=== PATIENT | male | born 1975 | race Caucasian/White ===

== ENCOUNTER → 2016-06-12 | Outpatient (CLI) | payer MEDICARE ==
[2016-02-28 10:51] VITALS: BP 160/96
[~2016-06-12] MED LIST: CYCL5TAB PO; DOCU-27 PO; GABA-586 PO; HYDR-2666 PO; OXYC-323 PO; OXYC5TAB88 PO
--- NOTE | 2016-06-12 08:59 | KCIC ---
ABDOMINAL ULTRASOUND, 06/12/2016: History: Abdominal pain The gallbladder is within normal limits in size. There is no sonographic evidence of cholelithiasis. The gallbladder funes are not thickened. No bile duct dilatation is seen. The liver demonstrates increased echogenicity suggesting fatty change. It measures 19 centimeters in craniocaudad extent. The pancreas and central retroperitoneum including the aorta and inferior vena cava were obscured by overlying bowel. The spleen was also not visualized. No renal abnormality is detected. No free fluid is evident in the abdomen. IMPRESSION: 1. No gallbladder abnormality is detected. 2. Increased hepatic echogenicity suggesting hepatic steatosis. 3. Inadequate visualization of the central retroperitoneum and the spleen due to overlying bowel and the patient's body habitus. Electronically signed by: Jeff Garcia MD (Jun 12, 2016 08:57:53)
== END | disposition home or self-care (01) ==
LOC: KCIC US 07:52
PROVIDERS: ATTEND Family Medicine
DX: R10.9 Unspecified abdominal pain (principal)
CPT/HCPCS: 76700

== ENCOUNTER → 2018-05-17 | Outpatient (CLI) | payer MEDICARE ==
[2016-02-28 10:51] VITALS: BP 160/96
[~2018-05-17] MED LIST changes: +AMOX1TAB61 PO; +ASCO500T2 PO; +DOCU-109 PO; -DOCU-27 PO; +DOXY100C2 PO; -GABA-586 PO; +GABA300C18 PO; -HYDR-2666 PO; +HYDR-2761 PO; +INSU100I11 SQ; +INSU100I13 SQ; +LISI-338 PO; +MULT1TAB90 PO; -OXYC-323 PO; +OXYC1TAB15 PO
[2018-05-17 15:17] LABS: BASO # 0.1 x10^3/uL (0.0-0.2); BASO % 1 % (0-3); EOS # 0.2 x10^3/uL (0.0-0.7); EOS % 2 % (0-3); HEMATOCRIT 50.4 % (39.0-53.0); HEMOGLOBIN 16.9 g/dL (13.0-17.5); LYMPH # 2.3 x10^3/uL (1.0-4.8); LYMPH % 22 % (24-48); MEAN CORPUSCULAR HEMOGLOBIN 29 pg (25-35); MEAN CORPUSCULAR HGB CONC 34 g/dL (31-37); MEAN CORPUSCULAR VOLUME 87 fL (79-100); MONO # 0.6 x10^3/uL (0.0-1.1); MONO % 6 % (0-9); NEUT # 7.1 x10^3uL (1.8-7.7); NEUT % 69 % (31-73); PLATELET COUNT 269 x10^3/uL (140-400); RED BLOOD COUNT 5.82 x10^6/uL (4.30-5.70); RED CELL DISTRIBUTION WIDTH 13.4 % (11.5-14.5); WHITE BLOOD COUNT 10.3 x10^3/uL (4.0-11.0)
[2018-05-17 15:44] LABS: ALBUMIN 3.3 g/dL (3.4-5.0); ALBUMIN/GLOBULIN RATIO 0.7 (1.0-1.7); C-REACTIVE PROTEIN 28.6 mg/L (0-3.3); CALCIUM 9.1 mg/dL (8.5-10.1); CREATININE 1.3 mg/dL (0.7-1.3); GFR 60.5; POTASSIUM 4.1 mmol/L (3.5-5.1); TOTAL BILIRUBIN 0.7 mg/dL (0.2-1.0); TOTAL PROTEIN 8.1 g/dL (6.4-8.2)
[2018-05-18 03:14] LABS: HEMOGLOBIN A1C 9.9 % (4.8-5.6)
== END | disposition home or self-care (01) ==
LOC: EDBD 14:52 → LAB 14:52
PROVIDERS: ATTEND Podiatrist
DX: E11.621 Type 2 diabetes mellitus with foot ulcer (principal)
CPT/HCPCS: 36415; 80053; 83036; 85025; 85651; 86140; 87071; 87075; 87186

== ENCOUNTER 2018-09-01 08:25 | Inpatient (IN) | payer MEDICARE ==
[~2018-09-01] VITALS: Ht 200.7 cm; Wt 138.8 kg
[2018-09-01] VITALS (11 sets, daily range): BP systolic 123–165; BP diastolic 65–77
[~2018-09-01 08:25] MED LIST changes: +HEPARIN SODIUM 5,000 UNIT in IV NORMAL SALINE 500ML BAG 500 ML IRR ONE; +HYDROmorphone 2 MG/ML VIAL IV PRN; +IV RINGERS,LACTATED 1000ML 1,000 ML IV SCH; +MORPHINE SULFATE 2 MG/ML VIAL. IV PRN; +ONDANSETRON PF 4 MG/2 ML VIAL. IV PRN; +PROCHLORPERAZINE 10 MG/2 ML VIAL. IV PRN; +fentaNYL PF VIAL 100 MCG/2 ML VIAL IV PRN
[2018-09-01] MEDS: INSULIN LISPRO 100 UNIT/ML 3ML VIAL for OP,RR ONLY. SQ PRN ×3 (09:24→15:28)
[2018-09-01] MEDS ORDERED: DEXAMETHASONE SOD PHOS 4 MG/ML VIAL ONE (09:31)
[2018-09-01] MEDS ORDERED: ONDANSETRON PF 4 MG/2 ML VIAL. ONE (09:31)
[2018-09-01] MEDS ORDERED: ROCURONIUM 50 MG/5 ML VIAL. ONE (09:31)
[2018-09-01] MEDS ORDERED: fentaNYL PF VIAL 100 MCG/2 ML VIAL ONE ×3 (09:31→14:51)
[2018-09-01] MEDS ORDERED: LIDOCAINE 2% PF 5 ML VIAL. ONE (09:31)
[2018-09-01] MEDS ORDERED: PROPOFOL 20 ML IV ONE (09:31)
[2018-09-01] MEDS ORDERED: MIDAZOLAM HCL/PF 2 MG/2 ML VIAL. ONE (09:32)
[2018-09-01] MEDS ORDERED: PAPAVERINE 60 MG/2 ML VIAL FOR OR ONLY. ONE (09:40)
[2018-09-01] MEDS ORDERED: IOHEXOL 300 MG/ML 50 ML VIAL. ONE (09:40)
[2018-09-01] MEDS ORDERED: GELATIN SPONGE SIZE 4 SPONGE. ONE (09:40)
[2018-09-01] MEDS ORDERED: SURGICEL FIBRILLAR 1X2 EACH. ONE (09:40)
[2018-09-01 09:55] LABS: CALCIUM 8.9 mg/dL (8.5-10.1); CREATININE 1.4 mg/dL (0.7-1.3); GFR 55.6; POTASSIUM 3.7 mmol/L (3.5-5.1)
[2018-09-01 10:20] LABS: BASO # 0.1 x10^3/uL (0.0-0.2); BASO % 1 % (0-3); EOS # 0.2 x10^3/uL (0.0-0.7); EOS % 1 % (0-3); HEMATOCRIT 42.7 % (39.0-53.0); HEMOGLOBIN 14.9 g/dL (13.0-17.5); LYMPH # 2.5 x10^3/uL (1.0-4.8); LYMPH % 21 % (24-48); MEAN CORPUSCULAR HEMOGLOBIN 29 pg (25-35); MEAN CORPUSCULAR HGB CONC 35 g/dL (31-37); MEAN CORPUSCULAR VOLUME 84 fL (79-100); MONO # 0.9 x10^3/uL (0.0-1.1); MONO % 7 % (0-9); NEUT # 8.5 x10^3/uL (1.8-7.7); NEUT % 70 % (31-73); PLATELET COUNT 271 x10^3/uL (140-400); RED BLOOD COUNT 5.05 x10^6/uL (4.30-5.70); RED CELL DISTRIBUTION WIDTH 13.2 % (11.5-14.5); WHITE BLOOD COUNT 12.2 x10^3/uL (4.0-11.0)
[2018-09-01] MEDS ORDERED: HEPARIN for IV BOLUS 10,000 UNIT/10 ML VIAL. ONE (11:26)
[2018-09-01] MEDS ORDERED: VANCOMYCIN 1 GM in IV NORMAL SALINE 250ML 250 ML IV ONE (11:30)
[2018-09-01] MEDS ORDERED: PHENYLEPHRINE in 0.9% NACL PF 1 MG/10 ML SYRINGE. IV ONE (11:35)
[2018-09-01] MEDS ORDERED: HEPARIN SODIUM 5,000 UNIT in IV NORMAL SALINE 500ML BAG 500 ML IRR ONE (14:00)
[2018-09-01] MEDS ORDERED: SEVOFLURANE > 120 MINUTES. IH ONE (14:45)
[2018-09-01] MEDS ORDERED: IV NORMAL SALINE 1000ML BAG 1,000 ML IV SCH (15:14)
[2018-09-01] MEDS ORDERED: LABETALOL 20 MG/4 ML DISP.SYRIN. IVP PRN (15:15)
[2018-09-01] MEDS ORDERED: oxyCODONE IR 5 MG TABLET PO PRN (15:15)
[2018-09-01] MEDS ORDERED: hydrALAZINE 20 MG/ML VIAL. IVP PRN (15:15)
[2018-09-01] MEDS ORDERED: PROCHLORPERAZINE 10 MG/2 ML VIAL. IV PRN (15:15)
[2018-09-01] MEDS ORDERED: 0.9 % SODIUM CHLORIDE 10 ML DISP.SYRIN. IV PRN (15:15)
[2018-09-01] MEDS ORDERED: NALOXONE 0.4 MG/ML VIAL. IV PRN ×2 (15:15)
[2018-09-01] MEDS ORDERED: VANCOMYCIN PER PHARMACY MC PRN (15:15)
[2018-09-01] MEDS ORDERED: PROCHLORPERAZINE 10 MG/2 ML VIAL. ONE (15:24)
--- NOTE | 2018-09-01 15:35 | PDOC ---
BRIEF OPERATIVE NOTE Date: Sep 01, 2018 Pre-Op Diagnosis PAD, Right lateral foot wound Post-Op Diagnosis same Procedure Performed Right femoral to posterior tibial bypass with greater saphenous vein Right lateral foot excisional debridement of skin, subcutaneous tissue and bone Surgeon Dr. Hooper Shotblast Operator Nnamdi Tay,SAADIA Walker Anesthesia Type: General Blood Loss 200cc Findings Doppler distal PT 5th metatarsal bone soft and necrotic Complications none Operative Note see dictated note NNAMDI TAY SAND MILL OPERATOR Sep 01, 2018 15:35
--- NOTE | 2018-09-01 16:42 | NUR ---
Pharmacy Vancomycin Dosing Note S: Consulted to monitor and dose vancomycin started 09/01/18. O: ENRIQUETA WRIGHT is a 42 year old M with Abscess, . Other Antibiotics: ZOSYN LABS: Last BUN: 17 Last Creatinine: 1.4 Creatinine Clearance: 104 mL/min Last WBC: 12.2 Last Procalcitonin: Tmax (past 24 hours): Microbiology: I/O: Drug Levels: Last level: on at Last dose given at Vancomycin Dosing: Dosing Weight: Actual Target Trough: 15-20 A: Based on: HT, WT AND RENAL FUNCTION P: 1. Begin Vancomycin 2000 mg IV q12h 2. Follow up Trough level on 09/03/18 at 0530 3. Pharmacy will continue to monitor, follow and adjust therapy as needed. VIOLET BENEDICT, [facility], 09/01/18 [id number]
[2018-09-01] MEDS: ASPIRIN ENTERIC COATED 81 MG TABLET.DR. PO SCH (16:49)
[2018-09-01] MEDS: CLOPIDOGREL BISULFATE 75 MG TABLET PO SCH (16:49)
[2018-09-01] MEDS: oxyCODONE/APAP 5/325 1 TAB TABLET PO PRN ×2 (16:50→21:37)
[2018-09-01] MEDS: IV NORMAL SALINE 1000ML BAG 1,000 ML IV SCH (16:50)
[2018-09-01] MEDS: PIPERACILLIN/TAZOBACTAM 3.375 GM in IV NORMAL SALINE 50ML 50 ML IV SCH ×2 (17:43→23:27)
[2018-09-01] MEDS ORDERED: DEXTROSE 50% 25 GM / 50ML DISP.SYRIN. IV PRN (17:45)
[2018-09-01] MEDS ORDERED: INSULIN LISPRO 300 UNITS/3 ML INSULN.PEN. SQ ONE (18:00)
[2018-09-01] MEDS: VANCOMYCIN 2 GM in IV NORMAL SALINE 500ML BAG 500 ML IV SCH (18:14)
--- NOTE | 2018-09-01 19:13 | OP ---
DATE OF SURGERY: 09/01/2018 SURGEON: Cass Hooper MD ASSISTANTS: 1. Eugenia Ramirez APRN 2. SAADIA Park PREOPERATIVE DIAGNOSES: Right lower extremity severe peripheral arterial disease with a nonhealing lateral foot open wound with necrotic tissue and exposed bone. POSTOPERATIVE DIAGNOSES: Right lower extremity severe peripheral arterial disease with a nonhealing lateral foot open wound with necrotic tissue and exposed bone. PROCEDURES PERFORMED: 1. Right common femoral artery to posterior tibial artery bypass graft using his right leg great saphenous vein in the nonreversed fashion. 2. Right leg great saphenous vein harvest with lysis of the valves; the vein was used in a nonreversed fashion. 3. Right lateral foot sharp excisional debridement removing necrotic skin, subcutaneous tissue, muscle, tendon, and a portion of the fifth metatarsal bone. Measurement after debridement was approximately 3.5 cm in length x 3.5 cm in width x 1.5 cm in depth. ANESTHESIA USED: General anesthesia. BLOOD LOSS: 200 mL. INDICATIONS FOR PROCEDURE: The patient is a 42-year-old male with a history of diabetes mellitus, who has developed severe peripheral arterial disease in his right lower extremity. He has developed a right lateral foot necrotic wound, which is nonhealing. He has been followed by Dr. Goff and evaluated with an angiogram, which showed severe occlusive disease throughout the right leg including occlusion of the right superficial femoral artery, popliteal artery, and proximal tibial arteries with reconstitution of the posterior tibial artery in the distal lower calf and ankle area. This is his best runoff to his right leg. Vein mapping was performed, which shows adequate vein for bypass conduit. Recommendations were made for right femoral to posterior tibial artery bypass graft with debridement of his right foot wound. Informed consent was obtained by myself from the patient including the risk of bleeding, infection, breakdown, infection of his long leg incisions requiring long-term wound care, possible bypass graft failure or need for revision in the future, possible worsening of his right foot wound, which would potentially require an amputation if it does not heal in the future. DESCRIPTION OF PROCEDURE: The patient was brought to the operating room and placed on the table in supine position. He received general anesthesia throughout the case monitored by the anesthesiologist. We used the ultrasounds prior to starting the case and marked the great saphenous vein along the length of the right leg. We began by making a longitudinal incision to the right groin. I dissected down through the subcutaneous tissue down to the femoral vessels. We dissected out the common femoral artery, profunda artery, and superficial femoral artery. The common femoral artery was very soft, noncalcified, and had a very strong palpable pulse within it. Medial to this, we found the great saphenous vein, which was dissected out up to the saphenofemoral junction. We dissected out distally within the wound. We made a second thigh incision and dissected out the great saphenous vein in the upper thigh connecting it up to the groin. This great saphenous vein was of very good size. It was at least 6-7 mm in diameter. The saphenous vein became very superficial in the midthigh and was visible through the skin; therefore, we made a long incision to the thigh down to the calf to fully expose the great saphenous vein and ensure no damage to the vein. There were multiple branches and varicose tight veins seen within the leg. We ligated branches with silk sutures, clipped distally, and divided them until we had the great saphenous vein completely mobilized. I made a longitudinal incision in the lower calf and upper ankle area along the medial aspect of the lower leg, dissected down to the subcutaneous tissue and fascia down to the posterior tibial space. The posterior tibial vein and artery were identified. I dissected out the posterior tibial artery and it was very soft at this location. The great saphenous vein was dissected out down to this distal incision for adequate length. We heparinized with 8000 units of heparin giving an additional 2000 units throughout the case. After the vein was fully mobilized, I clamped the saphenofemoral junction and divided the vein. We oversew the stump with two layers of 5-0 Prolene suture. The distal end of the great saphenous vein was ligated with 2-0 silk sutures, clips, and divided. We irrigated the vein with heparinized saline. It dilated nicely and had no areas of narrowing throughout the vein. We used a valvulotome. I cut the valves throughout the length of the vein and ensured good flow with no resistance after cutting the valves. We then clamped the proximal common femoral artery, profunda, and superficial femoral arteries. I made a longitudinal arteriotomy in the distal common femoral artery. The vessel was widely patent with no significant calcification. We then spatulated the proximal end of the great saphenous vein. I excised the visible valves out of the lumen of the vessel. We performed an end-to-side anastomosis between the great saphenous vein and the common femoral artery with running 6-0 Prolene suture. We then inspected the vein. There were several areas of venous branches, which we ligated with silk sutures again. There was one area that persistently was bleeding; therefore, I used the 7-0 Prolene suture, oversew this area, and ensured that there was no narrowing or twisting of the vein after this repair was performed. When the vein was very dry and had pulsatile blood flow through the end of it, we then used a Colin tunneler. His leg was very long in length. I made the first tunnel from the upper calf area below the fascia up to the groin, pulled the vein through this tunnel, and then had to do a second pass from the posterior tibial artery incision under the fascia up to the upper calf and brought the vein down. There was no bleeding from the tunnel tract and there was pulsatile blood flow through the end of the vein conduit, which we irrigated with heparinized saline and clamped. I made a longitudinal arteriotomy within the posterior tibial artery. There was good backbleeding. I ran a #3 Ivone embolectomy catheter distally, ran all the way into the foot, and pulled back. There was no thrombus and good backbleeding. I ran in the Ivone embolectomy catheter proximally and it did confirm occlusion of this vessel. We cut the vein to length, spatulated the end, and performed an end-to-side anastomosis with running 7-0 Prolene suture. Before finishing the anastomosis, we removed the clamps, backbled the vessels, then finished the anastomosis, and restored blood flow. There was strong dopplerable flow in the distal posterior tibial artery, which was graft dependent and strong dopplerable flow at the ankle level over the posterior tibial location, which was also graft dependent. We irrigated all incision sites with copious amounts of antibiotic solution. We gained good hemostasis with electrocautery and clips. Fibrillar was left over all the artery and anastomosis. The groin incision was closed with two layers of 2-0 Vicryl suture in the subcutaneous tissue level and teto on the skin. The posterior tibial incision was closed with two layers of 2-0 Vicryl suture in the subcutaneous tissue level and teto on the skin, and the long leg incision was closed with Vicryl suture in the subcutaneous tissue level and teto on the skin. A Prevena VAC was left in the groin and 4x4s on the long leg incision. I then debrided his right foot lateral wound. This was in the mid foot on the lateral surface. There was necrotic skin, subcutaneous tissue, muscle, and tendon within the wound, which were removed. His fifth metatarsal bone was within the wound. I used a rongeur. It was very soft and necrotic on the lateral aspect of this bone suggesting osteomyelitis. I removed the necrotic areas with a rongeur back to healthier bone. Electrocautery was used to gain hemostasis. This was packed with 4x4 gauze, Kerlix, and an Lemuel wrap. He tolerated the surgery with no immediate complications. Eugenia Ramirez was scrubbed throughout the entire length of this very complicated case. Marilee Fontaine was scrubbed for the vein harvest and anastomosis. CASS HOOPER MD DR: HENRIETTA/clau JOB#: [id number] / [id number]
[2018-09-01] MEDS: ASCORBIC ACID 500 MG TABLET PO SCH (21:38)
[2018-09-01] MEDS: ACETAMINOPHEN 325 MG TABLET. PO SCH (21:38)
--- NOTE | 2018-09-01 21:54 | PDOC1 ---
History and Physical Date of Admission Date of Admission DATE: 09/01/18 TIME: 21:52 Identification/Chief Complaint Chief Complaint 42-year-old male with a history of diabetes mellitus, who has developed severe peripheral arterial disease in his right lower extremity. He has developed a right lateral foot necrotic wound, He has been followed by Dr. Goff and evaluated with an angiogram, which showed severe occlusive disease throughout the right leg including occlusion of the right superficial femoral artery, popliteal artery, ADMITTED TODAY FOR DEFINITIVE SURGERY Past Medical History Cardiovascular: HTN, Hyperlipidemia Pulmonary: No pertinent hx CENTRAL NERVOUS SYSTEM: Periperal neuropathy GI: Constipation, GERD, Other Heme/Onc: No pertinent hx Hepatobiliary: No pertinent hx Psych: No pertinent hx Rheumatologic: Other Infectious disease: No pertinent hx Renal/: Chronic renal insuff Endocrine: Diabetes Past Surgical History Past Surgical History: Other Family History Family History: Heart Disease, High Cholestrol Social History Smoke: <1 pack per day ALCOHOL: occassional Drugs: None, Marijuana Current Medications Current Medications Current Medications Ondansetron HCl (Zofran) 4 mg PRN Q6HRS PRN IV NAUSEA/VOMITING; Start 09/01/18 at 07:00; Stop 09/01/18 at 21:00; Status DC Fentanyl Citrate (Fentanyl 2ml Vial) 25 mcg PRN Q5MIN PRN IV MILD PAIN 1-3; Start 09/01/18 at 07:00; Stop 09/01/18 at 21:00; Status DC Fentanyl Citrate (Fentanyl 2ml Vial) 50 mcg PRN Q5MIN PRN IV MODERATE TO SEVERE PAIN; Start 09/01/18 at 07:00; Stop 09/01/18 at 21:00; Status DC Morphine Sulfate (Morphine Sulfate) 1 mg PRN Q10MIN PRN IV SEVERE PAIN 7-10; Start 09/01/18 at 07:00; Stop 09/01/18 at 21:00; Status DC Ringer's Solution 1,000 ml @ 30 mls/hr Q24H IV Last administered on 09/01/18at 09:32; Start 09/01/18 at 07:00; Stop 09/01/18 at 18:59; Status DC Hydromorphone HCl (Dilaudid) 0.5 mg PRN Q10MIN PRN IV SEV PAIN, Second choice; Start 09/01/18 at 07:00; Stop 09/01/18 at 21:00; Status DC Prochlorperazine Edisylate (Compazine) 5 mg PACU PRN PRN IV NAUSEA, MRX1 Last administered on 09/01/18at 15:27; Start 09/01/18 at 07:00; Stop 09/01/18 at 21:00; Status DC Heparin Sodium (Porcine) 5000 unit/Sodium Chloride 505 ml @ 505 mls/hr 1X ONCE IRR Last administered on 09/01/18at 11:35; Start 09/01/18 at 06:00; Stop 09/01/18 at 06:59; Status DC Cefazolin Sodium 1 gm/Sodium Chloride 500 ml @ 500 mls/hr 1X ONCE IRR Last administered on 09/01/18at 11:35; Start 09/01/18 at 06:00; Stop 09/01/18 at 06:59; Status DC Cefazolin Sodium/ Dextrose 50 ml @ 100 mls/hr 1X PREOP PRN IV PRIOR TO PROCEDURE Last administered on 09/01/18at 11:00; Start 09/02/18 at 06:00; Stop 09/02/18 at 18:00 Insulin Human Lispro (HumaLOG VIAL for OP,RR ONLY) 0-10 units PRN Q1HR PRN SQ PER PROTOCOL Last administered on 09/01/18at 15:28; Start 09/01/18 at 09:15; Stop 09/01/18 at 21:00; Status DC Propofol 20 ml @ As Directed STK-MED ONCE IV ; Start 09/01/18 at 09:31; Stop 09/01/18 at 09:32; Status DC Lidocaine HCl (Lidocaine Pf 2% Vial) 5 ml STK-MED ONCE .ROUTE ; Start 09/01/18 at 09:31; Stop 09/01/18 at 09:32; Status DC Ondansetron HCl (Zofran) 4 mg STK-MED ONCE .ROUTE ; Start 09/01/18 at 09:31; Stop 09/01/18 at 09:32; Status DC Dexamethasone Sodium Phosphate (Decadron) 4 mg STK-MED ONCE .ROUTE ; Start 09/01/18 at 09:31; Stop 09/01/18 at 09:32; Status DC Rocuronium Q[place]man (Zemuron) 50 mg STK-MED ONCE .ROUTE ; Start 09/01/18 at 09:31; Stop 09/01/18 at 09:32; Status DC Fentanyl Citrate (Fentanyl 2ml Vial) 100 mcg STK-MED ONCE .ROUTE ; Start 09/01 at 09:31; Stop 09/01/18 at 09:32; Status DC Midazolam HCl (Versed) 2 mg STK-MED ONCE .ROUTE ; Start 09/01/18 at 09:32; Stop 09/01/18 at 09:33; Status DC Gelatin (Gelfoam Dental Sponge Size 4) 1 each STK-MED ONCE .ROUTE ; Start 09/01/18 at 09:40; Stop 09/01/18 at 10:40; Status DC Iohexol (Omnipaque 300 Mg/ml) 50 ml STK-MED ONCE .ROUTE ; Start 09/01/18 at 09:40; Stop 09/01/18 at 10:40; Status DC Cellulose (Surgicel Fibrillar 1x2) 1 each STK-MED ONCE .ROUTE Last administered on 09/01/18at 14:37; Start 09/01/18 at 09:40; Stop 09/01/18 at 10:40; Status DC Papaverine HCl 60 mg STK-MED ONCE .ROUTE ; Start 09/01/18 at 09:40; Stop 09/01/18 at 10:40; Status DC Vancomycin HCl 1 gm/Sodium Chloride 250 ml @ 250 mls/hr 1X ONCE IV Last administered on 09/01/18at 11:30; Start 09/01/18 at 11:30; Stop 09/01/18 at 12:29; Status DC Heparin Sodium (Porcine) (Heparin Sodium) 10,000 unit STK-MED ONCE .ROUTE ; Start 09/01/18 at 11:26; Stop 09/01/18 at 11:27; Status DC Phenylephrine HCl (PHENYLEPHRINE in 0.9% NACL PF) 1 mg STK-MED ONCE IV ; Start 09/01/18 at 11:35; Stop 09/01/18 at 11:36; Status DC Fentanyl Citrate (Fentanyl 2ml Vial) 100 mcg STK-MED ONCE .ROUTE ; Start 09/01/18 at 12:30; Stop 09/01/18 at 12:31; Status DC Heparin Sodium (Porcine) 5000 unit/Sodium Chloride 505 ml @ 505 mls/hr 1X ONCE IRR Last administered on 09/01/18at 14:37; Start 09/01/18 at 14:00; Stop 09/01/18 at 14:59; Status DC Cefazolin Sodium 1 gm/Sodium Chloride 500 ml @ 500 mls/hr 1X ONCE IRR Last administered on 09/01/18at 14:36; Start 09/01/18 at 14:30; Stop 09/01/18 at 15:29; Status DC Cefazolin Sodium/ Dextrose 50 ml @ 100 mls/hr 1X ONCE IV Last administered on 09/01/18at 15:00; Start 09/01/18 at 15:00; Stop 09/01/18 at 15:29; Status DC Sevoflurane (Ultane) 90 ml STK-MED ONCE IH ; Start 09/01/18 at 14:45; Stop 09/01/18 at 14:46; Status DC Fentanyl Citrate (Fentanyl 2ml Vial) 100 mcg STK-MED ONCE .ROUTE ; Start 09/01/18 at 14:51; Stop 09/01/18 at 14:52; Status DC Ascorbic Acid (Vitamin C) 500 mg BID PO Last administered on 09/01/18at 21:38; Start 09/01/18 at 21:00 Multivitamins (Thera M Plus) 1 tab DAILY PO ; Start 09/02/18 at 09:00 Lisinopril (Prinivil) 5 mg DAILY PO ; Start 09/02/18 at 09:00 Prochlorperazine Edisylate (Compazine) 10 mg STK-MED ONCE .ROUTE ; Start 09/01/18 at 15:24; Stop 09/01/18 at 15:25; Status DC Aspirin (Ecotrin) 81 mg DAILYWBKFT PO Last administered on 09/01/18at 16:49; Start 09/01/18 at 17:00 Clopidogrel Bisulfate (Plavix) 75 mg DAILYWBKFT PO Last administered on 09/01/18at 16:49; Start 09/01/18 at 17:00 Oxycodone HCl (Roxicodone) 5 mg PRN Q3HRS PRN PO UNRELIEVED PAIN; Start 09/01/18 at 15:15 Info (Non-Icu Electrolyte Protocol) 1 ea PRN DAILY PRN MC SEE COMMENTS; Start 09/02/18 at 09:00 Naloxone HCl (Narcan) 0.1 mg PRN Q2MIN PRN IV ADMIN; Start 09/01/18 at 15:15 Sodium Chloride (Normal Saline Flush) 3 ml QSHIFT PRN IV AFTER MEDS AND BLOOD DRAWS; Start 09/01/18 at 15:15 Sodium Chloride 1,000 ml @ 100 mls/hr Q10H IV Last administered on 09/01/18at 16:50; Start 09/01/18 at 18:00 Oxycodone/ Acetaminophen (Percocet 5/325) 1 tab PRN Q4HRS PRN PO MILD PAIN, 1ST CHOICE; Start 09/01/18 at 15:15 Oxycodone/ Acetaminophen (Percocet 5/325) 2 tab PRN Q4HRS PRN PO MODERATE PAIN, SEVERE PAIN Last administered on 09/01/18at 21:37; Start 09/01/18 at 15:15 Acetaminophen (Tylenol) 650 mg Q8HRS PO Last administered on 09/01/18at 21:38; Start 09/01/18 at 22:00 Morphine Sulfate (Morphine Sulfate) 2 mg PRN Q1HR PRN IV PAIN; Start 09/01/18 at 15:15 Naloxone HCl (Narcan) 0.4 mg PRN Q2MIN PRN IV SEE INSTRUCTIONS; Start 09/01/18 at 15:15; Status UNV Sodium Chloride 1,000 ml @ 25 mls/hr Q24H IV ; Start 09/01/18 at 15:14; Status UNV Senna/Docusate Sodium (Senna Plus) 1 tab PRN BID PRN PO CONSTIPATION; Start 09/01/18 at 15:15 Ondansetron HCl (Zofran) 4 mg PRN Q6HRS PRN IV NAUESA, 1ST CHOICE; Start 09/01/18 at 15:15 Prochlorperazine Edisylate (Compazine) 5 mg PRN Q6HRS PRN IV N/V, 2nd Choice, MR X1; Start 09/01/18 at 15:15 Hydralazine HCl (Apresoline Inj) 5 mg PRN Q4HRS PRN IVP ELEVATED BP, 1st CHOICE; Start 09/01/18 at 15:15 Labetalol HCl (Normodyne Iv Push) 10 mg PRN Q2HR PRN IVP HYPERTENSION, 2nd CHOICE; Start 09/01/18 at 15:15 Piperacillin Sod/ Tazobactam Sod 3.375 gm/Sodium Chloride 50 ml @ 100 mls/hr Q6HRS IV Last administered on 09/01/18at 17:43; Start 09/01/18 at 18:00 Vancomycin HCl (Vanco Per Pharmacy) 1 each PRN DAILY PRN MC SEE COMMENTS Last administered on 09/01/18at 16:40; Start 09/01/18 at 15:15 Vancomycin HCl 2 gm/Sodium Chloride 500 ml @ 250 mls/hr Q12H IV Last administered on 09/01/18at 18:14; Start 09/01/18 at 18:00 Vancomycin HCl (Vancomycin Trough Level) 1 each 1X ONCE MC ; Start 09/03/18 at 05:30; Stop 09/03/18 at 05:31 Insulin Human Lispro (HumaLOG) 0-7 UNITS TIDWMEALS SQ ; Start 09/02/18 at 08:00 Dextrose (Dextrose 50%-Water Syringe) 12.5 gm PRN Q15MIN PRN IV SEE COMMENTS; Start 09/01/18 at 17:45 Insulin Human Lispro (HumaLOG) 5 units 1X ONCE SQ Last administered on 09/01/18at 17:50; Start 09/01/18 at 18:00; Stop 09/01/18 at 18:01; Status DC Active Scripts Active Lisinopril 5 Mg Tablet 1 Tab PO DAILY Doxycycline Hyclate 100 Mg Capsule 1 Cap PO BID Augmentin 875-125 Tablet (Amoxicillin/Potassium Clav) 1 Each Tablet 1 Tab PO BID Thera-M Tablet (Multivits,Ca,Minerals/Iron/Fa) 1 Each Tablet 1 Tab PO DAILY 30 Days Vitamin C (Ascorbic Acid) 500 Mg Tablet 500 Mg PO BID 30 Days Allergies Allergies: Coded Allergies: No Known Drug Allergies (Unverified , 09/01/18) ROS Review of System Physical Exam Physical Exam Constitutional: Well developed, well nourished, no acute distress, non-toxic appearance. [] HENT: Normocephalic, atraumatic, bilateral external ears normal, oropharynx moist, no oral exudates, nose normal. [] Eyes: PERRLA, EOMI, conjunctiva normal. [] Neck: Normal range of motion. [] Cardiovascular:Heart rate regular rhythm, no murmur [] Lungs & Thorax: Bilateral breath sounds clear to auscultation []s Extremities: Right foot DRY DRESSING NOT REMOVED POST-OP Neurologic: Alert and oriented X 3, normal motor function, normal sensory function, no focal deficits noted. [] Psychologic: Affect normal, judgement normal, mood normal. [] General: YES: Fatigue PSYCHOLOGICAL ROS: YES: Anxiety ALLERGY AND IMMUNOLOGY: No: Hives, Insect Bite Sensitivity, Itchy/Watery Eyes, Nasal Congestion, Post Nasal Drip, Seasonal Allergies, Other Cardiovascular: No Chest Pain, No Palpitations, No Orthopnea, No Paroxysmal Noc. Dyspnea, No Edema, No Lt Headedness, No Other Gastrointestinal: Yes Nausea Musculoskeletal: Yes Gait Disturbance, Yes Joint Stiffness Skin: Yes Dry Skin, Yes Skin Lesion Changes Physical Exam General: Alert, Oriented X3, Cooperative, No acute distress, mild distress HEENT: PERRLA Lungs: Clear to auscultation, Normal air movement Heart: S1S2, RRR, no gallops Breasts: Not examined Abdomen: Normal bowel sounds, Soft Rectal Exam: not examined PELVIC: Examination not indicated Neuro: Normal speech, Cranial nerves 3-12 NL Psych/Mental Status: Mental status NL Vitals Vitals Vital Signs Date Time Temp Pulse Resp B/P (MAP) Pulse Ox O2 Delivery O2 Flow Rate FiO2 09/01/18 21:37 18 94 Room Air 09/01/18 19:46 98.0 88 123/65 (84) 98.0 09/01/18 15:15 8 Labs Labs Laboratory Tests Test 09/01/18 08:49 09/01/18 09:25 09/01/18 10:49 09/01/18 15:20 Glucose (Fingerstick) 254 mg/dL (70-99) 218 mg/dL (70-99) 268 mg/dL (70-99) White Blood Count 12.2 x10^3/uL (4.0-11.0) Red Blood Count 5.05 x10^6/uL (4.30-5.70) Hemoglobin 14.9 g/dL (13.0-17.5) Hematocrit 42.7 % (39.0-53.0) Mean Corpuscular Volume 84 fL (79-100) Mean Corpuscular Hemoglobin 29 pg (25-35) Mean Corpuscular Hemoglobin Concent 35 g/dL (31-37) Red Cell Distribution Width 13.2 % (11.5-14.5) Platelet Count 271 x10^3/uL (140-400) Neutrophils (%) (Auto) 70 % (31-73) Lymphocytes (%) (Auto) 21 % (24-48) Monocytes (%) (Auto) 7 % (0-9) Eosinophils (%) (Auto) 1 % (0-3) Basophils (%) (Auto) 1 % (0-3) Neutrophils # (Auto) 8.5 x10^3/uL (1.8-7.7) Lymphocytes # (Auto) 2.5 x10^3/uL (1.0-4.8) Monocytes # (Auto) 0.9 x10^3/uL (0.0-1.1) Eosinophils # (Auto) 0.2 x10^3/uL (0.0-0.7) Basophils # (Auto) 0.1 x10^3/uL (0.0-0.2) Sodium Level 136 mmol/L (136-145) Potassium Level 3.7 mmol/L (3.5-5.1) Chloride Level 98 mmol/L (98-107) Carbon Dioxide Level 26 mmol/L (21-32) Anion Gap 12 (6-14) Blood Urea Nitrogen 17 mg/dL (8-26) Creatinine 1.4 mg/dL (0.7-1.3) Estimated GFR (Cockcroft-Gault) 55.6 Glucose Level 271 mg/dL (70-99) Calcium Level 8.9 mg/dL (8.5-10.1) Test 09/01/18 17:24 09/01/18 20:19 Glucose (Fingerstick) 240 mg/dL (70-99) 223 mg/dL (70-99) Laboratory Tests Test 09/01/18 08:49 09/01/18 09:25 09/01/18 10:49 09/01/18 15:20 Glucose (Fingerstick) 254 mg/dL (70-99) 218 mg/dL (70-99) 268 mg/dL (70-99) White Blood Count 12.2 x10^3/uL (4.0-11.0) Red Blood Count 5.05 x10^6/uL (4.30-5.70) Hemoglobin 14.9 g/dL (13.0-17.5) Hematocrit 42.7 % (39.0-53.0) Mean Corpuscular Volume 84 fL (79-100) Mean Corpuscular Hemoglobin 29 pg (25-35) Mean Corpuscular Hemoglobin Concent 35 g/dL (31-37) Red Cell Distribution Width 13.2 % (11.5-14.5) Platelet Count 271 x10^3/uL (140-400) Neutrophils (%) (Auto) 70 % (31-73) Lymphocytes (%) (Auto) 21 % (24-48) Monocytes (%) (Auto) 7 % (0-9) Eosinophils (%) (Auto) 1 % (0-3) Basophils (%) (Auto) 1 % (0-3) Neutrophils # (Auto) 8.5 x10^3/uL (1.8-7.7) Lymphocytes # (Auto) 2.5 x10^3/uL (1.0-4.8) Monocytes # (Auto) 0.9 x10^3/uL (0.0-1.1) Eosinophils # (Auto) 0.2 x10^3/uL (0.0-0.7) Basophils # (Auto) 0.1 x10^3/uL (0.0-0.2) Sodium Level 136 mmol/L (136-145) Potassium Level 3.7 mmol/L (3.5-5.1) Chloride Level 98 mmol/L (98-107) Carbon Dioxide Level 26 mmol/L (21-32) Anion Gap 12 (6-14) Blood Urea Nitrogen 17 mg/dL (8-26) Creatinine 1.4 mg/dL (0.7-1.3) Estimated GFR (Cockcroft-Gault) 55.6 Glucose Level 271 mg/dL (70-99) Calcium Level 8.9 mg/dL (8.5-10.1) Test 09/01/18 17:24 09/01/18 20:19 Glucose (Fingerstick) 240 mg/dL (70-99) 223 mg/dL (70-99) VTE Prophylaxis Ordered VTE Prophylaxis Devices: Yes VTE Pharmacological Prophylaxi: Yes Assessment/Plan Assessment/Plan IMPRESSION RIGHT Diabetic foot ulcer with cellulitis ///osteomyelitis. Severe peripheral vascular disease right lower extremity, cellulitis severe occlusive disease throughout the right leg including occlusion of the right superficial femoral artery, popliteal artery, Chronic epigastric pain due to gastroparesis and possible gallbladder disease. Type 2 diabetes, UNCONTROLLED LAST A1C =9.4 Hypertension. MORBID OBESITY HX NONCOMPLIANCE PLAN ADMIT CONSULT DR STEPHENS CV BED Right femoral to posterior tibial bypass with greater saphenous vein TODAY 09/01 Right lateral foot sharp excisional debridement removing necrotic skin, subcutaneous tissue, muscle, tendon, and a portion of the fifth metatarsal bone. Measurement after debridement was approximately 3.5 cm in length x 3.5 cm in width x 1.[address] STEPHENS 09/01 needs followup colonoscopy /// regarding his history of malignant colonic polyp. 76 MIN PT EXAM, CHART REVIEW, > 50% OF TIME SPENT WITH EXAM, CHART REVIEW, PT CARE COORDINATION ASSISTANTS: 1. Eugenia Ramirez APRN 2. SAADIA Park PREOPERATIVE DIAGNOSES: Right lower extremity severe peripheral arterial disease with a nonhealing lateral foot open wound with necrotic tissue and exposed bone. POSTOPERATIVE DIAGNOSES: Right lower extremity severe peripheral arterial disease with a nonhealing lateral foot open wound with necrotic tissue and exposed bone. PROCEDURES PERFORMED: 1. Right common femoral artery to posterior tibial artery bypass graft using his right leg great saphenous vein in the nonreversed fashion. 2. Right leg great saphenous vein harvest with lysis of the valves; the vein was used in a nonreversed fashion. 3. Right lateral foot sharp excisional debridement removing necrotic skin, subcutaneous tissue, muscle, tendon, and a portion of the fifth metatarsal bone. Measurement after debridement was approximately 3.5 cm in length x 3.5 cm in width x 1.5 cm in depth. ANESTHESIA USED: General anesthesia. BLOOD LOSS: 200 mL. INDICATIONS FOR PROCEDURE: The patient is a 42-year-old male with a history of diabetes mellitus, who has developed severe peripheral arterial disease in his right lower extremity. He has developed a right lateral foot necrotic wound, which is nonhealing. He has been followed by Dr. Goff and evaluated with an angiogram, which showed severe occlusive disease throughout the right leg including occlusion of the right superficial femoral artery, popliteal artery, RUPA CARDENAS MD Sep 01, 2018 21:54
[2018-09-02] MEDS: oxyCODONE/APAP 5/325 1 TAB TABLET PO PRN ×3 (02:14→21:18)
[2018-09-02 03:25] VITALS: BP 152/78
[2018-09-02] MEDS: IV NORMAL SALINE 1000ML BAG 1,000 ML IV SCH ×3 (04:02→23:49)
[2018-09-02] MEDS: PIPERACILLIN/TAZOBACTAM 3.375 GM in IV NORMAL SALINE 50ML 50 ML IV SCH ×4 (05:02→23:49)
[2018-09-02] MEDS: ACETAMINOPHEN 325 MG TABLET. PO SCH ×3 (05:29→21:28)
[2018-09-02] MEDS: VANCOMYCIN 2 GM in IV NORMAL SALINE 500ML BAG 500 ML IV SCH (05:48)
[2018-09-02 06:06] LABS: BASO # 0.1 x10^3/uL (0.0-0.2); BASO % 1 % (0-3); EOS % 0 % (0-3); HEMATOCRIT 40.4 % (39.0-53.0); LYMPH # 1.2 x10^3/uL (1.0-4.8); LYMPH % 9 % (24-48); MEAN CORPUSCULAR HEMOGLOBIN 30 pg (25-35); MEAN CORPUSCULAR HGB CONC 35 g/dL (31-37); MEAN CORPUSCULAR VOLUME 86 fL (79-100); MONO # 0.9 x10^3/uL (0.0-1.1); MONO % 6 % (0-9); NEUT # 11.4 x10^3/uL (1.8-7.7); NEUT % 84 % (31-73); PLATELET COUNT 218 x10^3/uL (140-400); RED BLOOD COUNT 4.72 x10^6/uL (4.30-5.70); RED CELL DISTRIBUTION WIDTH 13.3 % (11.5-14.5); WHITE BLOOD COUNT 13.5 x10^3/uL (4.0-11.0)
[2018-09-02 06:12] LABS: CALCIUM 8.6 mg/dL (8.5-10.1); CREATININE 1.4 mg/dL (0.7-1.3); GFR 55.6; PHOSPHORUS 3.9 mg/dL (2.6-4.7)
[2018-09-02 07:00] VITALS: BP 161/76
[2018-09-02] MEDS: ASPIRIN ENTERIC COATED 81 MG TABLET.DR. PO SCH (08:18)
[2018-09-02] MEDS: MULTIVITAMIN with MINERAL TABLET. PO SCH (08:18)
[2018-09-02] MEDS: SENNOSIDES/DOCUSATE 8.6/50MG TABLET. PO PRN (08:18)
[2018-09-02] MEDS: CLOPIDOGREL BISULFATE 75 MG TABLET PO SCH (08:19)
[2018-09-02] MEDS: ASCORBIC ACID 500 MG TABLET PO SCH ×2 (08:19→21:13)
[2018-09-02] MEDS: LISINOPRIL 5 MG TABLET. PO SCH (08:20)
[2018-09-02] MEDS: INSULIN LISPRO 300 UNITS/3 ML INSULN.PEN. SQ SCH ×3 (08:29→18:06)
[2018-09-02] MEDS ORDERED: ELECTROLYTE (NON-ICU) PROTOCOL MC PRN (09:00)
--- NOTE | 2018-09-02 09:14 | PDOC ---
Infectious Disease Note Vital Sign Vital Signs Vital Signs Date Time Temp Pulse Resp B/P (MAP) Pulse Ox O2 Delivery O2 Flow Rate FiO2 09/02/18 08:20 80 161/76 09/02/18 08:19 16 Room Air 09/02/18 07:00 98.5 93 98.5 09/01/18 15:15 8 Labs Lab Laboratory Tests Test 09/01/18 09:25 09/01/18 10:49 09/01/18 15:20 09/01/18 17:24 White Blood Count 12.2 x10^3/uL (4.0-11.0) Red Blood Count 5.05 x10^6/uL (4.30-5.70) Hemoglobin 14.9 g/dL (13.0-17.5) Hematocrit 42.7 % (39.0-53.0) Mean Corpuscular Volume 84 fL (79-100) Mean Corpuscular Hemoglobin 29 pg (25-35) Mean Corpuscular Hemoglobin Concent 35 g/dL (31-37) Red Cell Distribution Width 13.2 % (11.5-14.5) Platelet Count 271 x10^3/uL (140-400) Neutrophils (%) (Auto) 70 % (31-73) Lymphocytes (%) (Auto) 21 % (24-48) Monocytes (%) (Auto) 7 % (0-9) Eosinophils (%) (Auto) 1 % (0-3) Basophils (%) (Auto) 1 % (0-3) Neutrophils # (Auto) 8.5 x10^3/uL (1.8-7.7) Lymphocytes # (Auto) 2.5 x10^3/uL (1.0-4.8) Monocytes # (Auto) 0.9 x10^3/uL (0.0-1.1) Eosinophils # (Auto) 0.2 x10^3/uL (0.0-0.7) Basophils # (Auto) 0.1 x10^3/uL (0.0-0.2) Sodium Level 136 mmol/L (136-145) Potassium Level 3.7 mmol/L (3.5-5.1) Chloride Level 98 mmol/L (98-107) Carbon Dioxide Level 26 mmol/L (21-32) Anion Gap 12 (6-14) Blood Urea Nitrogen 17 mg/dL (8-26) Creatinine 1.4 mg/dL (0.7-1.3) Estimated GFR (Cockcroft-Gault) 55.6 Glucose Level 271 mg/dL (70-99) Calcium Level 8.9 mg/dL (8.5-10.1) Glucose (Fingerstick) 218 mg/dL (70-99) 268 mg/dL (70-99) 240 mg/dL (70-99) Test 09/01/18 20:19 09/02/18 05:00 09/02/18 07:43 Glucose (Fingerstick) 223 mg/dL (70-99) 262 mg/dL (70-99) White Blood Count 13.5 x10^3/uL (4.0-11.0) Red Blood Count 4.72 x10^6/uL (4.30-5.70) Hemoglobin 14.0 g/dL (13.0-17.5) Hematocrit 40.4 % (39.0-53.0) Mean Corpuscular Volume 86 fL (79-100) Mean Corpuscular Hemoglobin 30 pg (25-35) Mean Corpuscular Hemoglobin Concent 35 g/dL (31-37) Red Cell Distribution Width 13.3 % (11.5-14.5) Platelet Count 218 x10^3/uL (140-400) Neutrophils (%) (Auto) 84 % (31-73) Lymphocytes (%) (Auto) 9 % (24-48) Monocytes (%) (Auto) 6 % (0-9) Eosinophils (%) (Auto) 0 % (0-3) Basophils (%) (Auto) 1 % (0-3) Neutrophils # (Auto) 11.4 x10^3/uL (1.8-7.7) Lymphocytes # (Auto) 1.2 x10^3/uL (1.0-4.8) Monocytes # (Auto) 0.9 x10^3/uL (0.0-1.1) Eosinophils # (Auto) 0.0 x10^3/uL (0.0-0.7) Basophils # (Auto) 0.1 x10^3/uL (0.0-0.2) Sodium Level 138 mmol/L (136-145) Potassium Level 4.0 mmol/L (3.5-5.1) Chloride Level 102 mmol/L (98-107) Carbon Dioxide Level 27 mmol/L (21-32) Anion Gap 9 (6-14) Blood Urea Nitrogen 20 mg/dL (8-26) Creatinine 1.4 mg/dL (0.7-1.3) Estimated GFR (Cockcroft-Gault) 55.6 Glucose Level 244 mg/dL (70-99) Calcium Level 8.6 mg/dL (8.5-10.1) Phosphorus Level 3.9 mg/dL (2.6-4.7) Magnesium Level 2.0 mg/dL (1.8-2.4) Objective Assessment R foot osteomyelitis s/p I and D 09/01 PAD - s/p Bypass RLE 09/01 Leukocytosis - s/p Dexamethasone 09/01 RAVEN - stable DM Recent MRSE H/o Strep Gallolyticus Plan Plan of Care Discont Vanc with RAVEN and dose Dapto F/u Cr Sed rate this am cont Zosyn for now - Had been on Doxy and augmentin prior to admit Will need PICC Social service eval Needs Colonoscopy if not performed since August 2014 2ith h/o Strep Gallolyticus Thank you # [id number] LUKE HANDLEY MD Sep 02, 2018 09:14
--- NOTE | 2018-09-02 09:21 | PDOC ---
PROGRESS NOTES Subjective Subjective Patient seen and examined in room. Family at bedside. Patient complains of minimal incisional and foot pain. Patient complains of nausea and vomiting. He is tolerating some fluids. Patient is complaining of constipation. Objective Objective Vital Signs Date Time Temp Pulse Resp B/P (MAP) Pulse Ox O2 Delivery O2 Flow Rate FiO2 09/02/18 08:20 80 161/76 09/02/18 08:19 16 Room Air 09/02/18 07:00 98.5 93 98.5 09/01/18 15:15 8 Intake and Output 09/02/18 07:00 Intake Total 3890 ml Output Total 1925 ml Balance 1965 ml Intake Oral 790 ml IV Total 3100 ml Output Urine Total 1725 ml Estimated Blood Loss 200 ml # Voids 100 Physical Exam Abdomen: Normal bowel sounds, Soft Heart: Regular rate Extremities: Other (foot is warm, moderate swelling, Doppler biphasic posterior tibial pulse. Capillary refill less than 3 seconds.) Lungs: Normal air movement Neuro: Other (motor and sensation intact right foot.) Skin: Other (incisional dressings dry and intact, pervenous VAC to right groin.) Assessment Assessment 1. Right lower extremity severe peripheral arterial disease with a nonhealing lateral foot open wound with necrotic tissue and exposed bone. POD #1 PROCEDURES PERFORMED: Right common femoral artery to posterior tibial artery bypass graft using his right leg great saphenous vein in the nonreversed fashion. Right lateral foot sharp excisional debridement removing necrotic skin, subcutaneous tissue, muscle, tendon, and a portion of the fifth metatarsal bone. 2. Diabetes. 3. Hyperlipidemia. Plan Plan of Care 1. Activity as tolerated, with right heel touch only, PT eval. If patient is unable to manage heel touch will need full non-weight bearing. 2. Wound team consult with wound vac placement to lateral right foot wound. 3. Saline lock and discontinue IV fluids when nausea and vomiting subsides. 4. Aggressive diabetes management, patient with hx of noncompliance, management per IM. 5. Daily Aspirin and Plavix, prescription for Plavix on chart will need to continue for at least 90 days for maintenance of bypass graft. 6. SS consult, patient will need home vac, antibiotics, and financial assistance with medications. 7. Hyperlipidemia-elevated last admission, recommend statin therapy, management per IM. 8. Albumin 3.0 last visit, nutritional consult. Comment Labs Laboratory reviewed 07/24/2018 Albumin 3.0 LDL 113 HDL 25 Triglycerides 135 Medications reviewed Vitals/I & O reviewed NNAMDI TAY APRN Sep 02, 2018 09:21
[2018-09-02] MEDS: MORPHINE SULFATE 2 MG/ML VIAL. IV PRN ×3 (09:49→17:58)
[2018-09-02] MEDS: DAPTOmycin (GENERIC) IVPB 760 MG in IV NORMAL SALINE 50ML 50 ML IV SCH (10:26)
[2018-09-02 11:00] VITALS: BP 268/80
[2018-09-02] MEDS ORDERED: ONDANSETRON ODT 4 MG TAB.RAPDIS. PO PRN (11:30)
--- NOTE | 2018-09-02 11:35 | NUR ---
SS following for discharge planning. SS reviewed pt chart. Pt is from home and is currently on room air. Per ID pt will need outpatient IV antibiotics at discharge. SS will continue to follow for discharge planning.
[2018-09-02] MEDS: ONDANSETRON PF 4 MG/2 ML VIAL. IV PRN (11:49)
[2018-09-02] MEDS ORDERED: LIDOCAINE WITH 8.4% SOD BICARB 3 ML DISP.SYRIN. ONE (11:57)
[2018-09-02] MEDS ORDERED: LIDOCAINE WITH 8.4% SOD BICARB 3 ML DISP.SYRIN. IJ ONE (12:15)
--- NOTE | 2018-09-02 13:44 | RAD ---
Exam: Fluoroscopic and ultrasound guided right percutaneous inserted central venous catheter placement 09/02/2018 1:39 PM .Indication: assisted IV antibiotics Technique: Informed oral and written consent were obtained. The right upper extremity was prepped and draped using sterile barrier technique. All elements of maximal sterile barrier technique including the use of a cap, mask, sterile gown, sterile gloves, large sterile sheet, appropriate hand hygiene, and 2% chlorhexidine for cutaneous antisepsis (or acceptable alternative antiseptic per current guidelines) were followed for this procedure.. Real-time ultrasound demonstrated a patent right basilic vein. The right upper extremity was prepped and draped in usual sterile fashion. 1% lidocaine used for local anesthesia. Using real-time ultrasound guidance the access needle percutaneously punctured the selected vein. Reference ultrasound images were saved to the medical record. A guidewire was advanced through the needle to the cavoatrial junction, and a peel-away sheath placed. The catheter was cut to length and inserted through the peel-away sheath. The final position of the catheter was confirmed by fluoroscopy, with tip at the cavoatrial junction. The wire and sheath were removed, and the catheter secured in place, and a sterile dressing was applied. Catheter was found to flush and aspirate normally. No immediate complications are identified. FLUORO TIME: 0.6 Minutes DOSE AREA PRODUCT: 7 Gycm2 Impression: Ultrasound and fluoroscopically guided placement of a right upper extremity PICC line.
[2018-09-02 15:00] VITALS: BP 137/71
--- NOTE | 2018-09-02 15:48 | NUR ---
Wound Care Wound care consult for right lateral foot open surgical incision. Pt is [facility] patient. I&D performed yesterday by Dr Hooper with order to place wound vac today. Cleansed wound and applied collagen to base of wound to assist with slow bleeding. Wound vac applied with silver foam at 125 mmHg continuous pressure. Pt has surgical incisions to R lower leg and upper leg with occlusive dressing in place. No other wounds noted on full skin inspection. will continue to follow in and outpatient for wound vac dressing changes and wound assessment.
--- NOTE | 2018-09-02 17:18 | PDOC ---
PROGRESS NOTES Subjective Subjective Patient transferred to our care after inadvertently being admitted to [facility]. Patient has complaints of nausea. This is chronic but has been exacerbated by the recent surgery and anesthesia. Objective Objective Vital Signs Date Time Temp Pulse Resp B/P (MAP) Pulse Ox O2 Delivery O2 Flow Rate FiO2 09/02/18 15:00 98.0 61 14 137/71 (93) 97 Room Air 98.0 09/02/18 08:00 8.0 Intake and Output 09/02/18 06:59 Intake Total 3890 ml Output Total 1925 ml Balance 1965 ml Intake Oral 790 ml IV Total 3100 ml Output Urine Total 1725 ml Estimated Blood Loss 200 ml # Voids 100 Physical Exam Abdomen: Normal bowel sounds Heart: Regular rate, Normal S1 Extremities: Normal pulses General: Alert Lungs: Other Assessment Assessment Type 2 diabetes high noncompliant. Diabetic gastroparesis. Severe peripheral breast disease status post revascularization of right lower extremity postop day 1. Plan Plan of Care Plan continue IV antibiotics per infectious disease number to Continue postoperative care Add Zofran for nausea consider Compazine Comment Review of Relevant I have reviewed the following items jo (where applicable) has been applied. Labs Laboratory Tests Test 09/01/18 08:49 09/01/18 09:25 09/01/18 10:49 09/01/18 15:20 Glucose (Fingerstick) 254 mg/dL (70-99) 218 mg/dL (70-99) 268 mg/dL (70-99) White Blood Count 12.2 x10^3/uL (4.0-11.0) Red Blood Count 5.05 x10^6/uL (4.30-5.70) Hemoglobin 14.9 g/dL (13.0-17.5) Hematocrit 42.7 % (39.0-53.0) Mean Corpuscular Volume 84 fL (79-100) Mean Corpuscular Hemoglobin 29 pg (25-35) Mean Corpuscular Hemoglobin Concent 35 g/dL (31-37) Red Cell Distribution Width 13.2 % (11.5-14.5) Platelet Count 271 x10^3/uL (140-400) Neutrophils (%) (Auto) 70 % (31-73) Lymphocytes (%) (Auto) 21 % (24-48) Monocytes (%) (Auto) 7 % (0-9) Eosinophils (%) (Auto) 1 % (0-3) Basophils (%) (Auto) 1 % (0-3) Neutrophils # (Auto) 8.5 x10^3/uL (1.8-7.7) Lymphocytes # (Auto) 2.5 x10^3/uL (1.0-4.8) Monocytes # (Auto) 0.9 x10^3/uL (0.0-1.1) Eosinophils # (Auto) 0.2 x10^3/uL (0.0-0.7) Basophils # (Auto) 0.1 x10^3/uL (0.0-0.2) Sodium Level 136 mmol/L (136-145) Potassium Level 3.7 mmol/L (3.5-5.1) Chloride Level 98 mmol/L (98-107) Carbon Dioxide Level 26 mmol/L (21-32) Anion Gap 12 (6-14) Blood Urea Nitrogen 17 mg/dL (8-26) Creatinine 1.4 mg/dL (0.7-1.3) Estimated GFR (Cockcroft-Gault) 55.6 Glucose Level 271 mg/dL (70-99) Calcium Level 8.9 mg/dL (8.5-10.1) Test 09/01/18 17:24 09/01/18 20:19 09/02/18 05:00 09/02/18 07:43 Glucose (Fingerstick) 240 mg/dL (70-99) 223 mg/dL (70-99) 262 mg/dL (70-99) White Blood Count 13.5 x10^3/uL (4.0-11.0) Red Blood Count 4.72 x10^6/uL (4.30-5.70) Hemoglobin 14.0 g/dL (13.0-17.5) Hematocrit 40.4 % (39.0-53.0) Mean Corpuscular Volume 86 fL (79-100) Mean Corpuscular Hemoglobin 30 pg (25-35) Mean Corpuscular Hemoglobin Concent 35 g/dL (31-37) Red Cell Distribution Width 13.3 % (11.5-14.5) Platelet Count 218 x10^3/uL (140-400) Neutrophils (%) (Auto) 84 % (31-73) Lymphocytes (%) (Auto) 9 % (24-48) Monocytes (%) (Auto) 6 % (0-9) Eosinophils (%) (Auto) 0 % (0-3) Basophils (%) (Auto) 1 % (0-3) Neutrophils # (Auto) 11.4 x10^3/uL (1.8-7.7) Lymphocytes # (Auto) 1.2 x10^3/uL (1.0-4.8) Monocytes # (Auto) 0.9 x10^3/uL (0.0-1.1) Eosinophils # (Auto) 0.0 x10^3/uL (0.0-0.7) Basophils # (Auto) 0.1 x10^3/uL (0.0-0.2) Sodium Level 138 mmol/L (136-145) Potassium Level 4.0 mmol/L (3.5-5.1) Chloride Level 102 mmol/L (98-107) Carbon Dioxide Level 27 mmol/L (21-32) Anion Gap 9 (6-14) Blood Urea Nitrogen 20 mg/dL (8-26) Creatinine 1.4 mg/dL (0.7-1.3) Estimated GFR (Cockcroft-Gault) 55.6 Glucose Level 244 mg/dL (70-99) Calcium Level 8.6 mg/dL (8.5-10.1) Phosphorus Level 3.9 mg/dL (2.6-4.7) Magnesium Level 2.0 mg/dL (1.8-2.4) Test 09/02/18 13:10 09/02/18 13:13 Erythrocyte Sedimentation Rate 53 (0-15) Glucose (Fingerstick) 260 mg/dL (70-99) Laboratory Tests Test 09/01/18 17:24 09/01/18 20:19 09/02/18 05:00 09/02/18 07:43 Glucose (Fingerstick) 240 mg/dL (70-99) 223 mg/dL (70-99) 262 mg/dL (70-99) White Blood Count 13.5 x10^3/uL (4.0-11.0) Red Blood Count 4.72 x10^6/uL (4.30-5.70) Hemoglobin 14.0 g/dL (13.0-17.5) Hematocrit 40.4 % (39.0-53.0) Mean Corpuscular Volume 86 fL (79-100) Mean Corpuscular Hemoglobin 30 pg (25-35) Mean Corpuscular Hemoglobin Concent 35 g/dL (31-37) Red Cell Distribution Width 13.3 % (11.5-14.5) Platelet Count 218 x10^3/uL (140-400) Neutrophils (%) (Auto) 84 % (31-73) Lymphocytes (%) (Auto) 9 % (24-48) Monocytes (%) (Auto) 6 % (0-9) Eosinophils (%) (Auto) 0 % (0-3) Basophils (%) (Auto) 1 % (0-3) Neutrophils # (Auto) 11.4 x10^3/uL (1.8-7.7) Lymphocytes # (Auto) 1.2 x10^3/uL (1.0-4.8) Monocytes # (Auto) 0.9 x10^3/uL (0.0-1.1) Eosinophils # (Auto) 0.0 x10^3/uL (0.0-0.7) Basophils # (Auto) 0.1 x10^3/uL (0.0-0.2) Sodium Level 138 mmol/L (136-145) Potassium Level 4.0 mmol/L (3.5-5.1) Chloride Level 102 mmol/L (98-107) Carbon Dioxide Level 27 mmol/L (21-32) Anion Gap 9 (6-14) Blood Urea Nitrogen 20 mg/dL (8-26) Creatinine 1.4 mg/dL (0.7-1.3) Estimated GFR (Cockcroft-Gault) 55.6 Glucose Level 244 mg/dL (70-99) Calcium Level 8.6 mg/dL (8.5-10.1) Phosphorus Level 3.9 mg/dL (2.6-4.7) Magnesium Level 2.0 mg/dL (1.8-2.4) Test 09/02/18 13:10 09/02/18 13:13 Erythrocyte Sedimentation Rate 53 (0-15) Glucose (Fingerstick) 260 mg/dL (70-99) Medications Current Medications Ondansetron HCl (Zofran) 4 mg PRN Q6HRS PRN IV NAUSEA/VOMITING; Start 09/01/18 at 07:00; Stop 09/01/18 at 21:00; Status DC Fentanyl Citrate (Fentanyl 2ml Vial) 25 mcg PRN Q5MIN PRN IV MILD PAIN 1-3; Start 09/01/18 at 07:00; Stop 09/01/18 at 21:00; Status DC Fentanyl Citrate (Fentanyl 2ml Vial) 50 mcg PRN Q5MIN PRN IV MODERATE TO SEVERE PAIN; Start 09/01/18 at 07:00; Stop 09/01/18 at 21:00; Status DC Morphine Sulfate (Morphine Sulfate) 1 mg PRN Q10MIN PRN IV SEVERE PAIN 7-10; Start 09/01/18 at 07:00; Stop 09/01/18 at 21:00; Status DC Ringer's Solution 1,000 ml @ 30 mls/hr Q24H IV Last administered on 09/01/18at 09:32; Start 09/01/18 at 07:00; Stop 09/01/18 at 18:59; Status DC Hydromorphone HCl (Dilaudid) 0.5 mg PRN Q10MIN PRN IV SEV PAIN, Second choice; Start 09/01/18 at 07:00; Stop 09/01/18 at 21:00; Status DC Prochlorperazine Edisylate (Compazine) 5 mg PACU PRN PRN IV NAUSEA, MRX1 Last administered on 09/01/18at 15:27; Start 09/01/18 at 07:00; Stop 09/01/18 at 21:00 ; Status DC Heparin Sodium (Porcine) 5000 unit/Sodium Chloride 505 ml @ 505 mls/hr 1X ONCE IRR Last administered on 09/01/18at 11:35; Start 09/01/18 at 06:00; Stop 09/01/18 at 06:59; Status DC Cefazolin Sodium 1 gm/Sodium Chloride 500 ml @ 500 mls/hr 1X ONCE IRR Last administered on 09/01/18at 11:35; Start 09/01/18 at 06:00; Stop 09/01/18 at 06:59; Status DC Cefazolin Sodium/ Dextrose 50 ml @ 100 mls/hr 1X PREOP PRN IV PRIOR TO PROCEDURE Last administered on 09/01/18at 11:00; Start 09/02/18 at 06:00; Stop 09/02/18 at 18:00 Insulin Human Lispro (HumaLOG VIAL for OP,RR ONLY) 0-10 units PRN Q1HR PRN SQ PER PROTOCOL Last administered on 09/01/18at 15:28; Start 09/01/18 at 09:15; Stop 09/01/18 at 21:00; Status DC Propofol 20 ml @ As Directed STK-MED ONCE IV ; Start 09/01/18 at 09:31; Stop 09/01/18 at 09:32; Status DC Lidocaine HCl (Lidocaine Pf 2% Vial) 5 ml STK-MED ONCE .ROUTE ; Start 09/01/18 at 09:31; Stop 09/01/18 at 09:32; Status DC Ondansetron HCl (Zofran) 4 mg STK-MED ONCE .ROUTE ; Start 09/01/18 at 09:31; Stop 09/01/18 at 09:32; Status DC Dexamethasone Sodium Phosphate (Decadron) 4 mg STK-MED ONCE .ROUTE ; Start 09/01/18 at 09:31; Stop 09/01/18 at 09:32; Status DC Rocuronium [place] (Zemuron) 50 mg STK-MED ONCE .ROUTE ; Start 09/01/18 at 09:31; Stop 09/01/18 at 09:32; Status DC Fentanyl Citrate (Fentanyl 2ml Vial) 100 mcg STK-MED ONCE .ROUTE ; Start 09/01/18 at 09:31; Stop 09/01/18 at 09:32; Status DC Midazolam HCl (Versed) 2 mg STK-MED ONCE .ROUTE ; Start 09/01/18 at 09:32; Stop 09/01/18 at 09:33; Status DC Gelatin (Gelfoam Dental Sponge Size 4) 1 each STK-MED ONCE .ROUTE ; Start 09/01/18 at 09:40; Stop 09/01/18 at 10:40; Status DC Iohexol (Omnipaque 300 Mg/ml) 50 ml STK-MED ONCE .ROUTE ; Start 09/01/18 at 09:40; Stop 09/01/18 at 10:40; Status DC Cellulose (Surgicel Fibrillar 1x2) 1 each STK-MED ONCE .ROUTE Last administered on 09/01/18at 14:37; Start 09/01/18 at 09:40; Stop 09/01/18 at 10:40; Status DC Papaverine HCl 60 mg STK-MED ONCE .ROUTE ; Start 09/01/18 at 09:40; Stop 09/01/18 at 10:40; Status DC Vancomycin HCl 1 gm/Sodium Chloride 250 ml @ 250 mls/hr 1X ONCE IV Last administered on 09/01/18at 11:30; Start 09/01/18 at 11:30; Stop 09/01/18 at 12:29; Status DC Heparin Sodium (Porcine) (Heparin Sodium) 10,000 unit STK-MED ONCE .ROUTE ; Start 09/01/18 at 11:26; Stop 09/01/18 at 11:27; Status DC Phenylephrine HCl (PHENYLEPHRINE in 0.9% NACL PF) 1 mg STK-MED ONCE IV ; Start 09/01/18 at 11:35; Stop 09/01/18 at 11:36; Status DC Fentanyl Citrate (Fentanyl 2ml Vial) 100 mcg STK-MED ONCE .ROUTE ; Start 09/01/18 at 12:30; Stop 09/01/18 at 12:31; Status DC Heparin Sodium (Porcine) 5000 unit/Sodium Chloride 505 ml @ 505 mls/hr 1X ONCE IRR Last administered on 09/01/18at 14:37; Start 09/01/18 at 14:00; Stop 09/01/18 at 14:59; Status DC Cefazolin Sodium 1 gm/Sodium Chloride 500 ml @ 500 mls/hr 1X ONCE IRR Last administered on 09/01/18at 14:36; Start 09/01/18 at 14:30; Stop 09/01/18 at 15:29; Status DC Cefazolin Sodium/ Dextrose 50 ml @ 100 mls/hr 1X ONCE IV Last administered on 09/01/18at 15:00; Start 09/01/18 at 15:00; Stop 09/01/18 at 15:29; Status DC Sevoflurane (Ultane) 90 ml STK-MED ONCE IH ; Start 09/01/18 at 14:45; Stop 09/01/18 at 14:46; Status DC Fentanyl Citrate (Fentanyl 2ml Vial) 100 mcg STK-MED ONCE .ROUTE ; Start 09/01/18 at 14:51; Stop 09/01/18 at 14:52; Status DC Ascorbic Acid (Vitamin C) 500 mg BID PO Last administered on 09/02/18at 08:19; Start 09/01/18 at 21:00 Multivitamins (Thera M Plus) 1 tab DAILY PO Last administered on 09/02/18at 08:18; Start 09/02/18 at 09:00 Lisinopril (Prinivil) 5 mg DAILY PO Last administered on 09/02/18at 08:20; Start 09/02/18 at 09:00 Prochlorperazine Edisylate (Compazine) 10 mg STK-MED ONCE .ROUTE ; Start 09/01/18 at 15:24; Stop 09/01/18 at 15:25; Status DC Aspirin (Ecotrin) 81 mg DAILYWBKFT PO Last administered on 09/02/18at 08:18; Start 09/01/18 at 17:00 Clopidogrel Bisulfate (Plavix) 75 mg DAILYWBKFT PO Last administered on 09/02/18at 08:19; Start 09/01/18 at 17:00 Oxycodone HCl (Roxicodone) 5 mg PRN Q3HRS PRN PO UNRELIEVED PAIN; Start 09/01/18 at 15:15 Info (Non-Icu Electrolyte Protocol) 1 ea PRN DAILY PRN MC SEE COMMENTS; Start 09/02/18 at 09:00 Naloxone HCl (Narcan) 0.1 mg PRN Q2MIN PRN IV ADMIN; Start 09/01/18 at 15:15 Sodium Chloride (Normal Saline Flush) 3 ml QSHIFT PRN IV AFTER MEDS AND BLOOD DRAWS; Start 09/01/18 at 15:15 Sodium Chloride 1,000 ml @ 100 mls/hr Q10H IV Last administered on 09/02/18at 04:02; Start 09/01/18 at 18:00 Oxycodone/ Acetaminophen (Percocet 5/325) 1 tab PRN Q4HRS PRN PO MILD PAIN, 1ST CHOICE Last administered on 09/02/18at 08:19; Start 09/01/18 at 15:15 Oxycodone/ Acetaminophen (Percocet 5/325) 2 tab PRN Q4HRS PRN PO MODERATE PAIN, SEVERE PAIN Last administered on 09/02/18at 02:14; Start 09/01/18 at 15:15 Acetaminophen (Tylenol) 650 mg Q8HRS PO Last administered on 09/01/18at 21:38; Start 09/01/18 at 22:00 Morphine Sulfate (Morphine Sulfate) 2 mg PRN Q1HR PRN IV PAIN Last administered on 09/02/18at 14:57; Start 09/01/18 at 15:15 Naloxone HCl (Narcan) 0.4 mg PRN Q2MIN PRN IV SEE INSTRUCTIONS; Start 09/01/18 at 15:15; Status UNV Sodium Chloride 1,000 ml @ 25 mls/hr Q24H IV ; Start 09/01/18 at 15:14; Status UNV Senna/Docusate Sodium (Senna Plus) 1 tab PRN BID PRN PO CONSTIPATION Last administered on 09/02/18 08:18; Start 09/01/18 at 15:15 Ondansetron HCl (Zofran) 4 mg PRN Q6HRS PRN IV NAUESA, 1ST CHOICE Last administered on 09/02/18at 11:49; Start 09/01/18 at 15:15 Prochlorperazine Edisylate (Compazine) 5 mg PRN Q6HRS PRN IV N/V, 2nd Choice, MR X1 Last administered on 09/02/18at 08:55; Start 09/01/18 at 15:15 Hydralazine HCl (Apresoline Inj) 5 mg PRN Q4HRS PRN IVP ELEVATED BP, 1st CHOICE; Start 09/01/18 at 15:15 Labetalol HCl (Normodyne Iv Push) 10 mg PRN Q2HR PRN IVP HYPERTENSION, 2nd CHOICE; Start 09/01/18 at 15:15 Piperacillin Sod/ Tazobactam Sod 3.375 gm/Sodium Chloride 50 ml @ 100 mls/hr Q6HRS IV Last administered on 09/02/18at 11:49; Start 09/01/18 at 18:00 Vancomycin HCl (Vanco Per Pharmacy) 1 each PRN DAILY PRN MC SEE COMMENTS Last administered on 09/01/18at 16:40; Start 09/01/18 at 15:15; Stop 09/02/18 at 08:59; Status DC Vancomycin HCl 2 gm/Sodium Chloride 500 ml @ 250 mls/hr Q12H IV Last administered on 09/02/18at 05:48; Start 09/01/18 at 18:00; Stop 09/02/18 at 08:59; Status DC Vancomycin HCl (Vancomycin Trough Level) 1 each 1X ONCE MC ; Start 09/03/18 at 05:30; Stop 09/03/18 at 05:31; Status Cancel Insulin Human Lispro (HumaLOG) 0-7 UNITS TIDWMEALS SQ Last administered on 09/02/18at 13:30; Start 09/02/18 at 08:00 Dextrose (Dextrose 50%-Water Syringe) 12.5 gm PRN Q15MIN PRN IV SEE COMMENTS; Start 09/01/18 at 17:45 Insulin Human Lispro (HumaLOG) 5 units 1X ONCE SQ Last administered on 09/01/18at 17:50; Start 09/01/18 at 18:00; Stop 09/01/18 at 18:01; Status DC Daptomycin 760 mg/ Sodium Chloride 50 ml @ 100 mls/hr Q24H IV Last administer ed on 09/02/18at 10:26; Start 09/02/18 at 10:00 Lactobacillus Rhamnosus (Culturelle) 1 cap BID PO ; Start 09/02/18 at 21:00 Ondansetron HCl (Zofran Odt) 4 mg Q4HRS PRN PO NAUSEA/VOMITING; Start 09/02/18 at 11:30 Lidocaine/Sodium Bicarbonate (Buffered Lidocaine 1%) 3 ml STK-MED ONCE .ROUTE ; Start 09/02/18 at 11:57; Stop 09/02/18 at 11:58; Status DC Lidocaine/Sodium Bicarbonate (Buffered Lidocaine 1%) 3 ml 1X ONCE IJ Last administered on 09/02/18at 12:15; Start 09/02/18 at 12:15; Stop 09/02/18 at 12:16; Status DC Lorazepam (Ativan Inj) 0.5 mg PRN Q6HRS PRN IV ANXIETY / AGITATION Last administered on 09/02/18at 13:23; Start 09/02/18 at 13:00 Active Scripts Active Lisinopril 5 Mg Tablet 1 Tab PO DAILY Doxycycline Hyclate 100 Mg Capsule 1 Cap PO BID Augmentin 875-125 Tablet (Amoxicillin/Potassium Clav) 1 Each Tablet 1 Tab PO BID Thera-M Tablet (Multivits,Ca,Minerals/Iron/Fa) 1 Each Tablet 1 Tab PO DAILY 30 Days Vitamin C (Ascorbic Acid) 500 Mg Tablet 500 Mg PO BID 30 Days Vitals/I & O Vital Sign - Last 24 Hours 09/01/18 09/01/18 09/01/18 09/01/18 17:19 17:30 17:45 18:15 Pulse 90 92 86 Resp 16 16 16 Pulse Ox 93 93 93 O2 Delivery Room Air Room Air Room Air Room Air 09/01/18 09/01/18 09/01/18 09/01/18 18:45 19:46 20:00 20:00 Temp 98.0 98.0 Pulse 87 88 80 Resp 16 18 B/P (MAP) 123/65 (84) 125/68 (87) Pulse Ox 93 94 O2 Delivery Room Air Room Air Room Air 09/01/18 09/01/18 09/01/18 09/02/18 21:00 21:37 23:28 02:14 Temp 98.1 98.1 Pulse 76 67 Resp 18 16 18 B/P (MAP) 140/70 (93) 140/74 (96) Pulse Ox 94 96 96 O2 Delivery Room Air Room Air Room Air 09/02/18 09/02/18 09/02/18 09/02/18 03:14 03:25 07:00 08:00 Temp 98.1 98.5 98.1 98.5 Pulse 72 80 Resp 18 16 16 B/P (MAP) 152/78 (102) 161/76 (104) Pulse Ox 96 95 93 O2 Delivery Room Air Room Air Room Air O2 Flow Rate 8.0 09/02/18 09/02/18 09/02/18 09/02/18 08:19 08:20 09:49 11:00 Temp 98.3 98.3 Pulse 80 76 Resp 16 18 16 B/P (MAP) 161/76 268/80 (142) Pulse Ox 97 O2 Delivery Room Air Room Air Room Air 09/02/18 09/02/18 14:57 15:00 Temp 98.0 98.0 Pulse 61 Resp 14 B/P (MAP) 137/71 (93) Pulse Ox 97 O2 Delivery Room Air Room Air Intake and Output 09/01/18 09/01/18 09/02/18 14:59 22:59 06:59 Intake Total 2110 ml 1780 ml Output Total 1075 ml 850 ml Balance 1035 ml 930 ml MORENA GIBSON MD Sep 02, 2018 17:18
--- NOTE | 2018-09-02 18:07 | CONS ---
DATE OF CONSULTATION: 09/02/2018 INFECTIOUS DISEASE CONSULTATION ROOM: 261. REQUESTING PHYSICIAN: Dr. Hooper. REASON FOR CONSULTATION: Osteomyelitis of the foot. HISTORY OF PRESENT ILLNESS: The patient is a 42-year-old gentleman with history of diabetes who states about 3 years ago he developed a callus on the side of his right foot, over the time it buildup crack and opened. [facility], had been on doxycycline and Augmentin for several weeks. He was admitted in July for the same issue, was found to have peripheral arterial disease and required bypass surgery; however, this was delayed secondary to his decisions. He has now been admitted on 09/01/2018, was taken to the operating room by Dr. Hooper, underwent a right common femoral artery to posterior tibial artery bypass graft using his right leg great saphenous vein. Also had a right lateral foot sharp excisional debridement removing necrotic skin, subcutaneous tissue, muscle, tendon and a portion of the fifth metatarsal bone. Debridement was 3.5 x 3.5 x 1.5 in depth. According to the operative note the bone was soft, consistent with osteomyelitis. He has not had any recent culture obtained. Currently, the patient is lying in bed. He is fairly comfortable, had a little bit of pain. Denies any fevers, chills or sweats. He is having some issues with constipation, no problems passing his urine. PAST MEDICAL HISTORY: Positive for diabetes, peripheral neuropathy, gastroesophageal reflux disease, hypertension, hyperlipidemia, chronic back pain, renal insufficiency, and peripheral arterial disease. History of perirectal abscess 2014. History of Strep gallolyticus. REVIEW OF SYSTEMS: Otherwise negative except for mentioned above. ALLERGIES: No known drug allergies. SOCIAL HISTORY: He is a smoker, no alcohol. FAMILY HISTORY: Noncontributory. CURRENT MEDICATIONS: Include vancomycin and Zosyn. He did receive some cefazolin, Ecotrin and Plavix. He did receive Decadron on as well, hydralazine, insulin, lisinopril, multivitamins, ondansetron, Compazine, and senna. PHYSICAL EXAMINATION: VITAL SIGNS: He is afebrile, temperature 98.5, pulse 80, respirations 16, blood pressure 161/76, satting 93% on room air. CONSTITUTIONAL: He is lying in bed. He is cooperative. He is in no acute distress. HEENT: Pupils equal and reactive. Normal conjunctivae. Oral cavity, pharynx is clear. NECK: Supple, no JVD. LUNGS: Clear to auscultation bilaterally. HEART: S1, S2. ABDOMEN: Soft, nontender, positive bowel sounds. EXTREMITIES: No clubbing, cyanosis. His right lower extremity has a bandage postop along the medial aspect of his leg also has a work boot in place. His right foot is bandaged and topical wound VAC in place. Other lower extremity is without signs of any gross edema. SKIN: Warm to touch without signs of rash. NEUROLOGIC: He is nonfocal and appropriate. Affect is appropriate. LABORATORY DATA: White count 13.5, hemoglobin 14, platelets 218, neutrophils 84, creatinine of 1.4, glucose of 144. Last cultures obtained on 07/23/2018 positive for a coag, negative Staph, MRSE. Cultures from 05/17/2018 also showing an MRSE. IMPRESSION: 1. Right foot osteomyelitis, status post incision and drainage 09/01/2018. 2. Peripheral arterial disease, status post bypass, right lower extremity 09/01/2018. 3. Leukocytosis, status post dexamethasone 09/01/2018. 4. Acute kidney injury, currently stable. 5. Diabetes. 6. Recent MRSE as mentioned above. 7. History of Strep gallolyticus. RECOMMENDATIONS: For now discontinue the vancomycin with acute kidney injury, dose daptomycin. Follow up creatinine in the morning. Obtain sed rate this morning. Continue Zosyn for now. Had been on doxycycline and Augmentin prior to admission. We will need a PICC line. We will need social work manager consultation and he will need a colonoscopy if not performed since 08/2014 with a history gallolyticus. Thank you for asking us to participate in this patient's care. If you have any questions, please do not hesitate to contact me. LUKE HANDLEY MD DR: ARLYN/clau JOB#: [id number] / [id number]
[2018-09-02 19:44] VITALS: BP 129/66
[2018-09-02] MEDS: LACTOBACILLUS RHAMNOSUS GG 1 CAPSULE. PO SCH (21:13)
[2018-09-02 22:24] VITALS: BP 114/77
[2018-09-03 03:13] VITALS: BP 94/54
[2018-09-03] MEDS: oxyCODONE/APAP 5/325 1 TAB TABLET PO PRN ×3 (03:25→18:05)
[2018-09-03 05:11] LABS: CALCIUM 8.4 mg/dL (8.5-10.1); CREATININE 1.2 mg/dL (0.7-1.3); GFR 66.4; POTASSIUM 3.4 mmol/L (3.5-5.1)
[2018-09-03] MEDS: PIPERACILLIN/TAZOBACTAM 3.375 GM in IV NORMAL SALINE 50ML 50 ML IV SCH ×4 (06:00→23:56)
[2018-09-03] MEDS: ACETAMINOPHEN 325 MG TABLET. PO SCH ×3 (06:00→22:19)
--- NOTE | 2018-09-03 06:53 | PDOC ---
Infectious Disease Note Subjective Subjective Has some pain today. Better after some Ativan No F/C/S/N/V but is not hungry No rash/cough ROS ROS o/w neg Vital Sign Vital Signs Vital Signs Date Time Temp Pulse Resp B/P (MAP) Pulse Ox O2 Delivery O2 Flow Rate FiO2 09/03/18 03:13 98.1 108 18 94/54 (67) Room Air 98.1 09/02/18 22:24 97 09/02/18 08:00 8.0 Physical Exam PHYSICAL EXAM CONSTITUTIONAL: He is lying in bed. He is cooperative. He is in no acute distress. HEENT: Pupils equal and reactive. Normal conjunctivae. Oral cavity, pharynx with some thrush NECK: Supple, no JVD. LUNGS: Clear to auscultation bilaterally. HEART: S1, S2. ABDOMEN: Soft, nontender, positive bowel sounds. EXTREMITIES: No clubbing, cyanosis. His right lower extremity has a bandage postop along the medial aspect of his leg also has a work boot in place. His right foot is bandaged and topical wound VAC in place. Other lower extremity is without signs of any gross edema. SKIN: Warm to touch without signs of rash. NEUROLOGIC: He is nonfocal and appropriate. Affect is appropriate. IV: PICC - RUE - is clean Labs Lab Laboratory Tests Test 09/02/18 07:43 09/02/18 10:00 09/02/18 13:10 09/02/18 13:13 Glucose (Fingerstick) 262 mg/dL (70-99) 260 mg/dL (70-99) Nasal Screen MRSA (PCR) Negative (Negative) Erythrocyte Sedimentation Rate 53 (0-15) Test 09/02/18 17:07 09/02/18 21:54 09/03/18 04:00 Glucose (Fingerstick) 255 mg/dL (70-99) 197 mg/dL (70-99) Sodium Level 139 mmol/L (136-145) Potassium Level 3.4 mmol/L (3.5-5.1) Chloride Level 102 mmol/L (98-107) Carbon Dioxide Level 28 mmol/L (21-32) Anion Gap 9 (6-14) Blood Urea Nitrogen 15 mg/dL (8-26) Creatinine 1.2 mg/dL (0.7-1.3) Estimated GFR (Cockcroft-Gault) 66.4 Glucose Level 204 mg/dL (70-99) Calcium Level 8.4 mg/dL (8.5-10.1) Objective Assessment Thrush - previous abx and steroids R foot osteomyelitis s/p I and D 09/01 h/o STCN PAD - s/p Bypass RLE 09/01 Leukocytosis - s/p Dexamethasone 09/01 RAVEN - some better DM Recent MRSE H/o Strep Gallolyticus Plan Plan of Care Myclex lion Discont Vanc with RAVEN and dosed Dapto 09/02 F/u Cr cont Zosyn for now - Had been on Doxy and augmentin prior to admit Needs Colonoscopy if not performed 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
[2018-09-03 07:17] VITALS: BP 134/77
[2018-09-03] MEDS: ASPIRIN ENTERIC COATED 81 MG TABLET.DR. PO SCH (08:00)
[2018-09-03] MEDS: INSULIN LISPRO 300 UNITS/3 ML INSULN.PEN. SQ SCH ×4 (08:00→22:27)
--- NOTE | 2018-09-03 08:10 | PDOC ---
TCOM NOTE Transcutaneous oximetry was performed on Mr. Varela's RLE on 09/02/18 utilizing a reference lead on the LLE. 100% Oxygen Challenge Lead placement RA 5 min 10 min Lead 1 Right dorsal lateral foot 18 mmHg 39 mmHg 38 mmHg Lead 2 Right dorsal medial foot 12 20 21 Lead 3 Right lateral midfoot 30 76 87 Lead 4 Right lateral distal leg 21 41 44 Lead 5 Right anterior distal leg 30 74 83 Lead 6 Reference: left medial ankle 40 68 74 pO2 of < 20 mmHg predicts likely failure to heal pO2 of 20-40 mmHg is asociated with delayed healing Oxygen challenge of > 100 mmHg predicts a positive response to HBO therapy. There are some patients who benefit from HBO tx even with oxygen challenge results of < 100 mmHg so it is reasonable to perform a trial of 10-15 HBO treatments in these pts for whom the alternative is amputation. Mr. 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 However, in the light of his vascular intervention on 09/01/18 it is recommended to continue care of this wound. Full benefit of revasculariztion takes time to be realized. I think a trial of HBO would be appropriate to maximize his chances of healing this wound. MECHELLE MCKEON MD Sep 03, 2018 08:10
--- NOTE | 2018-09-03 08:24 | NUR ---
RN NOTE patient wants to wait until he can have his ativan to take his medications will continue to monitor
--- NOTE | 2018-09-03 08:50 | PDOC ---
PROGRESS NOTES Subjective Subjective Patient seen and examined in room. Patient complains of right lower extremity pain, incisional and overall "leg tightness". Continues to complain of nausea, vomiting and constipation. Tolerating a small amount of liquids. Indwelling urinary catheter is been removed and patient is voiding without difficulty. Objective Objective Vital Signs Date Time Temp Pulse Resp B/P (MAP) Pulse Ox O2 Delivery O2 Flow Rate FiO2 09/03/18 07:17 97.7 97 15 134/77 (96) 97 Room Air 97.7 09/02/18 08:00 8.0 Intake and Output 09/03/18 07:00 Intake Total 1220 ml Output Total 1550 ml Balance -330 ml Intake Oral 1220 ml Output Urine Total 1550 ml # Voids 1 Physical Exam Abdomen: Soft Heart: Regular rate General: Alert, Oriented X3, Cooperative Lungs: Normal air movement Skin: Other (Incisions all dry and intact, Prevena vac in place and functioning in groin, wound vac in place right lateral foot, foot is ruborous, warm. Doppler PT and DP pulses. Palpable graft pulse at the knee. ) Assessment Assessment 1. Right lower extremity severe peripheral arterial disease with a nonhealing lateral foot open wound with necrotic tissue and exposed bone. POD #2 Right common femoral artery to posterior tibial artery bypass graft using his right leg great saphenous vein in the nonreversed fashion. Right lateral foot sharp excisional debridement removing necrotic skin, subcutaneous tissue, muscle, tendon, and a portion of the fifth metatarsal bone. 2. Diabetes. 3. Hyperlipidemia. 4. Nausea, Vomiting, Constipation. 5. Thrush Plan Plan of Care Plan Plan of Care 1. Activity as tolerated, with right heel touch only, continue PT. If patient is unable to manage heel touch will need full non-weight bearing. 2. Wound team continue to manage wound vac therapy right foot wound. TCOM performed, recommend HBO, patient refusing at this time, appreciate Wound Care Team input. 3. Saline lock and discontinue IV fluids when nausea and vomiting subsides. Will add additional meds for constipation. 4. Aggressive diabetes management, patient with hx of noncompliance, management per IM. 5. Daily Aspirin and Plavix, prescription for Plavix on chart will need to c ontinue for at least 90 days for maintenance of bypass graft. 6. SS consult, patient will need home vac, antibiotics, and financial assistance with medications. PICC line in place right arm. Antibiotics per ID. 7. Hyperlipidemia-elevated last admission, recommend statin therapy, management per IM. 8. Albumin 3.0 last visit, nutritional consult. Follow up appointment 09/16/[address] Rufus Turk Labs Laboratory Tests Test 09/01/18 08:49 09/01/18 09:25 09/01/18 10:49 09/01/18 15:20 Glucose (Fingerstick) 254 mg/dL (70-99) 218 mg/dL (70-99) 268 mg/dL (70-99) White Blood Count 12.2 x10^3/uL (4.0-11.0) Red Blood Count 5.05 x10^6/uL (4.30-5.70) Hemoglobin 14.9 g/dL (13.0-17.5) Hematocrit 42.7 % (39.0-53.0) Mean Corpuscular Volume 84 fL (79-100) Mean Corpuscular Hemoglobin 29 pg (25-35) Mean Corpuscular Hemoglobin Concent 35 g/dL (31-37) Red Cell Distribution Width 13.2 % (11.5-14.5) Platelet Count 271 x10^3/uL (140-400) Neutrophils (%) (Auto) 70 % (31-73) Lymphocytes (%) (Auto) 21 % (24-48) Monocytes (%) (Auto) 7 % (0-9) Eosinophils (%) (Auto) 1 % (0-3) Basophils (%) (Auto) 1 % (0-3) Neutrophils # (Auto) 8.5 x10^3/uL (1.8-7.7) Lymphocytes # (Auto) 2.5 x10^3/uL (1.0-4.8) Monocytes # (Auto) 0.9 x10^3/uL (0.0-1.1) Eosinophils # (Auto) 0.2 x10^3/uL (0.0-0.7) Basophils # (Auto) 0.1 x10^3/uL (0.0-0.2) Sodium Level 136 mmol/L (136-145) Potassium Level 3.7 mmol/L (3.5-5.1) Chloride Level 98 mmol/L (98-107) Carbon Dioxide Level 26 mmol/L (21-32) Anion Gap 12 (6-14) Blood Urea Nitrogen 17 mg/dL (8-26) Creatinine 1.4 mg/dL (0.7-1.3) Estimated GFR (Cockcroft-Gault) 55.6 Glucose Level 271 mg/dL (70-99) Calcium Level 8.9 mg/dL (8.5-10.1) Test 09/01/18 17:24 09/01/18 20:19 09/02/18 05:00 09/02/18 07:43 Glucose (Fingerstick) 240 mg/dL (70-99) 223 mg/dL (70-99) 262 mg/dL (70-99) White Blood Count 13.5 x10^3/uL (4.0-11.0) Red Blood Count 4.72 x10^6/uL (4.30-5.70) Hemoglobin 14.0 g/dL (13.0-17.5) Hematocrit 40.4 % (39.0-53.0) Mean Corpuscular Volume 86 fL (79-100) Mean Corpuscular Hemoglobin 30 pg (25-35) Mean Corpuscular Hemoglobin Concent 35 g/dL (31-37) Red Cell Distribution Width 13.3 % (11.5-14.5) Platelet Count 218 x10^3/uL (140-400) Neutrophils (%) (Auto) 84 % (31-73) Lymphocytes (%) (Auto) 9 % (24-48) Monocytes (%) (Auto) 6 % (0-9) Eosinophils (%) (Auto) 0 % (0-3) Basophils (%) (Auto) 1 % (0-3) Neutrophils # (Auto) 11.4 x10^3/uL (1.8-7.7) Lymphocytes # (Auto) 1.2 x10^3/uL (1.0-4.8) Monocytes # (Auto) 0.9 x10^3/uL (0.0-1.1) Eosinophils # (Auto) 0.0 x10^3/uL (0.0-0.7) Basophils # (Auto) 0.1 x10^3/uL (0.0-0.2) Sodium Level 138 mmol/L (136-145) Potassium Level 4.0 mmol/L (3.5-5.1) Chloride Level 102 mmol/L (98-107) Carbon Dioxide Level 27 mmol/L (21-32) Anion Gap 9 (6-14) Blood Urea Nitrogen 20 mg/dL (8-26) Creatinine 1.4 mg/dL (0.7-1.3) Estimated GFR (Cockcroft-Gault) 55.6 Glucose Level 244 mg/dL (70-99) Calcium Level 8.6 mg/dL (8.5-10.1) Phosphorus Level 3.9 mg/dL (2.6-4.7) Magnesium Level 2.0 mg/dL (1.8-2.4) Test 09/02/18 10:00 09/02/18 13:10 09/02/18 13:13 09/02/18 17:07 Nasal Screen MRSA (PCR) Negative (Negative) Erythrocyte Sedimentation Rate 53 (0-15) Glucose (Fingerstick) 260 mg/dL (70-99) 255 mg/dL (70-99) Test 09/02/18 21:54 09/03/18 04:00 09/03/18 07:44 Glucose (Fingerstick) 197 mg/dL (70-99) 198 mg/dL (70-99) Sodium Level 139 mmol/L (136-145) Potassium Level 3.4 mmol/L (3.5-5.1) Chloride Level 102 mmol/L (98-107) Carbon Dioxide Level 28 mmol/L (21-32) Anion Gap 9 (6-14) Blood Urea Nitrogen 15 mg/dL (8-26) Creatinine 1.2 mg/dL (0.7-1.3) Estimated GFR (Cockcroft-Gault) 66.4 Glucose Level 204 mg/dL (70-99) Calcium Level 8.4 mg/dL (8.5-10.1) Laboratory Tests Test 09/02/18 10:00 09/02/18 13:10 09/02/18 13:13 09/02/18 17:07 Nasal Screen MRSA (PCR) Negative (Negative) Erythrocyte Sedimentation Rate 53 (0-15) Glucose (Fingerstick) 260 mg/dL (70-99) 255 mg/dL (70-99) Test 09/02/18 21:54 09/03/18 04:00 09/03/18 07:44 Glucose (Fingerstick) 197 mg/dL (70-99) 198 mg/dL (70-99) Sodium Level 139 mmol/L (136-145) Potassium Level 3.4 mmol/L (3.5-5.1) Chloride Level 102 mmol/L (98-107) Carbon Dioxide Level 28 mmol/L (21-32) Anion Gap 9 (6-14) Blood Urea Nitrogen 15 mg/dL (8-26) Creatinine 1.2 mg/dL (0.7-1.3) Estimated GFR (Cockcroft-Gault) 66.4 Glucose Level 204 mg/dL (70-99) Calcium Level 8.4 mg/dL (8.5-10.1) Vitals/I & O NNAMDI TAY [employer] Sep 03, 2018 08:50
[2018-09-03] MEDS: ASCORBIC ACID 500 MG TABLET PO SCH ×2 (09:00→22:19)
[2018-09-03] MEDS: MULTIVITAMIN with MINERAL TABLET. PO SCH (09:00)
[2018-09-03] MEDS: LISINOPRIL 5 MG TABLET. PO SCH (09:00)
[2018-09-03] MEDS: LACTOBACILLUS RHAMNOSUS GG 1 CAPSULE. PO SCH ×2 (09:00→22:18)
--- NOTE | 2018-09-03 09:15 | PDOC ---
PROGRESS NOTES Subjective Subjective Patient c/o Nausea and productive cough. Objective Objective Vital Signs Date Time Temp Pulse Resp B/P (MAP) Pulse Ox O2 Delivery O2 Flow Rate FiO2 09/03/18 07:17 97.7 97 15 134/77 (96) 97 Room Air 97.7 09/02/18 08:00 8.0 Intake and Output 09/03/18 07:00 Intake Total 1220 ml Output Total 1550 ml Balance -330 ml Intake Oral 1220 ml Output Urine Total 1550 ml # Voids 1 Physical Exam Abdomen: Normal bowel sounds Heart: Regular rate Extremities: Other (Healing incision right leg 1+ edema) General: Alert Lungs: Clear to auscultation Assessment Assessment Severe peripheral artery disease status post revascularization of right lower extremity postop day 2. Type 2 diabetes high noncompliant. Diabetic gastroparesis. HLD Depression Plan Plan of Care Start Lantus Increase SS insulin Add Lipitor Continue wound care & PT/OT Continue IV antix Await social service input on Rehab vs. SNU vs. Home with Home Health Comment Review of Relevant I have reviewed the following items jo (where applicable) has been applied. Labs Laboratory Tests Test 09/01/18 09:25 09/01/18 10:49 09/01/18 15:20 09/01/18 17:24 White Blood Count 12.2 x10^3/uL (4.0-11.0) Red Blood Count 5.05 x10^6/uL (4.30-5.70) Hemoglobin 14.9 g/dL (13.0-17.5) Hematocrit 42.7 % (39.0-53.0) Mean Corpuscular Volume 84 fL (79-100) Mean Corpuscular Hemoglobin 29 pg (25-35) Mean Corpuscular Hemoglobin Concent 35 g/dL (31-37) Red Cell Distribution Width 13.2 % (11.5-14.5) Platelet Count 271 x10^3/uL (140-400) Neutrophils (%) (Auto) 70 % (31-73) Lymphocytes (%) (Auto) 21 % (24-48) Monocytes (%) (Auto) 7 % (0-9) Eosinophils (%) (Auto) 1 % (0-3) Basophils (%) (Auto) 1 % (0-3) Neutrophils # (Auto) 8.5 x10^3/uL (1.8-7.7) Lymphocytes # (Auto) 2.5 x10^3/uL (1.0-4.8) Monocytes # (Auto) 0.9 x10^3/uL (0.0-1.1) Eosinophils # (Auto) 0.2 x10^3/uL (0.0-0.7) Basophils # (Auto) 0.1 x10^3/uL (0.0-0.2) Sodium Level 136 mmol/L (136-145) Potassium Level 3.7 mmol/L (3.5-5.1) Chloride Level 98 mmol/L (98-107) Carbon Dioxide Level 26 mmol/L (21-32) Anion Gap 12 (6-14) Blood Urea Nitrogen 17 mg/dL (8-26) Creatinine 1.4 mg/dL (0.7-1.3) Estimated GFR (Cockcroft-Gault) 55.6 Glucose Level 271 mg/dL (70-99) Calcium Level 8.9 mg/dL (8.5-10.1) Glucose (Fingerstick) 218 mg/dL (70-99) 268 mg/dL (70-99) 240 mg/dL (70-99) Test 09/01/18 20:19 09/02/18 05:00 09/02/18 07:43 09/02/18 10:00 Glucose (Fingerstick) 223 mg/dL (70-99) 262 mg/dL (70-99) White Blood Count 13.5 x10^3/uL (4.0-11.0) Red Blood Count 4.72 x10^6/uL (4.30-5.70) Hemoglobin 14.0 g/dL (13.0-17.5) Hematocrit 40.4 % (39.0-53.0) Mean Corpuscular Volume 86 fL (79-100) Mean Corpuscular Hemoglobin 30 pg (25-35) Mean Corpuscular Hemoglobin Concent 35 g/dL (31-37) Red Cell Distribution Width 13.3 % (11.5-14.5) Platelet Count 218 x10^3/uL (140-400) Neutrophils (%) (Auto) 84 % (31-73) Lymphocytes (%) (Auto) 9 % (24-48) Monocytes (%) (Auto) 6 % (0-9) Eosinophils (%) (Auto) 0 % (0-3) Basophils (%) (Auto) 1 % (0-3) Neutrophils # (Auto) 11.4 x10^3/uL (1.8-7.7) Lymphocytes # (Auto) 1.2 x10^3/uL (1.0-4.8) Monocytes # (Auto) 0.9 x10^3/uL (0.0-1.1) Eosinophils # (Auto) 0.0 x10^3/uL (0.0-0.7) Basophils # (Auto) 0.1 x10^3/uL (0.0-0.2) Sodium Level 138 mmol/L (136-145) Potassium Level 4.0 mmol/L (3.5-5.1) Chloride Level 102 mmol/L (98-107) Carbon Dioxide Level 27 mmol/L (21-32) Anion Gap 9 (6-14) Blood Urea Nitrogen 20 mg/dL (8-26) Creatinine 1.4 mg/dL (0.7-1.3) Estimated GFR (Cockcroft-Gault) 55.6 Glucose Level 244 mg/dL (70-99) Calcium Level 8.6 mg/dL (8.5-10.1) Phosphorus Level 3.9 mg/dL (2.6-4.7) Magnesium Level 2.0 mg/dL (1.8-2.4) Nasal Screen MRSA (PCR) Negative (Negative) Test 09/02/18 13:10 09/02/18 13:13 09/02/18 17:07 09/02/18 21:54 Erythrocyte Sedimentation Rate 53 (0-15) Glucose (Fingerstick) 260 mg/dL (70-99) 255 mg/dL (70-99) 197 mg/dL (70-99) Test 09/03/18 04:00 09/03/18 07:44 Sodium Level 139 mmol/L (136-145) Potassium Level 3.4 mmol/L (3.5-5.1) Chloride Level 102 mmol/L (98-107) Carbon Dioxide Level 28 mmol/L (21-32) Anion Gap 9 (6-14) Blood Urea Nitrogen 15 mg/dL (8-26) Creatinine 1.2 mg/dL (0.7-1.3) Estimated GFR (Cockcroft-Gault) 66.4 Glucose Level 204 mg/dL (70-99) Calcium Level 8.4 mg/dL (8.5-10.1) Glucose (Fingerstick) 198 mg/dL (70-99) Laboratory Tests Test 09/02/18 10:00 09/02/18 13:10 09/02/18 13:13 09/02/18 17:07 Nasal Screen MRSA (PCR) Negative (Negative) Erythrocyte Sedimentation Rate 53 (0-15) Glucose (Fingerstick) 260 mg/dL (70-99) 255 mg/dL (70-99) Test 09/02/18 21:54 09/03/18 04:00 09/03/18 07:44 Glucose (Fingerstick) 197 mg/dL (70-99) 198 mg/dL (70-99) Sodium Level 139 mmol/L (136-145) Potassium Level 3.4 mmol/L (3.5-5.1) Chloride Level 102 mmol/L (98-107) Carbon Dioxide Level 28 mmol/L (21-32) Anion Gap 9 (6-14) Blood Urea Nitrogen 15 mg/dL (8-26) Creatinine 1.2 mg/dL (0.7-1.3) Estimated GFR (Cockcroft-Gault) 66.4 Glucose Level 204 mg/dL (70-99) Calcium Level 8.4 mg/dL (8.5-10.1) Medications Current Medications Ondansetron HCl (Zofran) 4 mg PRN Q6HRS PRN IV NAUSEA/VOMITING; Start 09/01/18 at 07:00; Stop 09/01/18 at 21:00; Status DC Fentanyl Citrate (Fentanyl 2ml Vial) 25 mcg PRN Q5MIN PRN IV MILD PAIN 1-3; Start 09/01/18 at 07:00; Stop 09/01/18 at 21:00; Status DC Fentanyl Citrate (Fentanyl 2ml Vial) 50 mcg PRN Q5MIN PRN IV MODERATE TO SEVERE PAIN; Start 09/01/18 at 07:00; Stop 09/01/18 at 21:00; Status DC Morphine Sulfate (Morphine Sulfate) 1 mg PRN Q10MIN PRN IV SEVERE PAIN 7-10; Start 09/01/18 at 07:00; Stop 09/01/18 at 21:00; Status DC Ringer's Solution 1,000 ml @ 30 mls/hr Q24H IV Last administered on 09/01/18at 09:32; Start 09/01/18 at 07:00; Stop 09/01/18 at 18:59; Status DC Hydromorphone HCl (Dilaudid) 0.5 mg PRN Q10MIN PRN IV SEV PAIN, Second choice; Start 09/01/18 at 07:00; Stop 09/01/18 at 21:00; Status DC Prochlorperazine Edisylate (Compazine) 5 mg PACU PRN PRN IV NAUSEA, MRX1 Last administered on 09/01/18at 15:27; Start 09/01/18 at 07:00; Stop 09/01/18 at 21:00; Status DC Heparin Sodium (Porcine) 5000 unit/Sodium Chloride 505 ml @ 505 mls/hr 1X ONCE IRR Last administered on 09/01/18at 11:35; Start 09/01/18 at 06:00; Stop 09/01/18 at 06:59; Status DC Cefazolin Sodium 1 gm/Sodium Chloride 500 ml @ 500 mls/hr 1X ONCE IRR Last administered on 09/01/18at 11:35; Start 09/01/18 at 06:00; Stop 09/01/18 at 06:59; Status DC Cefazolin Sodium/ Dextrose 50 ml @ 100 mls/hr 1X PREOP PRN IV PRIOR TO PROCEDURE Last administered on 09/01/18at 11:00; Start 09/02/18 at 06:00; Stop 09/02/18 at 18:00; Status DC Insulin Human Lispro (HumaLOG VIAL for OP,RR ONLY) 0-10 units PRN Q1HR PRN SQ PER PROTOCOL Last administered on 09/01/18at 15:28; Start 09/01/18 at 09:15; Stop 09/01/18 at 21:00; Status DC Propofol 20 ml @ As Directed STK-MED ONCE IV ; Start 09/01/18 at 09:31; Stop at 09:32; Status DC Lidocaine HCl (Lidocaine Pf 2% Vial) 5 ml STK-MED ONCE .ROUTE ; Start 09/01/18 at 09:31; Stop 09/01/18 at 09:32; Status DC Ondansetron HCl (Zofran) 4 mg STK-MED ONCE .ROUTE ; Start 09/01/18 at 09:31; Stop 09/01/18 at 09:32; Status DC Dexamethasone Sodium Phosphate (Decadron) 4 mg STK-MED ONCE .ROUTE ; Start 09/01/18 at 09:31; Stop 09/01/18 at 09:32; Status DC Rocuronium [place] (Zemuron) 50 mg STK-MED ONCE .ROUTE ; Start 09/01/18 at 09:31; Stop 09/01/18 at 09:32; Status DC Fentanyl Citrate (Fentanyl 2ml Vial) 100 mcg STK-MED ONCE .ROUTE ; Start 09/01/18 at 09:31; Stop 09/01/18 at 09:32; Status DC Midazolam HCl (Versed) 2 mg STK-MED ONCE .ROUTE ; Start 09/01/18 at 09:32; Stop 09/01/18 at 09:33; Status DC Gelatin (Gelfoam Dental Sponge Size 4) 1 each STK-MED ONCE .ROUTE ; Start 09/01/18 at 09:40; Stop 09/01/18 at 10:40; Status DC Iohexol (Omnipaque 300 Mg/ml) 50 ml STK-MED ONCE .ROUTE ; Start 09/01/18 at 09:40; Stop 09/01/18 at 10:40; Status DC Cellulose (Surgicel Fibrillar 1x2) 1 each STK-MED ONCE .ROUTE Last administered on 09/01/18at 14:37; Start 09/01/18 at 09:40; Stop 09/01/18 at 10:40; Status DC Papaverine HCl 60 mg STK-MED ONCE .ROUTE ; Start 09/01/18 at 09:40; Stop 09/01/18 at 10:40; Status DC Vancomycin HCl 1 gm/Sodium Chloride 250 ml @ 250 mls/hr 1X ONCE IV Last administered on 09/01/18at 11:30; Start 09/01/18 at 11:30; Stop 09/01/18 at 12 :29; Status DC Heparin Sodium (Porcine) (Heparin Sodium) 10,000 unit STK-MED ONCE .ROUTE ; Start 09/01/18 at 11:26; Stop 09/01/18 at 11:27; Status DC Phenylephrine HCl (PHENYLEPHRINE in 0.9% NACL PF) 1 mg STK-MED ONCE IV ; Start 09/01/18 at 11:35; Stop 09/01/18 at 11:36; Status DC Fentanyl Citrate (Fentanyl 2ml Vial) 100 mcg STK-MED ONCE .ROUTE ; Start 09/01/18 at 12:30; Stop 09/01/18 at 12:31; Status DC Heparin Sodium (Porcine) 5000 unit/Sodium Chloride 505 ml @ 505 mls/hr 1X ONCE IRR Last administered on 09/01/18at 14:37; Start 09/01/18 at 14:00; Stop 09/01/18 at 14:59; Status DC Cefazolin Sodium 1 gm/Sodium Chloride 500 ml @ 500 mls/hr 1X ONCE IRR Last administered on 09/01/18at 14:36; Start 09/01/18 at 14:30; Stop 09/01/18 at 15:29; Status DC Cefazolin Sodium/ Dextrose 50 ml @ 100 mls/hr 1X ONCE IV Last administered on 09/01/18at 15:00; Start 09/01/18 at 15:00; Stop 09/01/18 at 15:29; Status DC Sevoflurane (Ultane) 90 ml STK-MED ONCE IH ; Start 09/01/18 at 14:45; Stop 09/01/18 at 14:46; Status DC Fentanyl Citrate (Fentanyl 2ml Vial) 100 mcg STK-MED ONCE .ROUTE ; Start 09/01/18 at 14:51; Stop 09/01/18 at 14:52; Status DC Ascorbic Acid (Vitamin C) 500 mg BID PO Last administered on 09/02/18at 21:13; Start 09/01/18 at 21:00 Multivitamins (Thera M Plus) 1 tab DAILY PO Last administered on 09/02/18at 08:18; Start 09/02/18 at 09:00 Lisinopril (Prinivil) 5 mg DAILY PO Last administered on 09/02/18at 08:20; Start 09/02/18 at 09:00 Prochlorperazine Edisylate (Compazine) 10 mg STK-MED ONCE .ROUTE ; Start 09/01/18 at 15:24; Stop 09/01/18 at 15:25; Status DC Aspirin (Ecotrin) 81 mg DAILYWBKFT PO Last administered on 09/02/18at 08:18; Start 09/01/18 at 17:00 Clopidogrel Bisulfate (Plavix) 75 mg DAILYWBKFT PO Last administered on 09/02/18at 08:19; Start 09/01/18 at 17:00 Oxycodone HCl (Roxicodone) 5 mg PRN Q3HRS PRN PO UNRELIEVED PAIN; Start 09/01/18 at 15:15 Info (Non-Icu Electrolyte Protocol) 1 ea PRN DAILY PRN MC SEE COMMENTS; Start 09/02/18 at 09:00 Naloxone HCl (Narcan) 0.1 mg PRN Q2MIN PRN IV ADMIN; Start 09/01/18 at 15:15 Sodium Chloride (Normal Saline Flush) 3 ml QSHIFT PRN IV AFTER MEDS AND BLOOD DRAWS; Start 09/01/18 at 15:15 Sodium Chloride 1,000 ml @ 100 mls/hr Q10H IV Last administered on 09/02/18at 23:49; Start 09/01/18 at 18:00 Oxycodone/ Acetaminophen (Percocet 5/325) 1 tab PRN Q4HRS PRN PO MILD PAIN, 1ST CHOICE Last administered on 09/03/18at 03:25; Start 09/01/18 at 15:15 Oxycodone/ Acetaminophen (Percocet 5/325) 2 tab PRN Q4HRS PRN PO MODERATE PAIN, SEVERE PAIN Last administered on 09/02/18at 02:14; Start 09/01/18 at 15:15 Acetaminophen (Tylenol) 650 mg Q8HRS PO Last administered on 09/01/18at 21:38; Start 09/01/18 at 22:00 Morphine Sulfate (Morphine Sulfate) 2 mg PRN Q1HR PRN IV PAIN Last administered on 09/02/18at 17:58; Start 09/01/18 at 15:15 Naloxone HCl (Narcan) 0.4 mg PRN Q2MIN PRN IV SEE INSTRUCTIONS; Start 09/01/18 at 15:15; Status UNV Sodium Chloride 1,000 ml @ 25 mls/hr Q24H IV ; Start 09/01/18 at 15:14; Status UNV Senna/Docusate Sodium (Senna Plus) 1 tab PRN BID PRN PO CONSTIPATION Last administered on 09/02/18at 08:18; Start 09/01/18 at 15:15 Ondansetron HCl (Zofran) 4 mg PRN Q6HRS PRN IV NAUESA, 1ST CHOICE Last administered on 09/02/18at 11:49; Start 09/01/18 at 15:15 Prochlorperazine Edisylate (Compazine) 5 mg PRN Q6HRS PRN IV N/V, 2nd Choice, MR X1 Last administered on 09/02/18at 08:55; Start 09/01/18 at 15:15 Hydralazine HCl (Apresoline Inj) 5 mg PRN Q4HRS PRN IVP ELEVATED BP, 1st CHOICE; Start 09/01/18 at 15:15 Labetalol HCl (Normodyne Iv Push) 10 mg PRN Q2HR PRN IVP HYPERTENSION, 2nd CHOICE; Start 09/01/18 at 15:15 Piperacillin Sod/ Tazobactam Sod 3.375 gm/Sodium Chloride 50 ml @ 100 mls/hr Q6HRS IV Last administered on 09/03/18at 06:00; Start 09/01/18 at 18:00 Vancomycin HCl (Vanco Per Pharmacy) 1 each PRN DAILY PRN MC SEE COMMENTS Last administered on 09/01/18at 16:40; Start 09/01/18 at 15:15; Stop 09/02/18 at 08:59; Status DC Vancomycin HCl 2 gm/Sodium Chloride 500 ml @ 250 mls/hr Q12H IV Last administered on 09/02/18at 05:48; Start 09/01/18 at 18:00; Stop 09/02/18 at 08:59; Status DC Vancomycin HCl (Vancomycin Trough Level) 1 each 1X ONCE MC ; Start 09/03/18 at 05:30; Stop 09/03/18 at 05:31; Status Cancel Insulin Human Lispro (HumaLOG) 0-7 UNITS TIDWMEALS SQ Last administered on 09/02/18at 18:06; Start 09/02/18 at 08:00 Dextrose (Dextrose 50%-Water Syringe) 12.5 gm PRN Q15MIN PRN IV SEE COMMENTS; Start 09/01/18 at 17:45 Insulin Human Lispro (HumaLOG) 5 units 1X ONCE SQ Last administered on 09/01/18at 17:50; Start 09/01/18 at 18:00; Stop 09/01/18 at 18:01; Status DC Daptomycin 760 mg/ Sodium Chloride 50 ml @ 100 mls/hr Q24H IV Last administered on 09/02/18at 10:26; Start 09/02/18 at 10:00 Lactobacillus Rhamnosus (Culturelle) 1 cap BID PO Last administered on 09/02/18at 21:13; Start 09/02/18 at 21:00 Ondansetron HCl (Zofran Odt) 4 mg Q4HRS PRN PO NAUSEA/VOMITING; Start 09/02/18 at 11:30 Lidocaine/Sodium Bicarbonate (Buffered Lidocaine 1%) 3 ml STK-MED ONCE .ROUTE ; Start 09/02/18 at 11:57; Stop 09/02/18 at 11:58; Status DC Lidocaine/Sodium Bicarbonate (Buffered Lidocaine 1%) 3 ml 1X ONCE IJ Last administered on 09/02/18at 12:15; Start 09/02/18 at 12:15; Stop 09/02/18 at 12:16; Status DC Lorazepam (Ativan Inj) 0.5 mg PRN Q6HRS PRN IV ANXIETY / AGITATION Last administered on 09/03/18at 03:58; Start 09/02/18 at 13:00 Clotrimazole (Mycelex) 10 mg 5XDAY MM ; Start 09/03/18 at 10:00 Active Scripts Active Lisinopril 5 Mg Tablet 1 Tab PO DAILY Doxycycline Hyclate 100 Mg Capsule 1 Cap PO BID Augmentin 875-125 Tablet (Amoxicillin/Potassium Clav) 1 Each Tablet 1 Tab PO BID Thera-M Tablet (Multivits,Ca,Minerals/Iron/Fa) 1 Each Tablet 1 Tab PO DAILY 30 Days Vitamin C (Ascorbic Acid) 500 Mg Tablet 500 Mg PO BID 30 Days Vitals/I & O Vital Sign - Last 24 Hours 09/02/18 09/02/18 09/02/18 09/02/18 09:49 11:00 14:57 15:00 Temp 98.3 98.0 98.3 98.0 Pulse 76 61 Resp 18 16 14 B/P (MAP) 268/80 (142) 137/71 (93) Pulse Ox 97 97 O2 Delivery Room Air Room Air Room Air Room Air 09/02/18 09/02/18 09/02/1818/19 17:58 19:44 20:00 22:24 Temp 98.1 98.0 98.1 98.0 Pulse 85 77 Resp 16 16 16 B/P (MAP) 129/66 (87) 114/77 (89) Pulse Ox 98 97 O2 Delivery Room Air Room Air Room Air Room Air 09/03/18 09/03/18 03:13 07:17 Temp 98.1 97.7 98.1 97.7 Pulse 108 97 Resp 18 15 B/P (MAP) 94/54 (67) 134/77 (96) Pulse Ox 97 O2 Delivery Room Air Room Air Intake and Output 09/02/18 09/02/18 09/03/18 15:00 23:00 07:00 Intake Total 420 ml 800 ml Output Total 500 ml 350 ml 700 ml Balance -500 ml 70 ml 100 ml MORENA GIBSON MD Sep 03, 2018 09:15
[2018-09-03] MEDS ORDERED: POTASSIUM CHLORIDE 20 MEQ TABLET.ER. PO ONE (09:30)
[2018-09-03] MEDS ORDERED: BISACODYL 10 MG SUPP.RECT. PR PRN (10:15)
[2018-09-03] MEDS ORDERED: MAGNESIUM HYDROXIDE 2,400 MG/30 ML ORAL.SUSP. PO PRN (10:15)
[2018-09-03] MEDS: IV NORMAL SALINE 1000ML BAG 1,000 ML IV SCH ×2 (10:44→23:56)
[2018-09-03] MEDS: DAPTOmycin (GENERIC) IVPB 760 MG in IV NORMAL SALINE 50ML 50 ML IV SCH (10:47)
[2018-09-03] MEDS: CLOPIDOGREL BISULFATE 75 MG TABLET PO SCH (10:49)
[2018-09-03 11:17] VITALS: BP 135/73
[2018-09-03] MEDS: METOCLOPRAMIDE 5 MG TABLET. PO SCH ×3 (12:13→22:19)
[2018-09-03] MEDS: CLOTRIMAZOLE 10 MG TROCHE. MM SCH ×4 (12:13→22:25)
[2018-09-03 15:02] VITALS: BP 135/69
[2018-09-03 19:00] VITALS: BP 142/75
[2018-09-03] MEDS: ATORVASTATIN CALCIUM 20 MG TABLET PO SCH (22:18)
[2018-09-03] MEDS: SERTRALINE 25 MG TABLET. PO SCH (22:19)
[2018-09-03] MEDS: INSULIN GLARGINE 300 UNITS/3 ML INSULN.PEN. SQ SCH (22:24)
[2018-09-03 23:00] VITALS: BP 153/87
[2018-09-04] MEDS: oxyCODONE/APAP 5/325 1 TAB TABLET PO PRN ×4 (00:08→18:30)
[2018-09-04 03:00] VITALS: BP 172/90
[2018-09-04] MEDS: PIPERACILLIN/TAZOBACTAM 3.375 GM in IV NORMAL SALINE 50ML 50 ML IV SCH ×3 (06:10→18:33)
[2018-09-04] MEDS: CLOTRIMAZOLE 10 MG TROCHE. MM SCH ×5 (06:10→21:54)
[2018-09-04] MEDS: METOCLOPRAMIDE 5 MG TABLET. PO SCH ×4 (06:11→21:53)
[2018-09-04] MEDS: ACETAMINOPHEN 325 MG TABLET. PO SCH (06:11)
[2018-09-04 07:00] VITALS: BP 167/79
[2018-09-04] MEDS: INSULIN LISPRO 300 UNITS/3 ML INSULN.PEN. SQ SCH ×4 (07:30→22:06)
[2018-09-04 08:28] LABS: HEMATOCRIT 33.8 % (39.0-53.0); HEMOGLOBIN 11.7 g/dL (13.0-17.5); RED BLOOD COUNT 3.91 x10^6/uL (4.30-5.70); RED CELL DISTRIBUTION WIDTH 13.3 % (11.5-14.5); WHITE BLOOD COUNT 10.5 x10^3/uL (4.0-11.0)
[2018-09-04] MEDS: ASPIRIN ENTERIC COATED 81 MG TABLET.DR. PO SCH (08:36)
[2018-09-04] MEDS: SENNOSIDES/DOCUSATE 8.6/50MG TABLET. PO PRN (08:36)
[2018-09-04] MEDS: LISINOPRIL 5 MG TABLET. PO SCH (08:36)
[2018-09-04] MEDS: CLOPIDOGREL BISULFATE 75 MG TABLET PO SCH (08:36)
[2018-09-04] MEDS: LACTOBACILLUS RHAMNOSUS GG 1 CAPSULE. PO SCH ×2 (08:36→21:53)
[2018-09-04] MEDS: MULTIVITAMIN with MINERAL TABLET. PO SCH (08:36)
[2018-09-04] MEDS: ASCORBIC ACID 500 MG TABLET PO SCH ×2 (08:36→21:53)
[2018-09-04 08:53] LABS: ALBUMIN 2.3 g/dL (3.4-5.0); ALBUMIN/GLOBULIN RATIO 0.5 (1.0-1.7); CALCIUM 8.5 mg/dL (8.5-10.1); GFR 81.9; POTASSIUM 3.4 mmol/L (3.5-5.1); TOTAL BILIRUBIN 0.9 mg/dL (0.2-1.0); TOTAL PROTEIN 6.5 g/dL (6.4-8.2)
--- NOTE | 2018-09-04 09:29 | PDOC ---
Infectious Disease Note Subjective Subjective Pain controlled Not very hungry Denies F/C/N/V + flatus, No BM ROS ROS per HPI Vital Sign Vital Signs Vital Signs Date Time Temp Pulse Resp B/P (MAP) Pulse Ox O2 Delivery O2 Flow Rate FiO2 09/04/18 08:36 89 167/79 09/04/18 07:00 98.5 18 94 Room Air 98.5 Physical Exam PHYSICAL EXAM GENERAL: Lying down, awake, NAD HEENT: Pupils equal and reactive. Normal conjunctivae. Oral cavity, pharynx dry NECK: Supple LUNGS: Clear to auscultation bilaterally. HEART: S1, S2. ABDOMEN: Soft, nontender, positive bowel sounds. EXTREMITIES: Right lower extremity incision well-approx/teto along the medial aspect of his leg; Rooke boot in place. Right foot and groin wound vac in place. No cyanosis SKIN: Warm to touch without signs of rash. NEUROLOGIC: Answers questions appropriately RUE-PICC (09/02) clean PIV Labs Lab Laboratory Tests Test 09/03/18 10:49 09/03/18 17:06 09/03/18 22:15 09/04/18 07:20 Glucose (Fingerstick) 264 mg/dL (70-99) 201 mg/dL (70-99) 183 mg/dL (70-99) 166 mg/dL (70-99) Test 09/04/18 08:15 White Blood Count 10.5 x10^3/uL (4.0-11.0) Red Blood Count 3.91 x10^6/uL (4.30-5.70) Hemoglobin 11.7 g/dL (13.0-17.5) Hematocrit 33.8 % (39.0-53.0) Mean Corpuscular Volume 86 fL (79-100) Mean Corpuscular Hemoglobin 30 pg (25-35) Mean Corpuscular Hemoglobin Concent 35 g/dL (31-37) Red Cell Distribution Width 13.3 % (11.5-14.5) Platelet Count 187 x10^3/uL (140-400) Sodium Level 138 mmol/L (136-145) Potassium Level 3.4 mmol/L (3.5-5.1) Chloride Level 101 mmol/L (98-107) Carbon Dioxide Level 26 mmol/L (21-32) Anion Gap 11 (6-14) Blood Urea Nitrogen 12 mg/dL (8-26) Creatinine 1.0 mg/dL (0.7-1.3) Estimated GFR (Cockcroft-Gault) 81.9 BUN/Creatinine Ratio 12 (6-20) Glucose Level 170 mg/dL (70-99) Calcium Level 8.5 mg/dL (8.5-10.1) Total Bilirubin 0.9 mg/dL (0.2-1.0) Aspartate Amino Transf (AST/SGOT) 17 U/L (15-37) Alanine Aminotransferase (ALT/SGPT) 12 U/L (16-63) Alkaline Phosphatase 97 U/L (46-116) Creatine Kinase 116 U/L (39-308) Total Protein 6.5 g/dL (6.4-8.2) Albumin 2.3 g/dL (3.4-5.0) Albumin/Globulin Ratio 0.5 (1.0-1.7) Objective Assessment Thrush. previous abx and steroids Right foot osteomyelitis, status post incision and drainage 09/01/2018. h/o CoNS Peripheral arterial disease, status post bypass, right lower extremity 09/01/2018. Leukocytosis, status post dexamethasone 09/01/2018. Acute kidney injury, better Diabetes. Recent MRSE as mentioned above. History of Strep gallolyticus. Plan Plan of Care Dapto (08/23) with RAVEN Myclex lion Zosyn for now - (Had been on Doxy and Augmentin prior to admit) Probiotics Needs Colonoscopy if not performed since August 2014 with h/o Strep Gallolyticus D/w father at bedside Attending Co-Sign The patient was seen and interviewed as well as examined at the bedside. The chart was reviewed. The case was discussed. Agree with the plan of care. EVA HASSAN APRN Sep 04, 2018 09:29 DANIELLE HURTADO MD Sep 04, 2018 11:50
[2018-09-04] MEDS: DAPTOmycin (GENERIC) IVPB 760 MG in IV NORMAL SALINE 50ML 50 ML IV SCH (10:25)
[2018-09-04 11:00] VITALS: BP 162/82
--- NOTE | 2018-09-04 12:32 | PDOC ---
Provider Note Provider Note AF VSS awake and alert right groin with prevena, no hematoma right leg incisions intact with no erythema/drainage right foot with VAC dressing right foot with strong doppler DP/PT pulses, doppler graft pulse POD #3 Right common femoral artery to posterior tibial artery bypass graft using right leg great saphenous vein and right lateral foot debridement - aspirin and plavix daily - wound VAC change on thursday to the right foot - encourage diet and ambulation - PT/OT - antibiotics per ID FRANCISCO STEPHENS MD Sep 04, 2018 12:32
[2018-09-04] MEDS ORDERED: POTASSIUM CHLORIDE 10 MEQ TABLET.ER. PO ONE (13:45)
--- NOTE | 2018-09-04 13:53 | PDOC ---
PROGRESS NOTES Subjective c/o right groin pain from "suction cup". Pain controlled with Percocet but needs Ativan prior for control of nausea. No post op complications, sugars better but not eating much Objective Afebrile General: A&O, his dad is present Heart: RRR Lungs: CTA Abd: non focal tenderness Ext: right leg incision open, dry, protective heel boot on, good pulse Vital Signs Vital Signs Date Time Temp Pulse Resp B/P (MAP) Pulse Ox O2 Delivery O2 Flow Rate FiO2 09/04/18 12:19 Room Air 09/04/18 11:00 98.5 88 18 162/82 (108) 96 98.5 09/02/18 08:00 8.0 I & O Intake and Output 09/04/18 06:59 Intake Total 650 ml Output Total 1500 ml Balance -850 ml Intake Oral 200 ml IV Total 450 ml Output Urine Total 1500 ml Assessment and Plan Assessment Severe peripheral artery disease status post revascularization of right lower extremity postop day 3. Type 2 diabetes - recent control good. Diabetic gastroparesis with chronic nausea. HLD Depression Plan of Care Continue wound care & PT/OT, Continue IV antibx Started Lantus Increase SS insulin Add Lipitor Await social service input on Rehab vs. SNU vs. Home with Home Health started sertraline Kerry VEGA MD Sep 04, 2018 13:53
[2018-09-04 15:00] VITALS: BP 135/67
[2018-09-04 19:45] VITALS: BP 146/77
[2018-09-04] MEDS: IV NORMAL SALINE 1000ML BAG 1,000 ML IV SCH (19:46)
[2018-09-04] MEDS: ATORVASTATIN CALCIUM 20 MG TABLET PO SCH (21:53)
[2018-09-04] MEDS: SERTRALINE 25 MG TABLET. PO SCH (21:54)
[2018-09-04] MEDS: INSULIN GLARGINE 300 UNITS/3 ML INSULN.PEN. SQ SCH (22:07)
[2018-09-04 23:30] VITALS: BP 142/85
[2018-09-05] MEDS: PIPERACILLIN/TAZOBACTAM 3.375 GM in IV NORMAL SALINE 50ML 50 ML IV SCH ×4 (00:16→17:36)
[2018-09-05] MEDS: oxyCODONE/APAP 5/325 1 TAB TABLET PO PRN ×5 (00:20→22:35)
[2018-09-05 03:00] VITALS: BP 154/78
[2018-09-05] MEDS: CLOTRIMAZOLE 10 MG TROCHE. MM SCH ×5 (06:21→22:28)
[2018-09-05 07:00] VITALS: BP 156/77
[2018-09-05] MEDS: ASCORBIC ACID 500 MG TABLET PO SCH ×2 (09:57→22:28)
[2018-09-05] MEDS: MULTIVITAMIN with MINERAL TABLET. PO SCH (09:58)
[2018-09-05] MEDS: LISINOPRIL 5 MG TABLET. PO SCH (09:58)
[2018-09-05] MEDS: LACTOBACILLUS RHAMNOSUS GG 1 CAPSULE. PO SCH ×2 (09:58→22:29)
[2018-09-05] MEDS: CLOPIDOGREL BISULFATE 75 MG TABLET PO SCH (09:58)
[2018-09-05] MEDS: METOCLOPRAMIDE 5 MG TABLET. PO SCH ×4 (09:58→22:28)
[2018-09-05] MEDS: ASPIRIN ENTERIC COATED 81 MG TABLET.DR. PO SCH (09:59)
[2018-09-05] MEDS: DAPTOmycin (GENERIC) IVPB 760 MG in IV NORMAL SALINE 50ML 50 ML IV SCH (09:59)
[2018-09-05] MEDS: INSULIN LISPRO 300 UNITS/3 ML INSULN.PEN. SQ SCH ×4 (10:00→22:42)
--- NOTE | 2018-09-05 10:14 | PDOC ---
Provider Note Provider Note AF VSS awake and alert right groin with prevena, no hematoma right leg incisions intact with no erythema/drainage right foot with VAC dressing right foot with strong doppler DP/PT pulses, doppler graft pulse POD #4 Right common femoral artery to posterior tibial artery bypass graft using right leg great saphenous vein and right lateral foot debridement - aspirin and plavix daily - wound VAC change on thursday to the right foot - encourage diet and ambulation - PT/OT, will need rehab at this point - antibiotics per ID - d/c IV fluids - will remove right groin prevena VAC tomorrow FRANCISCO STEPHENS MD Sep 05, 2018 10:14
[2018-09-05 11:00] VITALS: BP 144/67
--- NOTE | 2018-09-05 11:09 | PDOC ---
Infectious Disease Note Subjective Subjective Pain controlled feeling better today Denies F/C/N/V Vital Sign Vital Signs Vital Signs Date Time Temp Pulse Resp B/P (MAP) Pulse Ox O2 Delivery O2 Flow Rate FiO2 09/05/18 10:14 95 Room Air 8.0 09/05/18 09:58 86 156/77 09/05/18 07:00 98.9 18 98.9 Physical Exam PHYSICAL EXAM GENERAL: Lying down, alert, NAD HEENT: Pupils equal and reactive. Normal conjunctivae. Oral cavity, pharynx dry NECK: Supple LUNGS: Clear to auscultation bilaterally. HEART: S1, S2. ABDOMEN: Soft, nontender, positive bowel sounds. EXTREMITIES: Right lower extremity incision well-approx/teto along the medial aspect of his leg; Rooke boot in place. Right foot and groin wound vac in place. No cyanosis SKIN: Warm to touch without signs of rash. NEUROLOGIC: Alert, and answers questions appropriately RUE-PICC (09/02) clean Labs Lab Laboratory Tests Test 09/04/18 11:23 09/04/18 17:17 09/04/18 20:37 09/05/18 08:01 Glucose (Fingerstick) 155 mg/dL (70-99) 218 mg/dL (70-99) 232 mg/dL (70-99) 158 mg/dL (70-99) Objective Assessment Thrush. previous abx and steroids Right foot osteomyelitis, status post incision and drainage 09/01/2018. h/o CoNS Peripheral arterial disease, status post bypass, right lower extremity 09/01/2018. Leukocytosis, status post dexamethasone 09/01/2018. Acute kidney injury, better Diabetes. Recent MRSE as mentioned above. History of Strep gallolyticus. Plan Plan of Care Dapto (08/23) with RAVEN (CK 116 on 09/04) Myclex lion Zosyn for now - (Had been on Doxy and Augmentin prior to admit) Probiotics Needs Colonoscopy if not performed since August 2014 with h/o Strep Gallolyticus D/w father at bedside Pt seen and examined case discussed agree with above a /p EVA HASSAN APRN Sep 05, 2018 11:09 KVNG HURTADO MD Sep 05, 2018 14:46
--- NOTE | 2018-09-05 12:44 | PDOC ---
PROGRESS NOTES Subjective More comfortable today but still not out of pain. Appetite still poor. No cardiac issues on monitor. Objective General: A&O, NAD Heart: RRR Lungs: CTA Abd: soft, non tender Ext: right leg healing Vital Signs Vital Signs Date Time Temp Pulse Resp B/P (MAP) Pulse Ox O2 Delivery O2 Flow Rate FiO2 09/05/18 11:16 95 Room Air 09/05/18 11:00 98.6 90 18 144/67 (92) 98.6 09/05/18 10:14 8.0 I & O Intake and Output 09/05/18 06:59 Intake Total 1260 ml Output Total 1730 ml Balance -470 ml Intake Oral 1110 ml IV Total 150 ml Output Urine Total 1530 ml Urine/Stool Mix 200 ml # Bowel Movements 1 Assessment and Plan A: Severe peripheral artery disease status post revascularization of right lower extremity postop day 3. Type 2 diabetes - recent control better but he is not eating well. Diabetic gastroparesis with chronic nausea. HLD Depression P: Continue wound care & PT/OT, Continue IV antibx Started Lantus Increase SS insulin Add Lipitor Await social service input on Rehab vs. SNU vs. Home with Home Health started sertraline Kerry VEGA MD Sep 05, 2018 12:44
[2018-09-05 15:00] VITALS: BP 151/67
[2018-09-05] MEDS: ONDANSETRON PF 4 MG/2 ML VIAL. IV PRN (16:29)
[2018-09-05 19:00] VITALS: BP 127/74
--- NOTE | 2018-09-05 19:45 | NUR ---
Wound vac is to be removed in the AM on 09/06/18 before PT works with the patient. Photographs will be taken at the time of removal in the AM.
[2018-09-05] MEDS: SERTRALINE 25 MG TABLET. PO SCH (22:29)
[2018-09-05] MEDS: ATORVASTATIN CALCIUM 20 MG TABLET PO SCH (22:29)
[2018-09-05] MEDS: INSULIN GLARGINE 300 UNITS/3 ML INSULN.PEN. SQ SCH (22:33)
[2018-09-05 23:00] VITALS: BP 138/71
[2018-09-06] MEDS: PIPERACILLIN/TAZOBACTAM 3.375 GM in IV NORMAL SALINE 50ML 50 ML IV SCH ×4 (00:52→17:21)
[2018-09-06 03:00] VITALS: BP 122/64
[2018-09-06] MEDS: oxyCODONE/APAP 5/325 1 TAB TABLET PO PRN ×3 (05:32→17:53)
[2018-09-06 05:53] LABS: HEMATOCRIT 33.6 % (39.0-53.0); HEMOGLOBIN 11.5 g/dL (13.0-17.5); RED BLOOD COUNT 3.91 x10^6/uL (4.30-5.70); RED CELL DISTRIBUTION WIDTH 13.7 % (11.5-14.5); WHITE BLOOD COUNT 8.2 x10^3/uL (4.0-11.0)
[2018-09-06] MEDS: CLOTRIMAZOLE 10 MG TROCHE. MM SCH ×5 (05:56→21:52)
[2018-09-06 06:03] LABS: CALCIUM 8.7 mg/dL (8.5-10.1); GFR 81.9; POTASSIUM 3.2 mmol/L (3.5-5.1)
[2018-09-06 07:00] VITALS: BP 139/57
[2018-09-06] MEDS: INSULIN LISPRO 300 UNITS/3 ML INSULN.PEN. SQ SCH ×4 (07:30→21:56)
[2018-09-06] MEDS: MULTIVITAMIN with MINERAL TABLET. PO SCH (08:30)
[2018-09-06] MEDS: LISINOPRIL 5 MG TABLET. PO SCH (08:30)
[2018-09-06] MEDS: LACTOBACILLUS RHAMNOSUS GG 1 CAPSULE. PO SCH ×2 (08:30→21:52)
[2018-09-06] MEDS: ASCORBIC ACID 500 MG TABLET PO SCH ×2 (08:30→21:52)
[2018-09-06] MEDS: METOCLOPRAMIDE 5 MG TABLET. PO SCH ×4 (08:30→21:52)
[2018-09-06] MEDS: CLOPIDOGREL BISULFATE 75 MG TABLET PO SCH (08:31)
[2018-09-06] MEDS: ASPIRIN ENTERIC COATED 81 MG TABLET.DR. PO SCH (08:31)
[2018-09-06] MEDS: DAPTOmycin (GENERIC) IVPB 760 MG in IV NORMAL SALINE 50ML 50 ML IV SCH (09:59)
--- NOTE | 2018-09-06 10:49 | PDOC ---
Provider Note Provider Note Vascular S: Patient continues to complain of nausea, this is improving and oral intake is improving. Continues to complain of right leg pain, improving as well. O; AF VSS awake and alert Prevena vac removed right groin, incision dry and intact, no hematoma right leg incisions intact with no erythema/drainage right foot with VAC dressing removed, wound bed clean, exposed bone, some slight maceration along skin edges. right foot with strong doppler DP/PT pulses, doppler graft pulse POD #4 Right common femoral artery to posterior tibial artery bypass graft using right leg great saphenous vein and right lateral foot debridement - aspirin and plavix daily - continue wound vac therapy, ok to shower today before wound vac is replaced. - encourage diet and nutritional supplements - encourage ambulation - PT/OT, ? home versus rehab - antibiotics per NNAMDI PICKERING APRN Sep 06, 2018 10:49
[2018-09-06 11:00] VITALS: BP 140/69
--- NOTE | 2018-09-06 11:16 | NUR ---
SS following up with discharge planning. PT/OT recommending usp unit at discharge. logistics planner, Arlette Mosqueda, met with pt to discuss usp unit. Pt declining usp unit at this time stating that he would prefer to discharge to home with home healthcare and outpatient IV antibiotics. Pt agreeable to [facility], ; fax [phone], at this time. SS will continue to follow for discharge planning.
--- NOTE | 2018-09-06 11:19 | NUR ---
This nurse took over patient care from SHELLEY Cool around 0900. Prior to PT this morning the vascular physician came in and discontinued the patients prevena vac in his right groin and the wound vac on the patients right foot stating they will have wound care follow up and put it back on later today. Patient participated with PT but was noncompliant with weight bearing status according to the therapist. Will continue to monitor
[2018-09-06] MEDS ORDERED: ATOR20TA58 PO (11:38)
[2018-09-06] MEDS ORDERED: CLOP75TA PO (11:38)
--- NOTE | 2018-09-06 11:49 | PDOC ---
Infectious Disease Note Subjective: Subjective Pain controlled feeling better Denies F/C/N/V has constipation ROS: ROS Negative except for above. Vital Signs: Vital Signs Vital Signs Date Time Temp Pulse Resp B/P (MAP) Pulse Ox O2 Delivery O2 Flow Rate FiO2 09/06/18 11:00 97.6 80 18 140/69 (92) 97 Room Air 97.6 09/05/18 10:14 8.0 Physical Exam: PHYSICAL EXAM GENERAL: Lying down, alert, NAD HEENT: Pupils equal and reactive. Normal conjunctivae. Oral cavity, pharynx dry NECK: Supple LUNGS: Clear to auscultation bilaterally. HEART: S1, S2. ABDOMEN: Soft, nontender, positive bowel sounds. EXTREMITIES: Right lower extremity incision well-approx/teto along the medial aspect of his leg; Rooke boot in place. Right foot and groin wound vac in place. No cyanosis SKIN: Warm to touch without signs of rash. NEUROLOGIC: Alert, and answers questions appropriately RUE-PICC (09/02) clean Medications: Inpatient Meds: Current Medications Medications (Trade) Dose Ordered Sig/Toby Start Time Stop Time Status Last Admin Dose Admin Acetaminophen (Tylenol) 650 mg Q8HRS 09/01/18 22:00 09/04/18 13:39 DC 09/04/18 06:11 650 MG Ascorbic Acid (Vitamin C) 500 mg BID 09/01/18 21:00 09/06/18 08:30 500 MG Aspirin (Ecotrin) 81 mg [id number] 09/01/18 17:00 09/06/18 08:31 81 MG Atorvastatin Calcium (Lipitor) 20 mg QHS 09/03/18 21:00 09/05/18 22:29 20 MG Bisacodyl (Dulcolax Supp) 10 mg PRN DAILY PRN 09/03/18 10:15 Cefazolin Sodium 1 gm/Sodium Chloride 500 ml @ 500 mls/hr 1X ONCE 09/01/18 14:30 09/01/18 15:29 DC 09/01/18 14:36 Cefazolin Sodium/ Dextrose 50 ml @ 100 mls/hr 1X ONCE 09/01/18 15:00 09/01/18 15:29 DC 09/01/18 15:00 100 MLS/HR Cellulose (Surgicel Fibrillar 1x2) 1 each STK-MED ONCE 09/01/18 09:40 09/01/18 10:40 DC 09/01/18 14:37 1 EACH Clopidogrel Bisulfate (Plavix) 75 mg DAILYWBKFT 09/01/18 17:00 09/06/18 08:31 75 MG Clotrimazole (Mycelex) 10 mg 5XDAY 09/03/18 10:00 09/06/18 10:21 10 MG Daptomycin 760 mg/ Sodium Chloride 50 ml @ 100 mls/hr Q24H 09/02/18 10:00 09/06/18 09:59 100 MLS/HR Dexamethasone Sodium Phosphate (Decadron) 4 mg STK-MED ONCE 09/01/18 09:31 09/01/18 09:32 DC Dextrose (Dextrose 50%-Water Syringe) 12.5 gm PRN Q15MIN PRN 09/01/18 17:45 Fentanyl Citrate (Fentanyl 2ml Vial) 100 mcg STK-MED ONCE 09/01/18 14:51 09/01/18 14:52 DC Gelatin ([place] Dental Sponge Size 4) 1 each STK-MED ONCE 09/01/18 09:40 09/01/18 10:40 DC Heparin Sodium (Porcine) (Heparin Sodium) 10,000 unit STK-MED ONCE 09/01/18 11:26 09/01/18 11:27 DC Heparin Sodium (Porcine) 5000 unit/Sodium Chloride 505 ml @ 505 mls/hr 1X ONCE 09/01/18 14:00 09/01/18 14:59 DC 09/01/18 14:37 Hydralazine HCl (Apresoline Inj) 5 mg PRN Q4HRS PRN 09/01/18 15:15 Hydromorphone HCl (Dilaudid) 0.5 mg PRN Q10MIN PRN 09/01/18 07:00 09/01/18 21:00 DC Info (Non-Icu Electrolyte Protocol) 1 ea PRN DAILY PRN 09/02/18 09:00 Insulin Glargine (Lantus) 10 units QHS 09/03/18 21:00 09/05/18 22:33 10 UNITS Insulin Human Lispro (HumaLOG VIAL for OP,RR ONLY) 0-10 units PRN Q1HR PRN 09/01/18 09:15 09/01/18 21:00 DC 09/01/18 15:28 8 UNIT Insulin Human Lispro (HumaLOG) 0-12 UNITS QIDACHS 09/03/18 11:30 09/05/18 22:42 2 UNITS Iohexol (Omnipaque 300 Mg/ml) 50 ml STK-MED ONCE 09/01/18 09:40 09/01/18 10:40 DC Labetalol HCl (Normodyne Iv Push) 10 mg PRN Q2HR PRN 09/01/18 15:15 Lactobacillus Rhamnosus (Culturelle) 1 cap BID 09/02/18 21:00 09/06/18 08:30 1 CAP Lidocaine HCl (Lidocaine Pf 2% Vial) 5 ml STK-MED ONCE 09/01/18 09:31 09/01/18 09:32 DC Lidocaine/Sodium Bicarbonate (Buffered Lidocaine 1%) 3 ml 1X ONCE 09/02/18 12:15 09/02/18 12:16 DC 09/02/18 12:15 4 ML Lisinopril (Prinivil) 5 mg DAILY 09/02/18 09:00 09/06/18 08:30 5 MG Lorazepam (Ativan Inj) 0.5 mg PRN Q6HRS PRN 09/02/18 13:00 09/06/18 05:33 0.5 MG Magnesium Hydroxide (Milk Of Magnesia) 2,400 mg PRN DAILY PRN 09/03/18 10:15 09/04/18 08:37 2,400 MG Metoclopramide HCl (Reglan) 5 mg TIDACHC 09/03/18 11:30 09/06/18 08:30 5 MG Midazolam HCl (Versed) 2 mg STK-MED ONCE 09/01/18 09:32 09/01/18 09:33 DC Morphine Sulfate (Morphine Sulfate) 2 mg PRN Q1HR PRN 09/01/18 15:15 09/02/18 17:58 2 MG Multivitamins (Thera M Plus) 1 tab DAILY 09/02/18 09:00 09/06/18 08:30 1 TAB Naloxone HCl (Narcan) 0.4 mg PRN Q2MIN PRN 09/01/18 15:15 UNV Ondansetron HCl (Zofran Odt) 4 mg Q4HRS PRN 09/02/18 11:30 Ondansetron HCl (Zofran) 4 mg PRN Q6HRS PRN 09/01/18 15:15 09/05/18 16:29 4 MG Oxycodone HCl (Roxicodone) 5 mg PRN Q3HRS PRN 09/01/18 15:15 09/03/18 14:21 5 MG Oxycodone/ Acetaminophen (Percocet 5/325) 2 tab PRN Q4HRS PRN 09/01/18 15:15 09/02/18 02:14 2 TAB Papaverine HCl 60 mg STK-MED ONCE 09/01/18 09:40 09/01/18 10:40 DC Phenylephrine HCl (PHENYLEPHRINE in 0.9% NACL PF) 1 mg STK-MED ONCE 09/01/18 11:35 09/01/18 11:36 DC Piperacillin Sod/ Tazobactam Sod 3.375 gm/Sodium Chloride 50 ml @ 100 mls/hr Q6HRS 09/01/18 18:00 09/06/18 05:48 100 MLS/HR Potassium Chloride (Klor-Con) 10 meq 1X ONCE 09/04/18 13:45 09/04/18 13:46 DC 09/04/18 13:41 10 MEQ Prochlorperazine Edisylate (Compazine) 5 mg PRN Q6HRS PRN 09/01/18 15:15 09/02/18 08:55 5 MG Propofol 20 ml @ As Directed STK-MED ONCE 09/01/18 09:31 09/01/18 09:32 DC Ringer's Solution 1,000 ml @ 30 mls/hr Q24H 09/01/18 07:00 09/01/18 18:59 DC 09/01/18 09:32 30 MLS/HR Rocuronium [place] (Zemuron) 50 mg STK-MED ONCE 09/01/18 09:31 09/01/18 09:32 DC Senna/Docusate Sodium (Senna Plus) 1 tab PRN BID PRN 09/01/18 15:15 09/04/18 08:36 1 TAB Sertraline HCl (Zoloft) 25 mg QHS 09/03/18 21:00 09/05/18 22:29 25 MG Sevoflurane (Ultane) 90 ml STK-MED ONCE 09/01/18 14:45 09/01/18 14:46 DC Sodium Chloride 1,000 ml @ 25 mls/hr Q24H 09/01/18 15:14 UNV Sodium Chloride (Normal Saline Flush) 3 ml QSHIFT PRN 09/01/18 15:15 Vancomycin HCl (Vanco Per Pharmacy) 1 each PRN DAILY PRN 09/01/18 15:15 09/02/18 08:59 DC 09/01/18 16:40 1 EACH Vancomycin HCl (Vancomycin Trough Level) 1 each 1X ONCE 09/03/18 05:30 09/03/18 05:31 Cancel Vancomycin HCl 1 gm/Sodium Chloride 250 ml @ 250 mls/hr 1X ONCE 09/01/18 11:30 09/01/18 12:29 DC 09/01/18 11:30 250 MLS/HR Vancomycin HCl 2 gm/Sodium Chloride 500 ml @ 250 mls/hr Q12H 09/01/18 18:00 09/02/18 08:59 DC 09/02/18 05:48 250 MLS/HR Labs: Lab Laboratory Tests Test 09/05/18 16:50 09/05/18 21:26 09/06/18 05:45 09/06/18 07:31 Glucose (Fingerstick) 196 mg/dL (70-99) 180 mg/dL (70-99) 138 mg/dL (70-99) White Blood Count 8.2 x10^3/uL (4.0-11.0) Red Blood Count 3.91 x10^6/uL (4.30-5.70) Hemoglobin 11.5 g/dL (13.0-17.5) Hematocrit 33.6 % (39.0-53.0) Mean Corpuscular Volume 86 fL (79-100) Mean Corpuscular Hemoglobin 29 pg (25-35) Mean Corpuscular Hemoglobin Concent 34 g/dL (31-37) Red Cell Distribution Width 13.7 % (11.5-14.5) Platelet Count 188 x10^3/uL (140-400) Sodium Level 138 mmol/L (136-145) Potassium Level 3.2 mmol/L (3.5-5.1) Chloride Level 100 mmol/L (98-107) Carbon Dioxide Level 28 mmol/L (21-32) Anion Gap 10 (6-14) Blood Urea Nitrogen 9 mg/dL (8-26) Creatinine 1.0 mg/dL (0.7-1.3) Estimated GFR (Cockcroft-Gault) 81.9 Glucose Level 142 mg/dL (70-99) Calcium Level 8.7 mg/dL (8.5-10.1) Objective: Assessment: Right foot osteomyelitis, status post incision and drainage 09/01/2018. h/o CoNS,exposed bone Peripheral arterial disease, status post bypass, right lower extremity 09/01/2018. Leukocytosis, status post dexamethasone 09/01/2018. Acute kidney injury, better Diabetes. Recent MRSE as mentioned above. History of Strep gallolyticus.; has colonoscopy in the past, Thrush. previous abx and steroids Plan: Plan of Care Dapto (09/02) with RAVEN last CK 116 on 09/04 Myclex lion Zosyn for now - (Had been on Doxy and Augmentin prior to admit) Probiotics KVNG HURTADO MD Sep 06, 2018 11:49
--- NOTE | 2018-09-06 11:58 | NUR ---
Patient refused his afternoon insulin stating he did not want to eat lunch. Will follow up
--- NOTE | 2018-09-06 12:39 | PDOC ---
PROGRESS NOTES Subjective Subjective Patient feeling better. Patient desires to go home and return for outpatient IV antibx (if it can be changed to a daily infusion) or home with home health and home antibx or to SNU as last resort if insurance will only cover there. Patient will also f/u with wound care clinic. Objective Objective Vital Signs Date Time Temp Pulse Resp B/P (MAP) Pulse Ox O2 Delivery O2 Flow Rate FiO2 09/06/18 11:42 Room Air 09/06/18 11:00 97.6 80 18 140/69 (92) 97 97.6 09/05/18 10:14 8.0 Intake and Output 09/06/18 07:00 Intake Total 540 ml Output Total 600 ml Balance -60 ml Intake Oral 540 ml Output Urine Total 600 ml # Voids 1 Physical Exam Abdomen: Normal bowel sounds Heart: Regular rate Extremities: Other (healing leg wound and incision) General: Alert Lungs: Clear to auscultation Assessment Assessment Severe peripheral artery disease status post revascularization of right lower extremity postop day 5. Type 2 diabetes high noncompliant. Diabetic gastroparesis. HLD Depression Plan Plan of Care discharge to SNU,Or home with home health Continue wound care & PT/OT Continue IV antix Await social service input IV antibx coverage Switch to daily IV antibx if possible per ID if possible for outpatient treatment Comment Review of Relevant I have reviewed the following items jo (where applicable) has been applied. Labs Laboratory Tests Test 09/04/18 17:17 09/04/18 20:37 09/05/18 08:01 09/05/18 11:38 Glucose (Fingerstick) 218 mg/dL (70-99) 232 mg/dL (70-99) 158 mg/dL (70-99) 196 mg/dL (70-99) Test 09/05/18 16:50 09/05/18 21:26 09/06/18 05:45 09/06/18 07:31 Glucose (Fingerstick) 196 mg/dL (70-99) 180 mg/dL (70-99) 138 mg/dL (70-99) White Blood Count 8.2 x10^3/uL (4.0-11.0) Red Blood Count 3.91 x10^6/uL (4.30-5.70) Hemoglobin 11.5 g/dL (13.0-17.5) Hematocrit 33.6 % (39.0-53.0) Mean Corpuscular Volume 86 fL (79-100) Mean Corpuscular Hemoglobin 29 pg (25-35) Mean Corpuscular Hemoglobin Concent 34 g/dL (31-37) Red Cell Distribution Width 13.7 % (11.5-14.5) Platelet Count 188 x10^3/uL (140-400) Sodium Level 138 mmol/L (136-145) Potassium Level 3.2 mmol/L (3.5-5.1) Chloride Level 100 mmol/L (98-107) Carbon Dioxide Level 28 mmol/L (21-32) Anion Gap 10 (6-14) Blood Urea Nitrogen 9 mg/dL (8-26) Creatinine 1.0 mg/dL (0.7-1.3) Estimated GFR (Cockcroft-Gault) 81.9 Glucose Level 142 mg/dL (70-99) Calcium Level 8.7 mg/dL (8.5-10.1) Test 09/06/18 11:45 Glucose (Fingerstick) 197 mg/dL (70-99) Laboratory Tests Test 09/05/18 16:50 09/05/18 21:26 09/06/18 05:45 09/06/18 07:31 Glucose (Fingerstick) 196 mg/dL (70-99) 180 mg/dL (70-99) 138 mg/dL (70-99) White Blood Count 8.2 x10^3/uL (4.0-11.0) Red Blood Count 3.91 x10^6/uL (4.30-5.70) Hemoglobin 11.5 g/dL (13.0-17.5) Hematocrit 33.6 % (39.0-53.0) Mean Corpuscular Volume 86 fL (79-100) Mean Corpuscular Hemoglobin 29 pg (25-35) Mean Corpuscular Hemoglobin Concent 34 g/dL (31-37) Red Cell Distribution Width 13.7 % (11.5-14.5) Platelet Count 188 x10^3/uL (140-400) Sodium Level 138 mmol/L (136-145) Potassium Level 3.2 mmol/L (3.5-5.1) Chloride Level 100 mmol/L (98-107) Carbon Dioxide Level 28 mmol/L (21-32) Anion Gap 10 (6-14) Blood Urea Nitrogen 9 mg/dL (8-26) Creatinine 1.0 mg/dL (0.7-1.3) Estimated GFR (Cockcroft-Gault) 81.9 Glucose Level 142 mg/dL (70-99) Calcium Level 8.7 mg/dL (8.5-10.1) Test 09/06/18 11:45 Glucose (Fingerstick) 197 mg/dL (70-99) Medications Current Medications Ondansetron HCl (Zofran) 4 mg PRN Q6HRS PRN IV NAUSEA/VOMITING; Start 09/01/18 at 07:00; Stop 09/01/18 at 21:00; Status DC Fentanyl Citrate (Fentanyl 2ml Vial) 25 mcg PRN Q5MIN PRN IV MILD PAIN 1-3; Start 09/01/18 at 07:00; Stop 09/01/18 at 21:00; Status DC Fentanyl Citrate (Fentanyl 2ml Vial) 50 mcg PRN Q5MIN PRN IV MODERATE TO SEVERE PAIN; Start 09/01/18 at 07:00; Stop 09/01/18 at 21:00; Status DC Morphine Sulfate (Morphine Sulfate) 1 mg PRN Q10MIN PRN IV SEVERE PAIN 7-10; Start 09/01/18 at 07:00; Stop 09/01/18 at 21:00; Status DC Ringer's Solution 1,000 ml @ 30 mls/hr Q24H IV Last administered on 09/01/18at 09:32; Start 09/01/18 at 07:00; Stop 09/01/18 at 18:59; Status DC Hydromorphone HCl (Dilaudid) 0.5 mg PRN Q10MIN PRN IV SEV PAIN, Second choice; Start 09/01/18 at 07:00; Stop 09/01/18 at 21:00; Status DC Prochlorperazine Edisylate (Compazine) 5 mg PACU PRN PRN IV NAUSEA, MRX1 Last administered on 09/01/18at 15:27; Start 09/01/18 at 07:00; Stop 09/01/18 at 21:00; Status DC Heparin Sodium (Porcine) 5000 unit/Sodium Chloride 505 ml @ 505 mls/hr 1X ONCE IRR Last administered on 09/01/18at 11:35; Start 09/01/18 at 06:00; Stop 09/01/18 at 06:59; Status DC Cefazolin Sodium 1 gm/Sodium Chloride 500 ml @ 500 mls/hr 1X ONCE IRR Last administered on 09/01/18at 11:35; Start 09/01/18 at 06:00; Stop 09/01/18 at 06:59; Status DC Cefazolin Sodium/ Dextrose 50 ml @ 100 mls/hr 1X PREOP PRN IV PRIOR TO PROCEDURE Last administered on 09/01/18at 11:00; Start 09/02/18 at 06:00; Stop 09/02/18 at 18:00; Status DC Insulin Human Lispro (HumaLOG VIAL for OP,RR ONLY) 0-10 units PRN Q1HR PRN SQ PER PROTOCOL Last administered on 09/01/18at 15:28; Start 09/01/18 at 09:15; Stop 09/01/18 at 21:00; Status DC Propofol 20 ml @ As Directed STK-MED ONCE IV ; Start 09/01/18 at 09:31; Stop 09/01/18 at 09:32; Status DC Lidocaine HCl (Lidocaine Pf 2% Vial) 5 ml STK-MED ONCE .ROUTE ; Start 09/01/18 at 09:31; Stop 09/01/18 at 09:32; Status DC Ondansetron HCl (Zofran) 4 mg STK-MED ONCE .ROUTE ; Start 09/01/18 at 09:31; Stop 09/01/18 at 09:32; Status DC Dexamethasone Sodium Phosphate (Decadron) 4 mg STK-MED ONCE .ROUTE ; Start 09/01/18 at 09:31; Stop 09/01/18 at 09:32; Status DC Rocuronium [place] (Zemuron) 50 mg STK-MED ONCE .ROUTE ; Start 09/01/18 at 09:31; Stop 09/01/18 at 09:32; Status DC Fentanyl Citrate (Fentanyl 2ml Vial) 100 mcg STK-MED ONCE .ROUTE ; Start 09/01/18 at 09:31; Stop 09/01/18 at 09:32; Status DC Midazolam HCl (Versed) 2 mg STK-MED ONCE .ROUTE ; Start 09/01/18 at 09:32; Stop 09/01/18 at 09:33; Status DC Gelatin (Gelfoam Dental Sponge Size 4) 1 each STK-MED ONCE .ROUTE ; Start 09/01/18 at 09:40; Stop 09/01/18 at 10:40; Status DC Iohexol (Omnipaque 300 Mg/ml) 50 ml STK-MED ONCE .ROUTE ; Start 09/01/18 at 09:40; Stop 09/01/18 at 10:40; Status DC Cellulose (Surgicel Fibrillar 1x2) 1 each STK-MED ONCE .ROUTE Last administered on 09/01/18at 14:37; Start 09/01/18 at 09:40; Stop 09/01/18 at 10:40; Status DC Papaverine HCl 60 mg STK-MED ONCE .ROUTE ; Start 09/01/18 at 09:40; Stop 09/01/18 at 10:40; Status DC Vancomycin HCl 1 gm/Sodium Chloride 250 ml @ 250 mls/hr 1X ONCE IV Last administered on 09/01/18at 11:30; Start 09/01/18 at 11:30; Stop 09/01/18 at 12:29; Status DC Heparin Sodium (Porcine) (Heparin Sodium) 10,000 unit STK-MED ONCE .ROUTE ; Start 09/01/18 at 11:26; Stop 09/01/18 at 11:27; Status DC Phenylephrine HCl (PHENYLEPHRINE in 0.9% NACL PF) 1 mg STK-MED ONCE IV ; Start 09/01/18 at 11:35; Stop 09/01/18 at 11:36; Status DC Fentanyl Citrate (Fentanyl 2ml Vial) 100 mcg STK-MED ONCE .ROUTE ; Start 09/01/18 at 12:30; Stop 09/01/18 at 12:31; Status DC Heparin Sodium (Porcine) 5000 unit/Sodium Chloride 505 ml @ 505 mls/hr 1X ONCE IRR Last administered on 09/01/18at 14:37; Start 09/01/18 at 14:00; Stop 09/01/18 at 14:59; Status DC Cefazolin Sodium 1 gm/Sodium Chloride 500 ml @ 500 mls/hr 1X ONCE IRR Last administered on 09/01/18at 14:36; Start 09/01/18 at 14:30; Stop 09/01/18 at 15:29; Status DC Cefazolin Sodium/ Dextrose 50 ml @ 100 mls/hr 1X ONCE IV Last administered on 09/01/18at 15:00; Start 09/01/18 at 15:00; Stop 09/01/18 at 15:29; Status DC Sevoflurane (Ultane) 90 ml STK-MED ONCE IH ; Start 09/01/18 at 14:45; Stop 09/01/18 at 14:46; Status DC Fentanyl Citrate (Fentanyl 2ml Vial) 100 mcg STK-MED ONCE .ROUTE ; Start 09/01/18 at 14:51; Stop 09/01/18 at 14:52; Status DC Ascorbic Acid (Vitamin C) 500 mg BID PO Last administered on 09/06/18at 08:30; Start 09/01/18 at 21:00 Multivitamins (Thera M Plus) 1 tab DAILY PO Last administered on 09/06/18at 08:30; Start 09/02/18 at 09:00 Lisinopril (Prinivil) 5 mg DAILY PO Last administered on 09/06/18at 08:30; Start 09/02/18 at 09:00 Prochlorperazine Edisylate (Compazine) 10 mg STK-MED ONCE .ROUTE ; Start 09/01/18 at 15:24; Stop 09/01/18 at 15:25; Status DC Aspirin (Ecotrin) 81 mg DAILYWBKFT PO Last administered on 09/06/18at 08:31; Start 09/01/18 at 17:00 Clopidogrel Bisulfate (Plavix) 75 mg DAILYWBKFT PO Last administered on 09/06/18at 08:31; Start 09/01/18 at 17:00 Oxycodone HCl (Roxicodone) 5 mg PRN Q3HRS PRN PO UNRELIEVED PAIN Last administered on 09/03/18at 14:21; Start 09/01/18 at 15:15 Info (Non-Icu Electrolyte Protocol) 1 ea PRN DAILY PRN MC SEE COMMENTS; Start 09/02/18 at 09:00 Naloxone HCl (Narcan) 0.1 mg PRN Q2MIN PRN IV ADMIN; Start 09/01/18 at 15:15 Sodium Chloride (Normal Saline Flush) 3 ml QSHIFT PRN IV AFTER MEDS AND BLOOD DRAWS; Start 09/01/18 at 15:15 Sodium Chloride 1,000 ml @ 50 mls/hr Q20H IV Last administered on 09/03/18 23:56; Start 09/01/18 at 18:00; Stop 09/05/18 at 12:32; Status DC Oxycodone/ Acetaminophen (Percocet 5/325) 1 tab PRN Q4HRS PRN PO MILD PAIN, 1ST CHOICE Last administered on 09/06/18 05:32; Start 09/01/18 at 15:15 Oxycodone/ Acetaminophen (Percocet 5/325) 2 tab PRN Q4HRS PRN PO MODERATE PAIN, SEVERE PAIN Last administered on 09/06/18 11:42; Start 09/01/18 at 15:15 Acetaminophen (Tylenol) 650 mg Q8HRS PO Last administered on 09/04/18 06:11; Start 09/01/18 at 22:00; Stop 09/04/18 at 13:39; Status DC Morphine Sulfate (Morphine Sulfate) 2 mg PRN Q1HR PRN IV PAIN Last administered on 09/02/18at 17:58; Start 09/01/18 at 15:15 Naloxone HCl (Narcan) 0.4 mg PRN Q2MIN PRN IV SEE INSTRUCTIONS; Start 09/01/18 at 15:15; Status UNV Sodium Chloride 1,000 ml @ 25 mls/hr Q24H IV ; Start 09/01/18 at 15:14; Status UNV Senna/Docusate Sodium (Senna Plus) 1 tab PRN BID PRN PO CONSTIPATION Last administered on 09/04/18at 08:36; Start 09/01/18 at 15:15 Ondansetron HCl (Zofran) 4 mg PRN Q6HRS PRN IV NAUESA, 1ST CHOICE Last administered on 09/05/18at 16:29; Start 09/01/18 at 15:15 Prochlorperazine Edisylate (Compazine) 5 mg PRN Q6HRS PRN IV N/V, 2nd Choice, MR X1 Last administered on 09/02/18at 08:55; Start 09/01/18 at 15:15 Hydralazine HCl (Apresoline Inj) 5 mg PRN Q4HRS PRN IVP ELEVATED BP, 1st CHOICE; Start 09/01/18 at 15:15 Labetalol HCl (Normodyne Iv Push) 10 mg PRN Q2HR PRN IVP HYPERTENSION, 2nd CHOICE; Start 09/01/18 at 15:15 Piperacillin Sod/ Tazobactam Sod 3.375 gm/Sodium Chloride 50 ml @ 100 mls/hr Q6HRS IV Last administered on 09/06/18at 11:46; Start 09/01/18 at 18:00 Vancomycin HCl (Vanco Per Pharmacy) 1 each PRN DAILY PRN MC SEE COMMENTS Last administered on 09/01/18at 16:40; Start 09/01/18 at 15:15; Stop 09/02/18 at 08:59; Status DC Vancomycin HCl 2 gm/Sodium Chloride 500 ml @ 250 mls/hr Q12H IV Last administered on 09/02/18at 05:48; Start 09/01/18 at 18:00; Stop 09/02/18 at 08:59; Status DC Vancomycin HCl (Vancomycin Trough Level) 1 each 1X ONCE MC ; Start 09/03/18 at 05:30; Stop 09/03/18 at 05:31; Status Cancel Insulin Human Lispro (HumaLOG) 0-7 UNITS TIDWMEALS SQ Last administered on 09/02/18at 18:06; Start 09/02/18 at 08:00; Stop 09/03/18 at 09:10; Status DC Dextrose (Dextrose 50%-Water Syringe) 12.5 gm PRN Q15MIN PRN IV SEE COMMENTS; Start 09/01/18 at 17:45 Insulin Human Lispro (HumaLOG) 5 units 1X ONCE SQ Last administered on 09/01/18at 17:50; Start 09/01/18 at 18:00; Stop 09/01/18 at 18:01; Status DC Daptomycin 760 mg/ Sodium Chloride 50 ml @ 100 mls/hr Q24H IV Last admini stered on 09/06/18at 09:59; Start 09/02/18 at 10:00 Lactobacillus Rhamnosus (Culturelle) 1 cap BID PO Last administered on at 08:30; Start 09/02/18 at 21:00 Ondansetron HCl (Zofran Odt) 4 mg Q4HRS PRN PO NAUSEA/VOMITING; Start 09/02/18 at 11:30 Lidocaine/Sodium Bicarbonate (Buffered Lidocaine 1%) 3 ml STK-MED ONCE .ROUTE ; Start 09/02/18 at 11:57; Stop 09/02/18 at 11:58; Status DC Lidocaine/Sodium Bicarbonate (Buffered Lidocaine 1%) 3 ml 1X ONCE IJ Last administered on 09/02/18 12:15; Start 09/02/18 at 12:15; Stop 09/02/18 at 12:16; Status DC Lorazepam (Ativan Inj) 0.5 mg PRN Q6HRS PRN IV ANXIETY / AGITATION Last admin istered on 09/06/18 11:43; Start 09/02/18 at 13:00 Clotrimazole (Mycelex) 10 mg 5XDAY MM Last administered on 09/06/18 10:21; Start 09/03/18 at 10:00 Insulin Human Lispro (HumaLOG) 0-12 UNITS QIDACHS SQ Last administered on 09/05/18 22:42; Start 09/03/18 at 11:30 Insulin Glargine (Lantus) 10 units QHS SQ Last administered on 09/05/18 22:33; Start 09/03/18 at 21:00 Atorvastatin Calcium (Lipitor) 20 mg QHS PO Last administered on 09/05/18 22:29; Start 09/03/18 at 21:00 Potassium Chloride (Klor-Con) 20 meq 1X ONCE PO Last administered on 09/03/18 12:12; Start 09/03/18 at 09:30; Stop 09/03/18 at 09:31; Status DC Sertraline HCl (Zoloft) 25 mg QHS PO Last administered on 09/05/18 22:29; Start 09/03/18 at 21:00 Metoclopramide HCl (Reglan) 5 mg TIDACHC PO Last administered on 09/06/18 11:42; Start 09/03/18 at 11:30 Magnesium Hydroxide (Milk Of Magnesia) 2,400 mg PRN DAILY PRN PO CONSTIPATION, 2ND CHOICE PO Last administered on 09/04/18 08:37; Start 09/03/18 at 10:15 Bisacodyl (Dulcolax Supp) 10 mg PRN DAILY PRN NM CONSTIPATION; Start 09/03/18 at 10:15 Potassium Chloride (Klor-Con) 10 meq 1X ONCE PO Last administered on 7/20/19at 13:41; Start 09/04/18 at 13:45; Stop 09/04/18 at 13:46; Status DC Active Scripts Active Atorvastatin Calcium 20 Mg Tablet 20 Mg PO QHS 90 Days Clopidogrel (Clopidogrel Bisulfate) 75 Mg Tablet 75 Mg PO DAILYWBKFT 90 Days Lisinopril 5 Mg Tablet 1 Tab PO DAILY Doxycycline Hyclate 100 Mg Capsule 1 Cap PO BID Augmentin 875-125 Tablet (Amoxicillin/Potassium Clav) 1 Each Tablet 1 Tab PO BID Thera-M Tablet (Multivits,Ca,Minerals/Iron/Fa) 1 Each Tablet 1 Tab PO DAILY 30 Days Vitamin C (Ascorbic Acid) 500 Mg Tablet 500 Mg PO BID 30 Days Vitals/I & O Vital Sign - Last 24 Hours 09/05/18 09/05/18 09/05/18 09/05/18 14:51 15:00 18:30 19:00 Temp 97.9 98.2 97.9 98.2 Pulse 80 86 Resp 18 18 B/P (MAP) 151/67 (95) 127/74 (91) Pulse Ox 94 94 96 O2 Delivery Room Air Room Air Room Air Room Air 09/05/18 09/05/18 09/05/18 09/05/18 19:30 20:00 22:35 23:00 Temp 98.9 98.9 Pulse 86 Resp 18 B/P (MAP) 138/71 (93) Pulse Ox 98 O2 Delivery Room Air Room Air Room Air Room Air 09/06/18 09/06/18 09/06/18 09/06/18 03:00 05:32 07:00 08:30 Temp 98.0 98.2 98.0 98.2 Pulse 84 70 70 Resp 18 18 B/P (MAP) 122/64 (83) 139/57 (84) 139/57 Pulse Ox 96 96 O2 Delivery Room Air Room Air Room Air 09/06/18 09/06/18 09/06/18 09:00 11:00 11:42 Temp 97.6 97.6 Pulse 80 Resp 18 B/P (MAP) 140/69 (92) Pulse Ox 97 O2 Delivery Room Air Room Air Room Air Intake and Output 09/05/18 09/05/18 09/06/18 15:00 23:00 07:00 Intake Total 420 ml 120 ml Output Total 600 ml Balance 420 ml -480 ml GIBSONMORENA M MD Sep 06, 2018 12:39
[2018-09-06 15:00] VITALS: BP 141/84
--- NOTE | 2018-09-06 16:59 | NUR ---
Wound Care Wound care follow up for right lateral foot open surgical incision. Pt is [facility] patient. Wound vac dressing changed today. Cleansed wound, Wound vac applied with black foam at 125 mmHg continuous pressure. Pt has surgical incisions to R lower leg and upper leg with occlusive dressing in place. No other wounds noted on full skin inspection. will continue to follow in and outpatient for wound vac dressing changes and wound assessment. Addendum: 09/06/18 at 1722 by FRAN CHILDERS RN Eschar covered wound found on medial right heel. [place]-wound is reddened and fluctuant. Painted with betadine and kerlix.
[2018-09-06 19:35] VITALS: BP 145/82
[2018-09-06] MEDS: ATORVASTATIN CALCIUM 20 MG TABLET PO SCH (21:52)
[2018-09-06] MEDS: SERTRALINE 25 MG TABLET. PO SCH (21:52)
[2018-09-06] MEDS: INSULIN GLARGINE 300 UNITS/3 ML INSULN.PEN. SQ SCH (21:57)
[2018-09-06 23:00] VITALS: BP 137/74
[2018-09-07] MEDS: oxyCODONE/APAP 5/325 1 TAB TABLET PO PRN ×4 (00:01→21:00)
[2018-09-07] MEDS: PIPERACILLIN/TAZOBACTAM 3.375 GM in IV NORMAL SALINE 50ML 50 ML IV SCH ×2 (00:01→06:04)
[2018-09-07 03:10] VITALS: BP 156/75
[2018-09-07] MEDS: CLOTRIMAZOLE 10 MG TROCHE. MM SCH ×5 (06:04→21:54)
[2018-09-07 07:00] VITALS: BP 154/74
[2018-09-07] MEDS: METOCLOPRAMIDE 5 MG TABLET. PO SCH ×4 (07:36→21:00)
[2018-09-07] MEDS: CLOPIDOGREL BISULFATE 75 MG TABLET PO SCH (08:51)
[2018-09-07] MEDS: ASPIRIN ENTERIC COATED 81 MG TABLET.DR. PO SCH (08:51)
[2018-09-07] MEDS: ASCORBIC ACID 500 MG TABLET PO SCH ×2 (08:51→21:00)
[2018-09-07] MEDS: MULTIVITAMIN with MINERAL TABLET. PO SCH (08:51)
[2018-09-07] MEDS: LACTOBACILLUS RHAMNOSUS GG 1 CAPSULE. PO SCH ×2 (08:51→21:00)
[2018-09-07] MEDS: LISINOPRIL 5 MG TABLET. PO SCH (08:59)
[2018-09-07] MEDS: DAPTOmycin (GENERIC) IVPB 760 MG in IV NORMAL SALINE 50ML 50 ML IV SCH (09:01)
[2018-09-07] MEDS: INSULIN LISPRO 300 UNITS/3 ML INSULN.PEN. SQ SCH ×4 (09:10→21:11)
--- NOTE | 2018-09-07 09:47 | PDOC ---
Infectious Disease Note Subjective Subjective Pain controlled + BM Denies F/C/N/V Vital Sign Vital Signs Vital Signs Date Time Temp Pulse Resp B/P (MAP) Pulse Ox O2 Delivery O2 Flow Rate FiO2 09/07/18 08:59 82 131/67 09/07/18 08:58 Room Air 09/07/18 07:00 97.9 16 96 97.9 Physical Exam PHYSICAL EXAM GENERAL: Lying down, alert, NAD HEENT: Oral cavity, pharynx dry NECK: Supple LUNGS: Clear to auscultation bilaterally. HEART: S1, S2. ABDOMEN: Soft, nontender, positive bowel sounds. EXTREMITIES: Right lower extremity incisions well-approx/teto - clean Right foot + edema, wound vac in place. No cyanosis. Rooke boot SKIN: Warm to touch without signs of rash. NEUROLOGIC: Alert, and answers questions appropriately RUE-PICC (09/02) clean Labs Lab Laboratory Tests Test 09/06/18 11:45 09/06/18 16:39 09/06/18 21:38 09/07/18 07:45 Glucose (Fingerstick) 197 mg/dL (70-99) 235 mg/dL (70-99) 175 mg/dL (70-99) 203 mg/dL (70-99) Objective Assessment Right foot nonhealing wound with osteomyelitis, s/p post excisional debridement removing necrotic skin, subcutaneous tissue, muscle, tendon, and a portion of the fifth metatarsal bone, 09/01/2018. h/o CoNS, Peripheral arterial disease, status post bypass, right lower extremity 09/01/2018. Leukocytosis, status post dexamethasone 09/01/2018. Acute kidney injury, better Diabetes. Recent MRSE as mentioned above. History of Strep gallolyticus.; has colonoscopy in the past, Thrush. previous abx and steroids Plan Plan of Care Dapto (09/02) with RAVEN last CK 116 on 09/04 Zosyn for now - (Had been on Doxy and Augmentin prior to admit) Probiotics Anticipating discharge soon Attending Co-Sign The patient was seen and interviewed as well as examined at the bedside. The chart was reviewed. The case was discussed. Agree with the plan of care. EVA HASSAN APRN Sep 07, 2018 09:47 DANIELLE HURTADO MD Sep 07, 2018 11:09
[2018-09-07 11:00] VITALS: BP 140/60
[2018-09-07] MEDS ORDERED: ERTAPENEM 1GM IVPB (GENERIC) 50 ML IV ONE (12:00)
[2018-09-07] MEDS ORDERED: SERT50TA PO (12:23)
[2018-09-07] MEDS ORDERED: ASPI-612 PO (12:23)
[2018-09-07] MEDS ORDERED: INSU100I13 SQ (12:26)
[2018-09-07] MEDS ORDERED: INSU100I11 SQ (12:26)
--- NOTE | 2018-09-07 12:29 | SNU/HH DC ---
DISCHARGE WITH HOME HEALTH DISCHARGE INFORMATION: Discharge Date: Sep 07, 2018 Condition on Discharge: Stable CODE STATUS: Code Status: Full HOME HEALTH: Face to Face: I certify this patient is under my care and that I, or a nurse practitioner or [employer] sales assistant working with me, had a face to face encounter that meets the physician face to face encounter requirements with this patient on []. RN For Eval/Treatment: Yes Physical Therapy For: Evalulation/Treatment Occupational Therapy For: Evaluation/Treatment Pt Meets Homebound Status: Unsteady balance w/ amb,, Limited distance walking POST DISCHARGE ORDERS: Activity Instructions for Disc: Resume previous activity Weight Bearing Status after Di: Touch down weight bearing DIET AFTER DISCHARGE: ADA Wound/Incision Care: Change dressing CHECKS AFTER DISCHARGE: Checks after discharge: Check blood sugar, ac/hs TREATMENT/EQUIPMENT ORDERS: Adaptive Equipment Issued: None Infusion Equipment, home use: PICC Line CERTIFICATION STATEMENT: Certification Statement: Certification Statement: Based on the above finding, I certify that this patient is confined to the home and needs intermittent long-term care, physical therapy and/or speech therapy, or continues to need occupational therapy.~ This patient is under my care, and I have initiated the establishment of the plan of care.~ This patient will be followed by myself or a community physician who will periodically review the plan of care. Home Meds Active Scripts Insulin Lispro (HUMALOG) 100 Unit/1 Ml Insuln.pen, 0 UNITS SQ QIDACHS for DM2 for 30 Days, #1 EACH 9 Refills Prov:MORENA GIBSON MD 09/07/18 Insulin Glargine,Hum.rec.anlog (LANTUS SOLOSTAR) 100 Unit/1 Ml Insuln.pen, 10 UNITS SQ QHS for DM2 for 30 Days, #1 EACH 9 Refills Prov:MORENA GIBSON MD 09/07/18 Sertraline Hcl (ZOLOFT) 50 Mg Tablet, 1 TAB PO DAILY for Deprssion, #90 TAB 2 Refills Prov:MORENA GIBSON MD 09/07/18 Aspirin (ASPIRIN EC) 81 Mg Tablet.dr, 81 MG PO DAILYWBKFT for PAD for 90 Days, #90 TAB.SR Prov:MORENA GIBSON MD 09/07/18 Atorvastatin Calcium (ATORVASTATIN CALCIUM) 20 Mg Tablet, 20 MG PO QHS for HLD for 90 Days, #90 TAB Prov:MORENA GIBSON MD 09/06/18 Clopidogrel Bisulfate (CLOPIDOGREL) 75 Mg Tablet, 75 MG PO DAILYWBKFT for PAD for 90 Days, #90 TAB Prov:MORENA GIBSON MD 09/06/18 Lisinopril (LISINOPRIL) 5 Mg Tablet, 1 TAB PO DAILY for HTN, #30 TAB 30 Refills Prov:MORENA GIBSON MD 07/28/18 Multivits,Ca,Minerals/Iron/Fa (THERA-M TABLET) 1 Each Tablet, 1 TAB PO DAILY for skin care for 30 Days, #30 TAB Prov:MORENA GIBSON MD 07/28/18 Ascorbic Acid (VITAMIN C) 500 Mg Tablet, 500 MG PO BID for skin care for 30 Days, #60 TAB Prov:MORENA GIBSON MD 07/28/18 Discontinued Scripts Doxycycline Hyclate (DOXYCYCLINE HYCLATE) 100 Mg Capsule, 1 CAP PO BID for cellulitis, #28 CAP Prov:MORENA GIBSON MD 07/28/18 Amoxicillin/Potassium Clav (AUGMENTIN 875-125 TABLET) 1 Each Tablet, 1 TAB PO BID for cellulitis, #28 TAB Prov:MORENA GIBSON MD 07/28/18 MORENA GIBSON MD Sep 07, 2018 12:28
--- NOTE | 2018-09-07 13:34 | PDOC ---
Provider Note Provider Note af vss awake and alert right leg incisions intact with no erythema/drainage right foot with VAC dressing in place right foot with strong palpable graft pulse POD #5 Right common femoral artery to posterior tibial artery bypass graft using right leg great saphenous vein and right lateral foot debridement - aspirin and plavix daily - continue wound vac therapy, ok to shower today before wound vac is replaced. - encourage diet and nutritional supplements - encourage ambulation - PT/OT - antibiotics per FRANCISCO SALAS MD Sep 07, 2018 13:34
[2018-09-07 15:00] VITALS: BP 149/71
[2018-09-07] MEDS ORDERED: METO5TAB PO (15:53)
[2018-09-07] MEDS ORDERED: OXYC1TAB15 PO (15:53)
[2018-09-07] MEDS ORDERED: ERTA1VIA4 IJ (15:53)
[2018-09-07] MEDS ORDERED: DAPT350V IV (15:53)
[2018-09-07] MEDS: ONDANSETRON PF 4 MG/2 ML VIAL. IV PRN (16:38)
[2018-09-07 19:00] VITALS: BP 149/71
[2018-09-07] MEDS: SERTRALINE 25 MG TABLET. PO SCH (20:59)
[2018-09-07] MEDS: ATORVASTATIN CALCIUM 20 MG TABLET PO SCH (20:59)
[2018-09-07] MEDS: INSULIN GLARGINE 300 UNITS/3 ML INSULN.PEN. SQ SCH (21:10)
[2018-09-07 23:00] VITALS: BP 137/68
[2018-09-08 02:52] VITALS: BP 152/77
[2018-09-08] MEDS: CLOTRIMAZOLE 10 MG TROCHE. MM SCH ×4 (06:12→17:31)
[2018-09-08 07:00] VITALS: BP 137/61
[2018-09-08] MEDS: oxyCODONE/APAP 5/325 1 TAB TABLET PO PRN ×2 (07:13→13:43)
[2018-09-08] MEDS: INSULIN LISPRO 300 UNITS/3 ML INSULN.PEN. SQ SCH ×3 (07:30→17:31)
[2018-09-08] MEDS: METOCLOPRAMIDE 5 MG TABLET. PO SCH ×3 (07:30→16:30)
[2018-09-08] MEDS: ASPIRIN ENTERIC COATED 81 MG TABLET.DR. PO SCH (08:00)
[2018-09-08] MEDS: CLOPIDOGREL BISULFATE 75 MG TABLET PO SCH (09:00)
[2018-09-08] MEDS: ASCORBIC ACID 500 MG TABLET PO SCH (09:00)
[2018-09-08] MEDS: LACTOBACILLUS RHAMNOSUS GG 1 CAPSULE. PO SCH (09:00)
[2018-09-08] MEDS: LISINOPRIL 5 MG TABLET. PO SCH (09:00)
[2018-09-08] MEDS: MULTIVITAMIN with MINERAL TABLET. PO SCH (09:00)
--- NOTE | 2018-09-08 09:05 | PDOC ---
Provider Note Provider Note Vascular S: Seen and examined in room, father at bedside. Nausea improved today. O: af vss awake and alert right leg incisions intact with no erythema/drainage right foot with VAC dressing in place right foot with strong palpable graft pulse POD #6 Right common femoral artery to posterior tibial artery bypass graft using right leg great saphenous vein and right lateral foot debridement - aspirin and plavix daily - continue wound vac therapy, ok to shower today before wound vac is replaced today. - encourage diet and nutritional supplements - encourage ambulation - PT/OT - antibiotics per NNAMDI PICKERING APRN Sep 08, 2018 09:05
--- NOTE | 2018-09-08 09:19 | PDOC ---
Infectious Disease Note Subjective Subjective pt is feeling good ROS ROS no n/v/d/sob Vital Sign Vital Signs Vital Signs Date Time Temp Pulse Resp B/P (MAP) Pulse Ox O2 Delivery O2 Flow Rate FiO2 09/08/18 09:00 71 137/61 09/08/18 07:40 Room Air 09/08/18 07:00 97.8 16 97 97.8 Physical Exam PHYSICAL EXAM GENERAL: Lying down, alert, NAD HEENT: Oral cavity, pharynx dry NECK: Supple LUNGS: Clear to auscultation bilaterally. HEART: S1, S2. ABDOMEN: Soft, nontender, positive bowel sounds. EXTREMITIES: Right lower extremity incisions well-approx/teto - clean Right foot + edema, wound vac in place. No cyanosis. Rooke boot ,,,, wound seen, clean, bone palpable SKIN: Warm to touch without signs of rash. NEUROLOGIC: Alert, and answers questions appropriately RUE-PICC (09/02) clean Labs Lab Laboratory Tests Test 09/07/18 11:00 09/07/18 16:34 09/07/18 20:43 09/08/18 07:58 Glucose (Fingerstick) 186 mg/dL (70-99) 161 mg/dL (70-99) 171 mg/dL (70-99) 125 mg/dL (70-99) Micro culture not done Objective Assessment Right foot nonhealing wound with osteomyelitis, s/p post excisional debridement removing necrotic skin, subcutaneous tissue, muscle, tendon, and a portion of the fifth metatarsal bone, 09/01/2018. h/o CoNS, Peripheral arterial disease, status post bypass, right lower extremity 09/01/2018. Leukocytosis, status post dexamethasone 09/01/2018. Acute kidney injury, better Diabetes. Recent MRSE as mentioned above. History of Strep gallolyticus.; has colonoscopy in the past, Thrush. previous abx and steroids Plan Plan of Care dapto and invanz for d/c ss to arrange for out pt wound vac side effects and monitoring d/w them f/u with us in 2-3 wks wkly cbc, bun/cr, sed rate/cpk fax to [phone] d/w DANIELLE Mackey MD Sep 08, 2018 09:19
--- NOTE | 2018-09-08 09:26 | SNU/HH DC ---
DISCHARGE WITH HOME HEALTH DISCHARGE INFORMATION: Discharge Date: Sep 08, 2018 Condition on Discharge: Stable CODE STATUS: Code Status: Full HOME HEALTH: Face to Face: I certify this patient is under my care and that I, or a nurse practitioner or lulu teran's assistant hairstylist working with me, had a face to face encounter that meets the physician face to face encounter requirements with this patient on []. RN For Eval/Treatment: Yes Physical Therapy For: Evalulation/Treatment Occupational Therapy For: Evaluation/Treatment Pt Meets Homebound Status: Poor coordination w/ amb., Limited distance walking POST DISCHARGE ORDERS: Activity Instructions for Disc: Resume previous activity Weight Bearing Status after Di: Touch down weight bearing DIET AFTER DISCHARGE: ADA Wound/Incision Care: Change dressing CHECKS AFTER DISCHARGE: Checks after discharge: Check blood sugar, ac/hs TREATMENT/EQUIPMENT ORDERS: Adaptive Equipment Issued: None Infusion Equipment, home use: PICC Line CERTIFICATION STATEMENT: Certification Statement: Certification Statement: Based on the above finding, I certify that this patient is confined to the home and needs intermittent long term care, physical therapy and/or speech therapy, or continues to need occupational therapy.~ This patient is under my care, and I have initiated the establishment of the plan of care.~ This patient will be followed by myself or a community physician who will periodically review the plan of care. Home Meds Active Scripts Metoclopramide Hcl (METOCLOPRAMIDE HCL) 5 Mg Tablet, 5 MG PO TIDACHC for gastrop aresis for 30 Days, #120 TAB Prov:MORENA GIBSON MD 09/07/18 Ertapenem Sodium (Ertapenem) 1 Gm Vial, 1 GM IJ DAILY for osteo for 42 Days, #42 EACH Prov:MORENA GIBSON MD 09/07/18 Daptomycin (Daptomycin) 350 Mg Vial, 760 MG IV DAILY for osteo for 42 Days, #89 EACH Prov:MORENA GIBSON MD 09/07/18 Oxycodone/Apap 5-325 (PERCOCET 5-325 MG TABLET ) 1 Each Tablet, 1 TAB PO PRN Q4HRS PRN for MILD PAIN, 1ST CHOICE for 30 Days, #60 TAB Prov:MORENA GIBSON MD 09/07/18 Insulin Lispro (HUMALOG) 100 Unit/1 Ml Insuln.pen, 0 UNITS SQ QIDACHS for DM2 fo r 30 Days, #1 EACH 9 Refills Prov:MORENA GIBSON MD 09/07/18 Insulin Glargine,Hum.rec.anlog (LANTUS SOLOSTAR) 100 Unit/1 Ml Insuln.pen, 10 UNITS SQ QHS for DM2 for 30 Days, #1 EACH 9 Refills Prov:MORENA GIBSNO MD 09/07/18 Sertraline Hcl (ZOLOFT) 50 Mg Tablet, 1 TAB PO DAILY for Deprssion, #90 TAB 2 Refills Prov:MORENA GIBSON MD 09/07/18 Aspirin (ASPIRIN EC) 81 Mg Tablet.dr, 81 MG PO DAILYWBKFT for PAD for 90 Days, #90 TAB.SR Prov:MORENA GIBSON MD 09/07/18 Atorvastatin Calcium (ATORVASTATIN CALCIUM) 20 Mg Tablet, 20 MG PO QHS for HLD for 90 Days, #90 TAB Prov:MORENA GIBSON MD 09/06/18 Clopidogrel Bisulfate (CLOPIDOGREL) 75 Mg Tablet, 75 MG PO DAILYWBKFT for PAD for 90 Days, #90 TAB Prov:MORENA GIBSON MD 09/06/18 Lisinopril (LISINOPRIL) 5 Mg Tablet, 1 TAB PO DAILY for HTN, #30 TAB 30 Refills Prov:MORENA GIBSON MD 07/28/18 Multivits,Ca,Minerals/Iron/Fa (THERA-M TABLET) 1 Each Tablet, 1 TAB PO DAILY for skin care for 30 Days, #30 TAB Prov:MORENA GIBSON MD 07/28/18 Ascorbic Acid (VITAMIN C) 500 Mg Tablet, 500 MG PO BID for skin care for 30 Days, #60 TAB Prov:MORENA GIBSON MD 07/28/18 Discontinued Scripts Doxycycline Hyclate (DOXYCYCLINE HYCLATE) 100 Mg Capsule, 1 CAP PO BID for cellulitis, #28 CAP Prov:MORENA GIBSON MD 07/28/18 Amoxicillin/Potassium Clav (AUGMENTIN 875-125 TABLET) 1 Each Tablet, 1 TAB PO BID for cellulitis, #28 TAB Prov:MORENA GIBSON MD 07/28/18 MORENA GIBSON MD Sep 08, 2018 09:26
--- NOTE | 2018-09-08 09:28 | SNU/HH DC ---
DISCHARGE ORDERS DISCHARGE INFORMATION: DISCHARGE DATE: Sep 08, 2018 CONDITION ON DISCHARGE: Stable CODE STATUS: Code Status: Full JAIL: SNF STAY <30 DAYS: Yes POST DISCHARGE ORDERS: ACTIVITY ORDERS: Resume previous activity WEIGHT BEARING STATUS: Touch down weight bearing DIET AFTER DISCHARGE: ADA WOUND/INCISION CARE: Change dressing CHECKS AFTER DISCHARGE: CHECKS AFTER DISCHARGE: Check blood sugar, ac/hs TREATMENT/EQUIPMENT ORDERS: ADAPTIVE EQUIPMENT NEEDED: None INFUSION EQUIPMENT NEEDED: PICC Line Physical Therapy For: Evalulation/Treatment Occupational Therapy For: Evaluation/Treatment DISCHARGE MEDICATIONS: Home Meds Active Scripts Metoclopramide Hcl (METOCLOPRAMIDE HCL) 5 Mg Tablet, 5 MG PO TIDACHC for gastroparesis for 30 Days, #120 TAB Prov:MORENA GIBSON MD 09/07/18 Ertapenem Sodium (Ertapenem) 1 Gm Vial, 1 GM IJ DAILY for osteo for 42 Days, #42 EACH Prov:MORENA GIBSON MD 09/07/18 Daptomycin (Daptomycin) 350 Mg Vial, 760 MG IV DAILY for osteo for 42 Days, #89 EACH Prov:MORENA GIBSON MD 09/07/18 Oxycodone/Apap 5-325 (PERCOCET 5-325 MG TABLET ) 1 Each Tablet, 1 TAB PO PRN Q4HRS PRN for MILD PAIN, 1ST CHOICE for 30 Days, #60 TAB Prov:MORENA GIBSON MD 09/07/18 Insulin Lispro (HUMALOG) 100 Unit/1 Ml Insuln.pen, 0 UNITS SQ QIDACHS for DM2 for 30 Days, #1 EACH 9 Refills Prov:MORENA GIBSON MD 09/07/18 Insulin Glargine,Hum.rec.anlog (LANTUS SOLOSTAR) 100 Unit/1 Ml Insuln.pen, 10 UNITS SQ QHS for DM2 for 30 Days, #1 EACH 9 Refills Prov:MORENA GIBSON MD 09/07/18 Sertraline Hcl (ZOLOFT) 50 Mg Tablet, 1 TAB PO DAILY for Deprssion, #90 TAB 2 Refills Prov:MORENA GIBSON MD 09/07/18 Aspirin (ASPIRIN EC) 81 Mg Tablet.dr, 81 MG PO DAILYWBKFT for PAD for 90 Days, #90 TAB.SR Prov:MORENA GIBSON MD 7/23/19 Atorvastatin Calcium (ATORVASTATIN CALCIUM) 20 Mg Tablet, 20 MG PO QHS for HLD for 90 Days, #90 TAB Prov:MORENA GIBSON MD 09/06/18 Clopidogrel Bisulfate (CLOPIDOGREL) 75 Mg Tablet, 75 MG PO DAILYWBKFT for PAD for 90 Days, #90 TAB Prov:MORENA GIBSON MD 09/06/18 Lisinopril (LISINOPRIL) 5 Mg Tablet, 1 TAB PO DAILY for HTN, #30 TAB 30 Refills Prov:MORENA GIBSON MD 07/28/18 Multivits,Ca,Minerals/Iron/Fa (THERA-M TABLET) 1 Each Tablet, 1 TAB PO DAILY for skin care for 30 Days, #30 TAB Prov:MORENA GIBSON MD 07/28/18 Ascorbic Acid (VITAMIN C) 500 Mg Tablet, 500 MG PO BID for skin care for 30 Days, #60 TAB Prov:MORENA GIBSON MD 07/28/18 Discontinued Scripts Doxycycline Hyclate (DOXYCYCLINE HYCLATE) 100 Mg Capsule, 1 CAP PO BID for cellu litis, #28 CAP Prov:MORENA GIBSON MD 07/28/18 Amoxicillin/Potassium Clav (AUGMENTIN 875-125 TABLET) 1 Each Tablet, 1 TAB PO BID for cellulitis, #28 TAB Prov:MORENA GIBSON MD 07/28/18 MORENA GIBSON MD Sep 08, 2018 09:28
[2018-09-08] MEDS: DAPTOmycin (GENERIC) IVPB 760 MG in IV NORMAL SALINE 50ML 50 ML IV SCH (10:11)
[2018-09-08 11:00] VITALS: BP 132/66
--- NOTE | 2018-09-08 11:47 | NUR ---
SS following up with discharge planning. Discharge orders received for home healthcare and outpatient IV antibiotics. SS met with pt and discussed [facility] and agreeable to outpatient IV antibiotics. SS phoned and faxed referral for antibiotics to [facility] in outpatient. Pt to come in for first outpatient appointment on 09/09/2018 at 0800. Pt notified and agreeable. SS phoned and faxed referral to [facility], ; fax [phone]. Pt's RN notified.
[2018-09-08 15:00] VITALS: BP 128/61
[2018-09-08] MEDS ORDERED: PIPE3.375 IV (17:09)
[2018-09-08] MEDS ORDERED: VANC1PIG IV (17:09)
--- NOTE | 2018-09-08 17:10 | SNU/HH DC ---
DISCHARGE ORDERS DISCHARGE INFORMATION: DISCHARGE DATE: Sep 08, 2018 FINAL DIAGNOSIS Peripheral vascular disease status post revascularization right lower extremity vascular ulcer with osteomyelitis right foot CONDITION ON DISCHARGE: Stable CODE STATUS: Code Status: Full MCFP: SNF STAY <30 DAYS: Yes POST DISCHARGE ORDERS: ACTIVITY ORDERS: Resume previous activity WEIGHT BEARING STATUS: Touch down weight bearing DIET AFTER DISCHARGE: ADA WOUND/INCISION CARE: Change dressing CHECKS AFTER DISCHARGE: CHECKS AFTER DISCHARGE: Check blood sugar, ac/hs TREATMENT/EQUIPMENT ORDERS: ADAPTIVE EQUIPMENT NEEDED: None INFUSION EQUIPMENT NEEDED: PICC Line Physical Therapy For: Evalulation/Treatment Occupational Therapy For: Evaluation/Treatment DISCHARGE MEDICATIONS: Home Meds Active Scripts Vancomycin/Water For Inj (Peg) (Vancomycin 1 Gram/200 ml Bag) 1 Gm/200 Ml Piggyback, 1 GM IV Q12HR for osteo for 42 Days, EACH Prov:MORENA GIBSON MD 09/08/18 Piperacillin Sodium/Tazobactam (ZOSYN 3.375 GRAM VIAL) 3.375 Gm Vial, 3.375 GM IV Q6HRS for osteo for 42 Days, #168 EACH Prov:MORENA GIBSON MD 09/08/18 Metoclopramide Hcl (METOCLOPRAMIDE HCL) 5 Mg Tablet, 5 MG PO TIDACHC for gastroparesis for 30 Days, #120 TAB Prov:MORENA GIBSON MD 09/07/18 Oxycodone/Apap 5-325 (PERCOCET 5-325 MG TABLET ) 1 Each Tablet, 1 TAB PO PRN Q4HRS PRN for MILD PAIN, 1ST CHOICE for 30 Days, #60 TAB Prov:MOERNA GIBSON MD 09/07/18 Insulin Lispro (HUMALOG) 100 Unit/1 Ml Insuln.pen, 0 UNITS SQ QIDACHS for DM2 for 30 Days, #1 EACH 9 Refills Prov:MORENA GIBSON MD 09/07/18 Insulin Glargine,Hum.rec.anlog (LANTUS SOLOSTAR) 100 Unit/1 Ml Insuln.pen, 10 UNITS SQ QHS for DM2 for 30 Days, #1 EACH 9 Refills Prov:MORENA GIBSON MD 09/07/18 Sertraline Hcl (ZOLOFT) 50 Mg Tablet, 1 TAB PO DAILY for Deprssion, #90 TAB 2 Refills Prov:MORENA GIBSON MD 09/07/18 Aspirin (ASPIRIN EC) 81 Mg Tablet., 81 MG PO DAILYWBKFT for PAD for 90 Days, #90 TAB.SR Prov:MORENA GIBSON MD 09/07/18 Atorvastatin Calcium (ATORVASTATIN CALCIUM) 20 Mg Tablet, 20 MG PO QHS for HLD for 90 Days, #90 TAB Prov:MORENA GIBSON MD 09/06/18 Clopidogrel Bisulfate (CLOPIDOGREL) 75 Mg Tablet, 75 MG PO DAILYWBKFT for PAD for 90 Days, #90 TAB Prov:MORENA GIBSON MD 09/06/18 Lisinopril (LISINOPRIL) 5 Mg Tablet, 1 TAB PO DAILY for HTN, #30 TAB 30 Refills Prov:MORENA GIBSON MD 07/28/18 Multivits,Ca,Minerals/Iron/Fa (THERA-M TABLET) 1 Each Tablet, 1 TAB PO DAILY for skin care for 30 Days, #30 TAB Prov:MORENA GIBSON MD 07/28/18 Ascorbic Acid (VITAMIN C) 500 Mg Tablet, 500 MG PO BID for skin care for 30 Days, #60 TAB Prov:MORENA GIBSON MD 07/28/18 Discontinued Scripts Doxycycline Hyclate (DOXYCYCLINE HYCLATE) 100 Mg Capsule, 1 CAP PO BID for cellulitis, #28 CAP Prov:MORENA GIBSON MD 07/28/18 Amoxicillin/Potassium Clav (AUGMENTIN 875-125 TABLET) 1 Each Tablet, 1 TAB PO BID for cellulitis, #28 TAB Prov:MORENA GIBSON MD 07/28/18 MORENA GIBSON MD Sep 08, 2018 17:10
[2018-09-08 19:00] VITALS: BP 129/59
--- NOTE | 2018-09-08 20:20 | NUR ---
Patient discharged to [facility] per wheelchair van. Patient's father with him. Report was called to [facility] by the day shift nurse Ceci.
--- NOTE | 2018-09-09 01:06 | DS ---
DATE OF DISCHARGE: 09/08/2018 ADMITTING DIAGNOSIS: Osteomyelitis, right foot. SECONDARY DIAGNOSES: 1. Severe peripheral vascular disease. 2. Type 2 diabetes, out of control. 3. Diabetic gastroparesis. 4. Hypertension. 5. Morbid obesity. 6. History of severe noncompliance. DISMISSAL DIAGNOSES: 1. Status post revascularization of right lower extremity. 2. Vascular and diabetic foot ulcer with osteomyelitis of right foot with wound VAC in place. 3. Type 2 diabetes. 4. Diabetic gastroparesis. 5. Hyperlipidemia. 6. Major depression. 7. Severe protein malnutrition. 8. Morbid obesity. 9. High cholesterol. HISTORY OF PRESENT ILLNESS AND HOSPITAL COURSE: This patient is a 42-year-old male who has a long history of noncompliance with diabetes and has significant peripheral vascular disease and diabetic foot ulcer, complicated by vascular foot ulcer. He was found to have occlusive disease and underwent corrective surgery on the day of admission. The patient had an uncomplicated postoperative course, but required IV antibiotics for suspected osteomyelitis and open wound, stage 4 ulcer to his right foot. He underwent wound care and wound VAC was applied. The patient stabilized postoperatively and plans for discharge to home with home health were made due to insurance issues, the patient benefited and was recommended to proceed with fdc care due to PT and OT modalities as well as prolonged IV antibiotics and wound care. So therefore, the patient did finally agree to proceed to fdc and he was discharged to [facility] with the following medications. DISCHARGE MEDICATIONS: Aspirin 81 mg daily, atorvastatin 20 mg daily, clopidogrel 75 mg daily, Lantus 10 units with meals, Humalog sliding scale as directed, Reglan 5 mg with meals and bedtime, oxycodone 5 in the form of Percocet one q.4 hours p.r.n., piperacillin 37.5 mg q.6h. IV, Zoloft 50 mg daily, vancomycin 1 gram b.i.d. He will continue lisinopril 5 mg daily, multivitamin and vitamin C. DISCHARGE FOLLOWUP: He will be followed per Vascular Surgery, Infectious Disease and myself at [facility]. MORENA GIBSON MD DR: PAO/clau JOB#: [id number] / [id number]
== END 2018-09-08 20:20 | disposition home health service (06) | DRG 853 ==
LOC: OPSVCIP 08:25 → 2 SOUTH 16:06 → 4 NORTH 09-05 14:48
PROVIDERS: ADMIT Surgery Vascular Surgery; ATTEND Family Medicine
PROC: 06BP0ZZ Excision of Right Saphenous Vein, Open Approach (ICD-10-PCS; 2018-09-01)
PROC: 041K09N Bypass Right Femoral Artery to Posterior Tibial Artery with Autologous Venous Tissue, Open Approach (ICD-10-PCS; principal; 2018-09-01 10:15)
PROC: 0QBN0ZZ Excision of Right Metatarsal, Open Approach (ICD-10-PCS; 2018-09-01 10:15)
PROC: 02HV33Z Insertion of Infusion Device into Superior Vena Cava, Percutaneous Approach (ICD-10-PCS; 2018-09-02)
PROC: B5181ZA Fluoroscopy of Superior Vena Cava using Low Osmolar Contrast, Guidance (ICD-10-PCS; 2018-09-02)
PROC: B548ZZA Ultrasonography of Superior Vena Cava, Guidance (ICD-10-PCS; 2018-09-02)
DX: A41.9 Sepsis, unspecified organism (principal); N17.0 Acute kidney failure with tubular necrosis; E43 Unspecified severe protein-calorie malnutrition; E11.52 Type 2 diabetes mellitus with diabetic peripheral angiopathy with gangrene; L03.115 Cellulitis of right lower limb; I70.261 Atherosclerosis of native arteries of extremities with gangrene, right leg; M86.8X7 Other osteomyelitis, ankle and foot; E78.5 Hyperlipidemia, unspecified; K21.9 Gastro-esophageal reflux disease without esophagitis; N18.9 Chronic kidney disease, unspecified; I12.9 Hypertensive chronic kidney disease with stage 1 through stage 4 chronic kidney disease, or unspecified chronic kidney disease; E11.628 Type 2 diabetes mellitus with other skin complications; E11.621 Type 2 diabetes mellitus with foot ulcer; E11.65 Type 2 diabetes mellitus with hyperglycemia; E11.69 Type 2 diabetes mellitus with other specified complication; E11.42 Type 2 diabetes mellitus with diabetic polyneuropathy; E11.22 Type 2 diabetes mellitus with diabetic chronic kidney disease; E11.43 Type 2 diabetes mellitus with diabetic autonomic (poly)neuropathy; L97.519 Non-pressure chronic ulcer of other part of right foot with unspecified severity; E66.01 Morbid (severe) obesity due to excess calories; I83.91 Asymptomatic varicose veins of right lower extremity; K59.00 Constipation, unspecified; G89.29 Other chronic pain; K31.84 Gastroparesis; F32.9 Major depressive disorder, single episode, unspecified; E78.00 Pure hypercholesterolemia, unspecified; B37.9 Candidiasis, unspecified; F17.210 Nicotine dependence, cigarettes, uncomplicated; Z68.34 Body mass index [BMI] 34.0-34.9, adult; Z91.19 Patient's noncompliance with other medical treatment and regimen; Z79.899 Other long term (current) drug therapy
CPT/HCPCS: 36415; 36569; 76937; 77001; 80048; 80053; 82550; 82962; 83735; 84100; 85025; 85027; 85651; 87641; A7015; C1751; C1757; C1892; J0690; J0696; J0780; J0878; J1100; J1335; J1644; J1815; J2001; J2060; J2250; J2270; J2370; J2405; J2440; J2543; J2704; J3010; J3370; J7030; J7040; J7050; J7120; J8597; Q9967; 97116; 97530; A4461

== ENCOUNTER 2019-01-02 09:57 | Emergency (ER) | payer MEDICARE ==
[~2019-01-02] VITALS: Ht 200.7 cm; Wt 132.4 kg
[~2019-01-02 09:57] MED LIST changes: +ASPI-612 PO; +ATOR20TA58 PO; +CLOP75TA PO; +DAPT350V IV; +ERTA1VIA4 IJ; +FURO40TA4 PO; +GLYB2.5T2 PO; -HEPARIN SODIUM 5,000 UNIT in IV NORMAL SALINE 500ML BAG 500 ML IRR ONE; -HYDROmorphone 2 MG/ML VIAL IV PRN; -IV RINGERS,LACTATED 1000ML 1,000 ML IV SCH; +LACT1CAP19 PO; +METO5TAB PO; -MORPHINE SULFATE 2 MG/ML VIAL. IV PRN; -ONDANSETRON PF 4 MG/2 ML VIAL. IV PRN; +PANT40TA77 PO; +PIPE3.375 IV; +POLY17PO28 PO; -PROCHLORPERAZINE 10 MG/2 ML VIAL. IV PRN; +SERT50TA PO; +VANC1PIG IV; -fentaNYL PF VIAL 100 MCG/2 ML VIAL IV PRN
[2019-01-02] MEDS ORDERED: FAMOTIDINE 20 MG/2 ML VIAL IVP ONE (10:15)
[2019-01-02] MEDS ORDERED: IV NORMAL SALINE 1000ML BAG 1,000 ML IV ONE (10:15)
[2019-01-02] MEDS ORDERED: METOCLOPRAMIDE HCL 10 MG/2 ML VIAL. IVP ONE (10:15)
--- NOTE | 2019-01-02 10:19 | PHYS DOC ---
Past Medical History Past Medical History: Asthma, Cancer, Diabetes-Type II, GI Bleed, High Cholesterol, Hypertension, Migraines Additional Past Medical Histor: Osteomyelitis, CHRONIC BACK PAIN, COLON CANCER, NEUROPATHY Past Surgical History: Other Additional Past Surgical Histo: FOOT SX Alcohol Use: None Drug Use: None Adult General HPI HPI Patient is a 43 year old male who presents with yesterday morning began be having mid umbilical abdominal pain that she states is a cramping type pain. Patient states cramping gets worse and worse until he vomits and he feels better. Patient rates his pain currently at a 7.5. He states that this happened before in the past and happens every few months and when he was in the hospital before they have given him Ativan in total he took the pain and the nausea away. Patient states over at [facility] are unable to give him anything through his PICC line and he keeps vomiting up pills there tried to give him. Patient refuses medications this morning. Patient is at [facility] due to diabetic ulcers is receiving antibiotics through PICC line. Patient states yesterday began vomiting and they gave him by mouth Ativan and he continued to vomit and then 3 hours later they gave him another by mouth Ativan and nothing help. Patient states all night he had pain and nausea but was able to not vomiting. Patient states this morning he had about 8 ounces of Gatorade and vomited back up. Patient states he didn't drink yesterday. Review of Systems Review of Systems GI: abdominal pain, nausea, vomiting, constipation, Denies bloody stools or diarrhea [] All other systems were reviewed and found to be within normal limits, except as documented in this note. Current Medications Current Medications Current Medications Medications (Trade) Dose Ordered Sig/Toby Start Time Stop Time Status Last Admin Dose Admin Famotidine (Pepcid Vial) 20 mg 1X ONCE 01/02/19 10:15 01/02/19 10:16 DC 01/02/19 10:43 20 MG Info (CONTRAST GIVEN -- Rx MONITORING) 1 each PRN DAILY PRN 01/02/19 11:00 01/04/19 10:59 Iohexol (Omnipaque 300 Mg/ml) 75 ml 1X ONCE 01/02/19 11:00 01/02/19 11:01 DC 01/02/19 11:15 75 ML Lorazepam (Ativan Inj) 1 mg 1X ONCE 01/02/19 10:15 01/02/19 10:16 DC 01/02/19 10:43 1 MG Metoclopramide HCl (Reglan Vial) 10 mg 1X ONCE 01/02/19 10:15 01/02/19 10:16 DC 01/02/19 10:42 10 MG Sodium Chloride 1,000 ml @ 1,000 mls/hr 1X ONCE 01/02/19 10:15 01/02/19 11:14 DC 01/02/19 10:36 1,000 MLS/HR Allergies Allergies Allergies Coded Allergies Type Severity Reaction Last Updated Verified No Known Drug Allergies 10/27/18 No Physical Exam Physical Exam Constitutional: Well developed, well nourished, no acute distress, non-toxic appearance. [] HENT: Normocephalic, atraumatic, bilateral external ears normal, oropharynx moist, no oral exudates, nose normal. [] Eyes: PERRLA, EOMI, conjunctiva normal, no discharge. [] Neck: Normal range of motion, no tenderness, supple, no stridor. [] Cardiovascular:Heart rate regular rhythm, no murmur [] Lungs & Thorax: Bilateral breath sounds clear to auscultation [] Abdomen: Bowel sounds normal, soft, Mid abdominal tenderness, no masses, no pulsatile masses. [] Skin: Dressed diabetic ulcers. Heal protectors on bilateral lower extremities. Warm, dry, no erythema, no rash. [] Back: No tenderness, no CVA tenderness. [] Extremities: No tenderness, no cyanosis, no clubbing, ROM intact, no edema. [] Neurologic: Alert and oriented X 3, normal motor function, normal sensory functi on, no focal deficits noted. [] Psychologic: Affect normal, judgement normal, mood normal. [] Current Patient Data Vital Signs Vital Signs Date Time Temp Pulse Resp B/P (MAP) Pulse Ox O2 Delivery O2 Flow Rate FiO2 01/02/19 12:28 78 16 140/73 (95) 98 Room Air 01/02/19 10:13 97.6 97.6 Lab Values Laboratory Tests Test 01/02/19 10:15 White Blood Count 9.0 x10^3/uL (4.0-11.0) Red Blood Count 4.20 x10^6/uL (4.30-5.70) L Hemoglobin 11.9 g/dL (13.0-17.5) L Hematocrit 35.0 % (39.0-53.0) L Mean Corpuscular Volume 83 fL (79-100) Mean Corpuscular Hemoglobin 28 pg (25-35) Mean Corpuscular Hemoglobin Concent 34 g/dL (31-37) Red Cell Distribution Width 14.7 % (11.5-14.5) H Platelet Count 310 x10^3/uL (140-400) Neutrophils (%) (Auto) 72 % (31-73) Lymphocytes (%) (Auto) 20 % (24-48) L Monocytes (%) (Auto) 6 % (0-9) Eosinophils (%) (Auto) 1 % (0-3) Basophils (%) (Auto) 1 % (0-3) Neutrophils # (Auto) 6.5 x10^3/uL (1.8-7.7) Lymphocytes # (Auto) 1.8 x10^3/uL (1.0-4.8) Monocytes # (Auto) 0.5 x10^3/uL (0.0-1.1) Eosinophils # (Auto) 0.1 x10^3/uL (0.0-0.7) Basophils # (Auto) 0.1 x10^3/uL (0.0-0.2) Sodium Level 139 mmol/L (136-145) Potassium Level 4.2 mmol/L (3.5-5.1) Chloride Level 98 mmol/L (98-107) Carbon Dioxide Level 30 mmol/L (21-32) Anion Gap 11 (6-14) Blood Urea Nitrogen 22 mg/dL (8-26) Creatinine 1.1 mg/dL (0.7-1.3) Estimated GFR (Cockcroft-Gault) 73.1 BUN/Creatinine Ratio 20 (6-20) Glucose Level 219 mg/dL (70-99) H Calcium Level 9.5 mg/dL (8.5-10.1) Total Bilirubin 0.4 mg/dL (0.2-1.0) Aspartate Amino Transferase (AST) 24 U/L (15-37) Alanine Aminotransferase (ALT) 12 U/L (16-63) L Alkaline Phosphatase 121 U/L (46-116) H Troponin I Quantitative < 0.017 ng/mL (0.000-0.055) Total Protein 7.8 g/dL (6.4-8.2) Albumin 3.1 g/dL (3.4-5.0) L Albumin/Globulin Ratio 0.7 (1.0-1.7) L Lipase 120 U/L (73-393) Laboratory Tests 01/02/19 10:15 Laboratory Tests 01/02/19 10:15 EKG EKG Sinus Rhythm and no STEMI Interpretation Time: [address] Gallardo Radiology/Procedures Radiology/Procedures [] Impressions: [facility] [address] [place] [address] IMAGING REPORT Signed PATIENT: ENRIQUETA WRIGHT ACCOUNT: [id number] : 1975 LOCATION: ER AGE: 43 SEX: M EXAM STATUS: REG ER ORD. PHYSICIAN: SARAH KISER APRN REASON: abd pain, vomiting, constipation PROCEDURE: CT ABD PELV W/ IV CONTRST ONLY Exam performed: CT abdomen and pelvis with contrast HISTORY: Abdominal pain, vomiting and constipation. DATE OF SERVICE: 01/02/2019. COMPARISON: None available TECHNIQUE: Contiguous helical acquisitions are obtained through the abdomen and pelvis during intravenous administration of 75 cc of Omnipaque 300 via sagittal and coronal reformatted images are obtained and reviewed. FINDINGS: Bases are clear. The visualized heart is normal. The liver, spleen, gallbladder and pancreas appear normal. Both adrenal glands and bilateral kidneys are normal in size with symmetric excretion of contrast via both kidneys. There is no hydronephrosis or nephrolithiasis. Mild prominence of a few small bowel loops in the central abdomen. There is diffuse scattered stool throughout the colon. Visualized appendix is grossly normal. The urinary bladder is partially decompressed. Prostate gland, seminal vesicles and rectum appear normal. Sagittal lytic abnormalities seen in the L2 and L3 vertebral bodies. Mild spondylitic changes. IMPRESSION: Scattered stool throughout the colon. Correlate clinically for constipation. Small lytic abnormalities at L2 and L3 vertebral bodies, indeterminate. Nuclear medicine bone scan may be obtained for further evaluation. PQRS Compliance Statement: One or more of the following individualized dose reduction techniques were utilized for this examination: 1. Automated exposure control 2. Adjustment of the mA and/or kV according to patient size 3. Use of iterative reconstruction technique Electronically signed by: Renetta Martinez MD (01/02/2019 11:42 AM) [facility] DICTATED and SIGNED BY: RENETTA MARTINEZ MD DATE: 01/02/19 114 [facility] [address] [place] [address] IMAGING REPORT Signed PATIENT: ENRIQUETA WRIGHT ACCOUNT: [id number] : 1975 LOCATION: ER AGE: 43 SEX: M EXAM STATUS: REG ER ORD. PHYSICIAN: SARAH KISER APRN REASON: vomiting PROCEDURE: PORTABLE CHEST 1V Exam performed: One view chest. Indication: Nausea, vomiting and constipation Date of Service: 01/02/2019 10:18 AM Comparison: One view chest from 12/18/2018. Single AP upright portable view chest findings: Cardiomediastinal silhouette is within limits of normal. Right arm PICC line terminates at the atriocaval junction. No acute infiltrates, effusion or pneumothorax is detected. The bony structures are normal. Impression: No acute cardiopulmonary process is detected. Electronically signed by: Renetta Martinez MD (01/02/2019 11:42 AM) [facility] DICTATED and SIGNED BY: RENETTA MARTINEZ MD DATE: 01/02/19 114 Course & Med Decision Making Course & Med Decision Making Alert and oriented. Speaks in full clear sentences. Patient's wounds were cleaned and dressed by [facility] wound care yesterday. Patient has abdominal tenderness at mid umbilical area. Abdomen is soft and otherwise nontender. Skin pink warm and dry mucous membranes are moist. Patient denies shortness of air, chest pain, dizziness, headache, visual changes, numbness or tingling, dysuria, back pain, syncope, weakness. Patient has a history of diabetes, gastroparesis, vasculitis, asthma, migraine, hypertension, GI bleed, high cholesterol, colon cancer. PERRLA. Lungs are clear to auscultation all lobes. After medications given patient states he is feeling much better and has no pain. Patient has not vomited since he's been in the emergency room. Blood work is unremarkable. The abdomen pelvis shows constipation. Chest xray unremarkable. Patient has been by mouth challenged and has not vomited. Dragon Disclaimer Dragon Disclaimer This electronic medical record was generated, in whole or in part, using a voice recognition dictation system. Departure Departure Impression: Primary Impression: Nausea & vomiting Disposition: 01 HOME, SELF-CARE Condition: STABLE Referrals: MORENA GIBSON MD (PCP) Patient Instructions: Nausea and Vomiting Additional Instructions: Follow up with primary care provider if needed. Scripts Sennosides/Docusate Sodium (SENNOSIDES-DOCUSATE SODIUM TAB) 1 Each Tablet 1 TAB PO BID for 30 Days, #60 TAB 0 Refills STOP IF DIARRHEA OCCURS. Prov: SARAH KISER APRN 01/02/19 Problem Qualifiers Primary Impression: Nausea & vomiting Vomiting type: unspecified Vomiting Intractability: non-intractable Qualified Codes: R11.2 - Nausea with vomiting, unspecified SARAH KISER APRN Jan 02, 2019 10:19
[2019-01-02 10:26] LABS: BASO # 0.1 x10^3/uL (0.0-0.2); BASO % 1 % (0-3); EOS # 0.1 x10^3/uL (0.0-0.7); EOS % 1 % (0-3); HEMOGLOBIN 11.9 g/dL (13.0-17.5); LYMPH # 1.8 x10^3/uL (1.0-4.8); LYMPH % 20 % (24-48); MEAN CORPUSCULAR HEMOGLOBIN 28 pg (25-35); MEAN CORPUSCULAR HGB CONC 34 g/dL (31-37); MEAN CORPUSCULAR VOLUME 83 fL (79-100); MONO # 0.5 x10^3/uL (0.0-1.1); MONO % 6 % (0-9); NEUT # 6.5 x10^3/uL (1.8-7.7); NEUT % 72 % (31-73); PLATELET COUNT 310 x10^3/uL (140-400); RED CELL DISTRIBUTION WIDTH 14.7 % (11.5-14.5)
[2019-01-02 10:42] LABS: CALCIUM 9.5 mg/dL (8.5-10.1); CREATININE 1.1 mg/dL (0.7-1.3); GFR 73.1; POTASSIUM 4.2 mmol/L (3.5-5.1)
[2019-01-02 10:48] LABS: ALBUMIN 3.1 g/dL (3.4-5.0); ALBUMIN/GLOBULIN RATIO 0.7 (1.0-1.7); TOTAL BILIRUBIN 0.4 mg/dL (0.2-1.0); TOTAL PROTEIN 7.8 g/dL (6.4-8.2)
[2019-01-02] MEDS ORDERED: IOHEXOL 300 MG/ML 100ML VIAL. IV ONE ×2 (11:00)
[2019-01-02] MEDS ORDERED: CONTRAST GIVEN. MC PRN (11:00)
--- NOTE | 2019-01-02 11:45 | RAD ---
Exam performed: CT abdomen and pelvis with contrast HISTORY: Abdominal pain, vomiting and constipation. DATE OF SERVICE: 01/02/2019. COMPARISON: None available TECHNIQUE: Contiguous helical acquisitions are obtained through the abdomen and pelvis during intravenous administration of 75 cc of Omnipaque 300 via sagittal and coronal reformatted images are obtained and reviewed. FINDINGS: Bases are clear. The visualized heart is normal. The liver, spleen, gallbladder and pancreas appear normal. Both adrenal glands and bilateral kidneys are normal in size with symmetric excretion of contrast via both kidneys. There is no hydronephrosis or nephrolithiasis. Mild prominence of a few small bowel loops in the central abdomen. There is diffuse scattered stool throughout the colon. Visualized appendix is grossly normal. The urinary bladder is partially decompressed. Prostate gland, seminal vesicles and rectum appear normal. Sagittal lytic abnormalities seen in the L2 and L3 vertebral bodies. Mild spondylitic changes. IMPRESSION: Scattered stool throughout the colon. Correlate clinically for constipation. Small lytic abnormalities at L2 and L3 vertebral bodies, indeterminate. Nuclear medicine bone scan may be obtained for further evaluation. PQRS Compliance Statement: One or more of the following individualized dose reduction techniques were utilized for this examination: 1. Automated exposure control 2. Adjustment of the mA and/or kV according to patient size 3. Use of iterative reconstruction technique Electronically signed by: Renetta Martinez MD (01/02/2019 11:42 AM) [facility]
--- NOTE | 2019-01-02 11:45 | RAD ---
Exam performed: One view chest. Indication: Nausea, vomiting and constipation Date of Service: 01/02/2019 10:18 AM Comparison: One view chest from 12/18/2018. Single AP upright portable view chest findings: Cardiomediastinal silhouette is within limits of normal. Right arm PICC line terminates at the atriocaval junction. No acute infiltrates, effusion or pneumothorax is detected. The bony structures are normal. Impression: No acute cardiopulmonary process is detected. Electronically signed by: Renetta Martinez MD (01/02/2019 11:42 AM) [facility]
[2019-01-02 12:28] VITALS: BP 140/73
[2019-01-02] MEDS ORDERED: SENN1TAB37 PO (12:36)
--- NOTE | 2019-01-03 06:51 | EKG ---
[facility] [address] [place] [address] Test Date: 2019-01-02 Test Time: 10:28:24 Pat Name: ENRIQUETA WRIGHT Department: Room: Gender: M [employer] Business Systems Analyst: : 1975 Requested By: SARAH KISER Order Number: [id number] Reading MD: Measurements Intervals Brick Rate: 88 P: 28 NE: 140 QRS: 20 QRSD: 88 T: 37 QT: 366 QTc: 446 Interpretive Statements SINUS RHYTHM ATRIAL PREMATURE COMPLEX(ES) OTHERWISE NORMAL ECG RI6.01 No previous ECG available for comparison
== END 2019-01-02 12:40 | disposition home or self-care (01) ==
LOC: ER 09:57
DX: R11.2 Nausea with vomiting, unspecified (principal); R10.33 Periumbilical pain; K59.00 Constipation, unspecified; J45.909 Unspecified asthma, uncomplicated; E78.00 Pure hypercholesterolemia, unspecified; I10 Essential (primary) hypertension; G43.909 Migraine, unspecified, not intractable, without status migrainosus; G89.29 Other chronic pain; E11.40 Type 2 diabetes mellitus with diabetic neuropathy, unspecified
CPT/HCPCS: 36415; 71045; 74177; 80053; 83690; 84484; 85025; 93005; 96361; 96374; 96375; 99285; J2060; J2765; J3490; J7030; Q9967

== ENCOUNTER → 2019-02-21 | Outpatient (CLI) | payer MEDICARE ==
[2019-02-01 11:09] VITALS: BP 110/68
[~2019-02-21] MED LIST changes: +SENN1TAB37 PO
== END | disposition home or self-care (01) ==
LOC: LAB 09:00
PROVIDERS: ATTEND Internal Medicine Infectious Disease
DX: A49.01 Methicillin susceptible Staphylococcus aureus infection, unspecified site (principal)
CPT/HCPCS: 36415; 87040

== ENCOUNTER → 2019-06-17 | Outpatient (CLI) | payer MEDICARE ==
[2019-02-01 11:09] VITALS: BP 110/68
[~2019-06-17] MED LIST changes: -ASCO500T2 PO; +ASCO500T4 PO
[2019-06-17 11:36] LABS: BASO # 0.1 x10^3/uL (0.0-0.2); BASO % 1 % (0-3); EOS # 0.3 x10^3/uL (0.0-0.7); EOS % 3 % (0-3); HEMATOCRIT 43.8 % (39.0-53.0); LYMPH # 2.2 x10^3/uL (1.0-4.8); LYMPH % 22 % (24-48); MEAN CORPUSCULAR HEMOGLOBIN 29 pg (25-35); MEAN CORPUSCULAR HGB CONC 34 g/dL (31-37); MEAN CORPUSCULAR VOLUME 86 fL (79-100); MONO # 0.7 x10^3/uL (0.0-1.1); MONO % 7 % (0-9); NEUT # 6.7 x10^3/uL (1.8-7.7); NEUT % 68 % (31-73); PLATELET COUNT 278 x10^3/uL (140-400); RED CELL DISTRIBUTION WIDTH 13.8 % (11.5-14.5); WHITE BLOOD COUNT 9.9 x10^3/uL (4.0-11.0)
[2019-06-17 11:48] LABS: CALCIUM 9.3 mg/dL (8.5-10.1); CREATININE 1.3 mg/dL (0.7-1.3); GFR 60.2; POTASSIUM 4.2 mmol/L (3.5-5.1)
--- NOTE | 2019-06-17 14:10 | RAD ---
Right foot 3 views: Reason for examination: Nonhealing wound of the right foot. Comparison is made to previous studies dated 12/17/2018 and 07/23/2018. There are chronic deformities at the distal fourth metatarsal bone and the mid to distal fifth metatarsal bone which are stable. There appears to be a fusion at the fifth metatarsophalangeal joint. No acute site of fracture or dislocation are seen. The bone density is normal. No abnormal periosteal reaction is evident. There appear to be some chronic soft tissue changes laterally at the mid foot which may represent the area of the nonhealing wound. IMPRESSION: Soft tissue changes at the lateral midfoot probably reflecting air soft tissue ulceration. Chronic changes at the fourth and fifth metatarsal bones. No acute bony abnormality evident. Electronically signed by: Shanna Michaels MD (06/17/2019 2:07 PM) [id number]
== END | disposition home or self-care (01) ==
LOC: LAB 10:46
PROVIDERS: ATTEND Preventive Medicine Undersea and Hyperbaric Medicine
DX: E11.621 Type 2 diabetes mellitus with foot ulcer (principal); S91.301A Unspecified open wound, right foot, initial encounter; X58.XXXA Exposure to other specified factors, initial encounter; Y93.89 Activity, other specified; Y92.89 Other specified places as the place of occurrence of the external cause; Y99.8 Other external cause status
CPT/HCPCS: 36415; 73630; 80048; 85025; 85651

== ENCOUNTER → 2019-11-08 | Outpatient (CLI) | payer MEDICARE ==
[2019-02-01 11:09] VITALS: BP 110/68
[~2019-11-08] MED LIST changes: -ASPI-612 PO; +ASPI-886 PO; +GADOTERATE 7.5 MMOL/15ML VIAL. IVP ONE
--- NOTE | 2019-11-08 14:56 | RAD ---
EXAMINATION: MRI RIGHT FOOT WITH AND WITHOUT IV CONTRAST CLINICAL HISTORY: Nonhealing ulcer right lateral foot TECHNIQUE: Multiplanar multisequential images obtained through the forefoot with and without intravenous contrast. - Contrast: Dotarem 27 mL IV COMPARISON: Right foot radiographs 06/17/2019, MRI right foot 07/24/2018 FINDINGS: Evaluation limited by prominent motion artifact on multiple sequences. Chronic deformity of the fourth and fifth metatarsals, similar to prior studies. Mild cutaneous irregularity along the lateral midfoot, compatible with reported ulcer, with confluent intermediate T1 signal in the underlying soft tissues abutting the fifth metatarsal base. No soft tissue findings similar but more pronounced compared to prior study with new T1 hypointensity and corresponding T2 hyperintensity in the proximal to mid fifth metatarsal compatible with osteomyelitis. Additional soft tissue defect in the lateral forefoot at the level of the fifth metatarsal head without signal changes in the underlying soft tissues, similar to prior study. May represent an additional ulcer or postsurgical changes. Mild subcutaneous edema along the dorsal and lateral foot. No organized soft tissue fluid collection to suggest an abscess or evidence of soft tissue emphysema. No significant joint effusion. Diffuse fatty atrophy of the intrinsic foot musculature. Flexor and extensor tendons grossly unremarkable. Plantar aponeurosis within normal limits. No evidence of acute fracture or suspicious marrow replacing process in the remainder of the foot. IMPRESSION: Chronic ulcer in the lateral midfoot with reactive/phlegmonous change in the underlying soft tissues and osteomyelitis in the subjacent proximal to mid fifth metatarsal. No abscess. Additional nonacute findings as described. Electronically signed by: Av Hull DO (11/08/2019 2:53 PM) [id number]
== END | disposition home or self-care (01) ==
LOC: MRI 11:10
PROVIDERS: ATTEND Emergency Medicine Undersea and Hyperbaric Medicine
DX: L97.519 Non-pressure chronic ulcer of other part of right foot with unspecified severity (principal); M86.8X7 Other osteomyelitis, ankle and foot; M21.6X1 Other acquired deformities of right foot
CPT/HCPCS: 73720; A9575

== ENCOUNTER → 2020-01-06 | Outpatient (CLI) | payer MEDICARE ==
[2019-02-01 11:09] VITALS: BP 110/68
[~2020-01-06] MED LIST changes: +AMOX1TAB11 PO; +ASCO500C PO; -GADOTERATE 7.5 MMOL/15ML VIAL. IVP ONE; +GLYB5TAB3 PO; +HYDR-3164 PO
== END ==
LOC: LAB 13:18
PROVIDERS: ATTEND Surgery
DX: Z01.812 Encounter for preprocedural laboratory examination (principal); Z20.828 Contact with and (suspected) exposure to other viral communicable diseases
CPT/HCPCS: U0003

== ENCOUNTER 2020-01-11 08:59 | Day surgery (SDC) | payer MEDICARE ==
[~2020-01-11] VITALS: Ht 200.7 cm; Wt 136.1 kg
[~2020-01-11 08:59] MED LIST changes: -AMOX1TAB11 PO; +BUPIVACAINE MPF 0.25% 30 ML VIAL. ONE; -HYDR-3164 PO; +HYDROmorphone 2 MG/ML VIAL IV PRN; +IV RINGERS,LACTATED 1000ML 1,000 ML IV SCH; +MORPHINE SULFATE 2 MG/ML VIAL. IV PRN; +ONDANSETRON PF 4 MG/2 ML VIAL. IV PRN; +PROCHLORPERAZINE 10 MG/2 ML VIAL. IV PRN; +fentaNYL PF VIAL 100 MCG/2 ML VIAL IV PRN; +silver sulfADIAZINE 1% CREAM 25GM TUBE. TP ONE
[2020-01-11] MEDS ORDERED: INSULIN LISPRO 100 UNIT/ML 3ML VIAL for OP,RR ONLY. SQ PRN (09:00)
[2020-01-11] MEDS ORDERED: LIDOCAINE 2% PF 5 ML VIAL. ONE (09:21)
[2020-01-11] MEDS ORDERED: PROPOFOL 10 MG/ML (20ML) VIAL. IV ONE (09:21)
[2020-01-11] MEDS ORDERED: fentaNYL PF VIAL 100 MCG/2 ML VIAL ONE (09:21)
[2020-01-11] MEDS ORDERED: AMOX1TAB11 PO (09:25)
[2020-01-11 09:43] LABS: BASO # 0.1 x10^3/uL (0.0-0.2); BASO % 1 % (0-3); EOS # 0.2 x10^3/uL (0.0-0.7); EOS % 2 % (0-3); HEMATOCRIT 39.7 % (39.0-53.0); HEMOGLOBIN 13.8 g/dL (13.0-17.5); LYMPH # 2.4 x10^3/uL (1.0-4.8); LYMPH % 25 % (24-48); MEAN CORPUSCULAR HEMOGLOBIN 30 pg (25-35); MEAN CORPUSCULAR HGB CONC 35 g/dL (31-37); MEAN CORPUSCULAR VOLUME 86 fL (79-100); MONO # 0.6 x10^3/uL (0.0-1.1); MONO % 7 % (0-9); NEUT # 6.2 x10^3/uL (1.8-7.7); NEUT % 65 % (31-73); PLATELET COUNT 283 x10^3/uL (140-400); RED BLOOD COUNT 4.62 x10^6/uL (4.30-5.70); RED CELL DISTRIBUTION WIDTH 12.9 % (11.5-14.5); WHITE BLOOD COUNT 9.6 x10^3/uL (4.0-11.0)
[2020-01-11 09:49] LABS: CREATININE 1.2 mg/dL (0.7-1.3); GFR 65.8; POTASSIUM 3.6 mmol/L (3.5-5.1)
[2020-01-11] MEDS ORDERED: ceFAZolin SODIUM IV Push 1 GM VIAL. IVP ONE (10:50)
[2020-01-11] MEDS ORDERED: ONDANSETRON PF 4 MG/2 ML VIAL. ONE (10:54)
[2020-01-11] MEDS ORDERED: PHENYLEPHRINE in 0.9% NACL PF 1 MG/10 ML SYRINGE. IV ONE (11:03)
[2020-01-11 12:08] VITALS: BP 124/71
--- NOTE | 2020-01-11 12:16 | PDOC ---
BRIEF OPERATIVE NOTE Date: Jan 11, 2020 Pre-Op Diagnosis Right foot wound Post-Op Diagnosis Same Procedure Performed Right foot wound debridement, primary closure Surgeon Kuldeep Osborne MD Certified Wellness Program Coordinator None Anesthesia Type: MAC Blood Loss Minimal Specimens Obtained Bone culture Findings Good bleeding Complications None Operative Note See dictated op note MJ NULL Jan 11, 2020 12:16
[2020-01-11] MEDS ORDERED: HYDR-3164 PO (12:27)
[2020-01-11] MEDS ORDERED: SEVOFLURANE 31 TO 60 MINUTES. IH ONE (12:38)
--- NOTE | 2020-01-11 13:54 | OP ---
DATE OF SURGERY: 01/11/2020 PREOPERATIVE DIAGNOSES: 1. Diabetes with Charcot deformity. 2. 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 POSTOPERATIVE DIAGNOSES: 1. Diabetes with Charcot deformity. 2. 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 OPERATION PERFORMED: Partial excision of the right fifth metatarsal with excisional wound debridement measuring 6 cm in length. SURGEON: Kuldeep Osborne MD. ANESTHESIA: General. INDICATIONS: This is a diabetic, who has developed a plantar ulcer on the lateral aspect of the fifth metatarsal. This has been a chronic wound draining for some time and not healing and it is suspected that the metatarsal shaft was infected and the cause for nonhealing. The operation, risks, and benefits were explained to the patient in detail. He understood and wished to proceed. OPERATIVE FINDINGS: The metatarsal shaft was involved the wound. The wound tracked directly to that. He had partial resection of the metatarsal to allow for removal of all of the suspected infected material. The wound bled very well. The wound on the surface was excised and primary closure was accomplished. DESCRIPTION OF PROCEDURE: The right foot was prepped and draped in the usual manner. The patient received 3 grams of IV antibiotics and a timeout was called. The lateral wound was excised with a long elliptical 6 cm long incision. The incision was carried down to the metatarsal shaft, which was identified easily. There was excellent bleeding from the skin and subcutaneous tissues. The metatarsal shaft was dissected anteriorly and posteriorly and then partial resection carried out with a rongeur. A section of this bone was sent to pathology and to microbiology. Following this, all suspected nonviable or infected tissue was excised circumferentially with a scalpel. Following excisional debridement, the wound was copiously irrigated and then closed primarily with interrupted 3-0 nylon sutures. A sterile compression dressing was applied and the patient was taken to the recovery room in satisfactory condition. ESTIMATED BLOOD LOSS: 50 mL. DRAINS: None. KULDEEP OSBORNE MD DR: JORDAN/clau JOB#: [id number] / [id number]
== END 2020-01-11 12:45 | disposition home or self-care (01) ==
LOC: SURG 08:59
PROVIDERS: ATTEND Surgery
DX: M14.671 Charcot's joint, right ankle and foot (principal); S91.301D Unspecified open wound, right foot, subsequent encounter; E78.00 Pure hypercholesterolemia, unspecified; M19.90 Unspecified osteoarthritis, unspecified site; I12.9 Hypertensive chronic kidney disease with stage 1 through stage 4 chronic kidney disease, or unspecified chronic kidney disease; E11.22 Type 2 diabetes mellitus with diabetic chronic kidney disease; E11.42 Type 2 diabetes mellitus with diabetic polyneuropathy; N18.2 Chronic kidney disease, stage 2 (mild); F41.9 Anxiety disorder, unspecified; F32.9 Major depressive disorder, single episode, unspecified; E66.9 Obesity, unspecified; F17.210 Nicotine dependence, cigarettes, uncomplicated; J45.909 Unspecified asthma, uncomplicated; L97.828 Non-pressure chronic ulcer of other part of left lower leg with other specified severity; Z79.82 Long term (current) use of aspirin; Z79.84 Long term (current) use of oral hypoglycemic drugs; Z79.899 Other long term (current) drug therapy; Z98.890 Other specified postprocedural states; Z68.33 Body mass index [BMI] 33.0-33.9, adult; Z82.49 Family history of ischemic heart disease and other diseases of the circulatory system; Z83.3 Family history of diabetes mellitus; X58.XXXD Exposure to other specified factors, subsequent encounter
CPT/HCPCS: 11044; 36415; 80048; 82962; 85025; 87071; 87075; 87176; A4461; J0690; J2370; J2405; J2704; J3010; J3490; J7120

== ENCOUNTER 2020-05-22 06:48 | Emergency (ER) | payer MEDICARE ==
[~2020-05-22] VITALS: Ht 200.7 cm; Wt 150.0 kg
[~2020-05-22 06:48] MED LIST changes: +AMOX1TAB11 PO; -BUPIVACAINE MPF 0.25% 30 ML VIAL. ONE; +HYDR-3164 PO; -HYDROmorphone 2 MG/ML VIAL IV PRN; -IV RINGERS,LACTATED 1000ML 1,000 ML IV SCH; -LISI-338 PO; +LISI-517 PO; -MORPHINE SULFATE 2 MG/ML VIAL. IV PRN; -MULT1TAB90 PO; +MULT1TAB92 PO; -ONDANSETRON PF 4 MG/2 ML VIAL. IV PRN; +PIOG15TA42 PO; -POLY17PO28 PO; +POLY17PO52 PO; -PROCHLORPERAZINE 10 MG/2 ML VIAL. IV PRN; -fentaNYL PF VIAL 100 MCG/2 ML VIAL IV PRN; -silver sulfADIAZINE 1% CREAM 25GM TUBE. TP ONE
[2020-05-22] MEDS ORDERED: ONDANSETRON PF 4 MG/2 ML VIAL. IVP ONE (07:00)
[2020-05-22] MEDS ORDERED: IV NORMAL SALINE 1000ML BAG 1,000 ML IV ONE (07:00)
[2020-05-22] MEDS ORDERED: HALOPERIDOL LACTATE 5 MG/ML VIAL. IVP ONE (07:30)
--- NOTE | 2020-05-22 07:30 | PHYS DOC ---
Past Medical History Past Medical History: Asthma, Cancer, Diabetes-Type II, GI Bleed, High Ch olesterol, Hypertension, Migraines Additional Past Medical Histor: Osteomyelitis, CHRONIC BACK PAIN, COLON CANCER, NEUROPATHY Past Surgical History: Other Additional Past Surgical Histo: FOOT SX, FEMPOP bypass,tiffanie rectal abscess,scrotum abscess Smoking Status: Current Every Day Smoker Alcohol Use: None Drug Use: None General Adult EDM: Chief Complaint: ABDOMINAL PAIN HPI: HPI: Patient is a 44 year old male who presented to ER due to nausea vomiting. Patient was just discharged from [facility] yesterday after he was admitted there for 3 days due to nausea vomiting and abdominal pain. Patient has history of diabetic gastroparesis, he would have episodes of intractable nausea vomiting after taking narcotics. Patient has been in and out of this hospital and [facility] for various problems including perirectal abscess, buttock abscess, scrotal abscess. Patient has been on multiple different rounds of antibiotics between the 2 hospitals. Patient denies any abdominal pain at this time. Patient denies any chest pain, no trouble breathing, no cough or fever. Review of Systems: Review of Systems: Constitutional: Denies fever or chills. [] Eyes: Denies change in visual acuity. [] HENT: Denies nasal congestion or sore throat. [] Respiratory: Denies cough or shortness of breath. [] Cardiovascular: Denies chest pain or edema. [] GI: Denies abdominal pain, positive for nausea vomiting, no diarrhea. : Denies dysuria. [] Musculoskeletal: Denies back pain or joint pain. [] Integument: Denies rash. [] Neurologic: Denies headache, focal weakness or sensory changes. [] Endocrine: Denies polyuria or polydipsia. [] Lymphatic: Denies swollen glands. [] Psychiatric: Denies depression or anxiety. [] Heart Score: C/O Chest Pain: N/A Risk Factors: Risk Factors: DM, Current or recent (<one month) smoker, HTN, HLP, family history of CAD, obesity. Risk Scores: Score 0 - 3: 2.5% MACE over next 6 weeks - Discharge Home Score 4 - 6: 20.3% MACE over next 6 weeks - Admit for Clinical Observation Score 7 - 10: 72.7% MACE over next 6 weeks - Early Invasive Strategies Current Medications: Current Medications Medications (Trade) Dose Ordered Sig/Toby Start Time Stop Time Status Last Admin Dose Admin Haloperidol Lactate (Haldol Inj) 5 mg 1X ONCE 05/22/20 07:30 05/22/20 07:31 Lorazepam (Ativan Inj) 1 mg 1X ONCE 05/22/20 07:30 05/22/20 07:31 Ondansetron HCl (Zofran) 4 mg 1X ONCE 05/22/20 07:00 05/22/20 07:01 DC 05/22/20 07:25 4 MG Sodium Chloride 1,000 ml @ 1,000 mls/hr 1X ONCE 05/22/20 07:00 05/22/20 07:59 05/22/20 07:26 1,000 MLS/HR Allergies: Allergies: Allergies Coded Allergies Type Severity Reaction Last Updated Verified No Known Drug Allergies 01/11/20 No Physical Exam: PE: Constitutional: Well developed, well nourished, no acute distress, non-toxic appearance. obese HENT: Normocephalic, atraumatic, bilateral external ears normal, oropharynx moist, no oral exudates, nose normal. [] Eyes: PERRLA, EOMI, conjunctiva normal, no discharge. [] Neck: Normal range of motion, no tenderness, supple, no stridor. [] Cardiovascular:Heart rate regular rhythm, no murmur [] Lungs & Thorax: Bilateral breath sounds clear to auscultation [] Abdomen: Bowel sounds normal, soft, no tenderness, no masses, no pulsatile masses. [] Skin: Warm, dry, no erythema, no rash. Pale. Back: No tenderness, no CVA tenderness. [] Extremities: No tenderness, no cyanosis, no clubbing, ROM intact, no edema. [] Neurologic: Alert and oriented X 3, normal motor function, normal sensory function, no focal deficits noted. [] Psychologic: Affect normal, judgement normal, mood normal. [] Current Patient Data: Labs: Laboratory Tests Test 05/22/20 07:15 White Blood Count 8.1 x10^3/uL Red Blood Count 4.04 x10^6/uL Hemoglobin 11.2 g/dL Hematocrit 33.4 % Mean Corpuscular Volume 83 fL Mean Corpuscular Hemoglobin 28 pg Mean Corpuscular Hemoglobin Concent 34 g/dL Red Cell Distribution Width 14.7 % Platelet Count 243 x10^3/uL Neutrophils (%) (Auto) 79 % Lymphocytes (%) (Auto) 13 % Monocytes (%) (Auto) 7 % Eosinophils (%) (Auto) 1 % Basophils (%) (Auto) 1 % Neutrophils # (Auto) 6.4 x10^3/uL Lymphocytes # (Auto) 1.0 x10^3/uL Monocytes # (Auto) 0.5 x10^3/uL Eosinophils # (Auto) 0.1 x10^3/uL Basophils # (Auto) 0.0 x10^3/uL Sodium Level 140 mmol/L Potassium Level 3.2 mmol/L Chloride Level 102 mmol/L Carbon Dioxide Level 29 mmol/L Anion Gap 9 Blood Urea Nitrogen 12 mg/dL Creatinine 2.1 mg/dL Estimated GFR (Cockcroft-Gault) 34.5 BUN/Creatinine Ratio 6 Glucose Level 182 mg/dL Calcium Level 9.0 mg/dL Magnesium Level 1.7 mg/dL Total Bilirubin 0.5 mg/dL Aspartate Amino Transf (AST/SGOT) 28 U/L Alanine Aminotransferase (ALT/SGPT) 19 U/L Alkaline Phosphatase 87 U/L Total Protein 7.7 g/dL Albumin 2.7 g/dL Albumin/Globulin Ratio 0.5 Lipase 36 U/L Acetone Level Neg Current Medications Medications (Trade) Dose Ordered Sig/Toby Route PRN Reason Start Time Stop Time Status Last Admin Dose Admin Sodium Chloride 1,000 ml @ 1,000 mls/hr 1X ONCE IV 05/22/20 07:00 05/22/20 07:59 DC 05/22/20 07:26 Ondansetron HCl (Zofran) 4 mg 1X ONCE IVP 05/22/20 07:00 05/22/20 07:01 DC 05/22/20 07:25 Lorazepam (Ativan Inj) 1 mg 1X ONCE IVP 05/22/20 07:30 05/22/20 07:31 DC 05/22/20 07:38 Haloperidol Lactate (Haldol Inj) 5 mg 1X ONCE IVP 05/22/20 07:30 05/22/20 07:31 DC 05/22/20 07:38 Potassium Phosphate (K-Phos Original) 500 mg 1X STAT PO 05/22/20 09:38 05/22/20 09:40 DC 05/22/20 10:22 Vital Signs: Vital Signs Date Time Temp Pulse Resp B/P (MAP) Pulse Ox O2 Delivery O2 Flow Rate FiO2 05/22/20 07:20 98.2 99 18 155/82 (106) 96 Room Air 98.2 EKG: EKG: [] Radiology/Procedures: Radiology/Procedures: [][facility] [address] [place] [address] IMAGING REPORT Signed PATIENT: ENRIQUETA WRIGHT ACCOUNT: [id number] : 1975 LOCATION: ER AGE: 44 SEX: M EXAM STATUS: REG ER ORD. PHYSICIAN: RODGER CLEVELAND DO REASON: nausea, vomiting, abdominal pain PROCEDURE: ACUTE ABDOMEN SERIES EXAM: Frontal view of the chest, AP views of the abdomen in upright and supine positions. CLINICAL INDICATION: Reason: nausea, vomiting, abdominal pain / Spl. Instructions: / History: COMPARISON: 01/02/2019. FINDINGS: The heart is not enlarged. Mediastinal/hilar contours are stable. New parenchymal opacities in the infrahilar right lung and bilateral lung bases. No pleural effusion or pneumothorax. No abnormal small or large bowel dilatation. Mild colonic stool content. No abnormal soft tissue mass effect. No suspicious calcifications are seen. No free intraperitoneal gas. IMPRESSION: 1. New parenchymal opacities in the infrahilar right lung and bilateral lung bases may represent consolidative process pneumonia or atelectasis. Electronically signed by: Collins Morales MD (05/22/2020 8:28 AM) [id number] DICTATED and SIGNED BY: COLLINS MORALES MD DATE: 05/22/20 [id number] 0 Course & Med Decision Making: Course & Med Decision Making Pertinent Labs and Imaging studies reviewed. (See chart for details) Patient is a 44-year-old male who was evaluated in ER due to nausea vomiting. Patient was given IV fluid, IV Ativan and Haldol, patient felt much better, patient was sleeping in the room when this physician came back to discuss his lab results. Patient will be discharged home with prescription for Phenergan suppository. Patient will need to see her family physician for outpatient gabi luation and treatment. Patient is amenable to plan of care for Dragon Disclaimer: Kenia Disclaimer: This electronic medical record was generated, in whole or in part, using a voice recognition dictation system. Departure Departure Impression: Primary Impression: Nausea & vomiting Additional Impression: Diabetic gastroparesis Disposition: 01 DC HOME SELF CARE/HOMELESS Condition: IMPROVED Referrals: MORENA GIBSON MD (PCP) Please follow up with your doctor this week Patient Instructions: Gastroparesis, Nausea and Vomiting Additional Instructions: Thank you for visiting our Emergency Department. We appreciate you trusting us with your care. If any additional problems come up don't hesitate to return to visit us. Please follow up with your primary care provider so they can plan additional care if needed and know about the problem that you had. If symptoms worsen come back to the Emergency Department. Any concerning symptoms that start such as chest pain, shortness of air, weakness or numbness on one side of the body, running high fevers or any other concerning symptoms return to the ER. Scripts Promethazine HCl (Promethazine HCl) 50 Mg Supp.rect 50 MG RC Q8HRS PRN for NAUSEA, #12 SUPP.RECT Prov: RODGER CLEVELAND DO 05/22/20 RODGER CLEVELAND DO May 22, 2020 07:30
[2020-05-22 07:37] LABS: BASO % 1 % (0-3); EOS # 0.1 x10^3/uL (0.0-0.7); EOS % 1 % (0-3); HEMATOCRIT 33.4 % (39.0-53.0); HEMOGLOBIN 11.2 g/dL (13.0-17.5); LYMPH % 13 % (24-48); MEAN CORPUSCULAR HEMOGLOBIN 28 pg (25-35); MEAN CORPUSCULAR HGB CONC 34 g/dL (31-37); MEAN CORPUSCULAR VOLUME 83 fL (79-100); MONO # 0.5 x10^3/uL (0.0-1.1); MONO % 7 % (0-9); NEUT # 6.4 x10^3/uL (1.8-7.7); NEUT % 79 % (31-73); PLATELET COUNT 243 x10^3/uL (140-400); RED BLOOD COUNT 4.04 x10^6/uL (4.30-5.70); RED CELL DISTRIBUTION WIDTH 14.7 % (11.5-14.5); WHITE BLOOD COUNT 8.1 x10^3/uL (4.0-11.0)
[2020-05-22 07:48] LABS: CREATININE 2.1 mg/dL (0.7-1.3); GFR 34.5; POTASSIUM 3.2 mmol/L (3.5-5.1)
[2020-05-22 07:53] LABS: ALBUMIN 2.7 g/dL (3.4-5.0); ALBUMIN/GLOBULIN RATIO 0.5 (1.0-1.7); MAGNESIUM 1.7 mg/dL (1.8-2.4); TOTAL BILIRUBIN 0.5 mg/dL (0.2-1.0); TOTAL PROTEIN 7.7 g/dL (6.4-8.2)
--- NOTE | 2020-05-22 08:31 | RAD ---
EXAM: Frontal view of the chest, AP views of the abdomen in upright and supine positions. CLINICAL INDICATION: Reason: nausea, vomiting, abdominal pain / Spl. Instructions: / History: COMPARISON: 01/02/2019. FINDINGS: The heart is not enlarged. Mediastinal/hilar contours are stable. New parenchymal opacities in the in frahilar right lung and bilateral lung bases. No pleural effusion or pneumothorax. No abnormal small or large bowel dilatation. Mild colonic stool content. No abnormal soft tissue ma ss effect. No suspicious calcifications are seen. No free intraperitoneal gas. IMPRESSION: 1. New parenchymal opacities in the infrahilar right lung and bilateral lung bases may represent con solidative process pneumonia or atelectasis. Electronically signed by: Collins Espinosa MD (05/22/2020 8:28 AM) [id number]
[2020-05-22] MEDS ORDERED: POTASSIUM PHOSPHATE,MONOBASIC 500 MG TABLET. PO STA (09:38)
[2020-05-22 10:22] VITALS: BP 191/100
[2020-05-22] MEDS ORDERED: PROM50SU7 RC (10:27)
== END 2020-05-22 10:39 | disposition home or self-care (01) ==
LOC: ER 06:48
DX: E11.43 Type 2 diabetes mellitus with diabetic autonomic (poly)neuropathy (principal); K31.84 Gastroparesis; R11.2 Nausea with vomiting, unspecified; J45.909 Unspecified asthma, uncomplicated; E78.00 Pure hypercholesterolemia, unspecified; I10 Essential (primary) hypertension; G43.909 Migraine, unspecified, not intractable, without status migrainosus; G89.29 Other chronic pain; F17.200 Nicotine dependence, unspecified, uncomplicated
CPT/HCPCS: 36415; 74022; 80053; 82010; 83690; 83735; 85025; 96361; 96374; 96375; 99285; J1630; J2060; J2405; J7030

== ENCOUNTER → 2020-06-20 | Outpatient (CLI) | payer MEDICARE ==
[2020-05-22 10:22] VITALS: BP 191/100
[~2020-06-20] MED LIST changes: +PROM50SU7 RC
[2020-06-20 12:34] LABS: CALCIUM 8.7 mg/dL (8.5-10.1); CREATININE 1.5 mg/dL (0.7-1.3); GFR 50.8; PHOSPHORUS 3.7 mg/dL (2.6-4.7); POTASSIUM 4.2 mmol/L (3.5-5.1)
== END ==
LOC: LAB 11:22
PROVIDERS: ATTEND Internal Medicine Nephrology
DX: N18.32 Chronic kidney disease, stage 3b (principal)
CPT/HCPCS: 36415; 80069